=== PATIENT | female | born 1945 | race Caucasian/White ===

== ENCOUNTER 2018-05-20 09:41 | Observation (INO) | payer MEDICARE, SELFPAY ==
[2018-05-20] VITALS (7 sets, daily range): BP systolic 97–123; BP diastolic 58–75; PULSE 75–112; RESP 12–17; TEMP 36.6–36.8; O2SAT 97–100; BMI 22.6; BMI 22.7
[2018-05-20] MEDS: Activated Charcoal/Sorbitol 25 GM/120 ML BOT PO ×2 (09:52→11:07)
--- NOTE | 2018-05-20 09:57 | ED.VISSUMM ---
- ER Visit Summary Date of Service: 05/20/18 Chief Complaint: Overdose History of Present Illness: The patient is a 72 F who has schizophrenia Kist her this morning after which she heard voices telling her to kill him she was so shaken up that she took 15 or 16 tablets of 0.5 mg of Ativan. Her brought her into the emergency department about 25 minutes after she took the tablets. She no longer has these thoughts, she denies any somnolence, or lethargy. She denies suicidal ideations, she just wanted to go to sleep and escape the voices. Physical Examination: Not appear in acute distress. Moist mucous membranes, no obvious facial deformity No C-spine tenderness supple neck. Regular rate and rhythm without any obvious murmurs Clear lungs bilaterally speaking in full sentences without any obvious respiratory distress Abdomen soft and nontender no guarding or rebound Moves all extremities without any difficulty or pain. Skin does not show any obvious rashes or lesions, no trauma. She is lucid coherent speaking in full sentences, she has some delusions, no longer has hallucinations. Alert oriented ?3 with no gross focal deficit Emergency Department Course and Treatment: She received charcoal, she has been observed for 2-1/2 hours and has not had any mental status changes. Because of the long half-life of lorazepam I will admit, after which patient will be evaluated by crisis for placement at a psychiatric facility Disposition: Admit to hospital for observation Impression: Overdose on benzodiazepines This note was generated with [employer] dictation software. It may contain incorrect words, spelling, and punctuation that were not noted in review of the chart prior to signing ED Disposition - Plan for ED Patient: Chief Complaint: Overdose Referrals: Care Physician,No Primary [Primary Care Provider] -
[2018-05-20 10:20] LABS: Absolute Lymphocyte Count 1.39 X10^3/ul (0.83-4.51); Absolute Neutrophil Count 2.6 X10^3/uL (2.0-7.7); Basophil# 0.02 X10^3/uL; Basophil% 0.5 % (0-1); Eosinophil# 0.05 X10^3/uL; Eosinophils% 1.2 % (0-5); Hematocrit 41.1 % (37-47); Hemoglobin 13.6 g/dl (12.0-15.0); Lymphocyte # 1.39 X10^3/ul (4.0); Lymphocyte % 32.5 % (19-41); Mean Corp Hgb Conc 33.1 g/gl (32-36); Mean Corpuscular Hgb 31.6 pg (27.0-32.0); Mean Corpuscular Volume 95.4 fL (81-99); Mean Platelet Vol. 9.2 fl (6.2-12.0); Monocyte# 0.24 X10^3/uL; Monocyte% 5.6 % (0-10); Neutrophil # 2.58 X10^3/uL (2.7-7.7); Neutrophil % 60.2 % (47-70); POSITIVE COUNT NO; POSITIVE DIFFERENTIAL NO; POSITIVE MORPHOLOGY NO; Platelet Count 168 K/mm3 (150-450); RBC Distribution Width CV 12.1 % (11.6-14.6); RBC Distribution Width SD 41.8 fl (35.1-43.9); Red Blood Count 4.31 M/mm3 (4.2-5.4); White Blood Count 4.3 K/mm3 (4.4-11.0)
[2018-05-20 10:28] LABS: Anion Gap 8 (5-15); BUN 9 mg/dL (7-18); BUN/Creat Ratio 12.4 RATIO (10-20); Calcium,Total 8.3 mg/dL (8.5-10.1); Chloride 107 mmol/L (98-107); Creatinine, Serum 0.73 mg/dL (0.55-1.02); EST Glomerular Filtration Rate 84 mL/min (>60); Est Glom Filt Rate - Afr Amer 102 mL/min (>60); Glucose 102 mg/dL (74-106); Potassium 3.8 mmol/L (3.5-5.1); Sodium Level 143 mmol/L (136-145)
[2018-05-20 11:02] LABS: Alcohol, Blood (Medical)-Serum < 3.0 mg/dL
--- NOTE | 2018-05-20 11:33 | PCM.HP.STD ---
Problem List (1) Schizophrenia Status: Chronic (2) Suicide attempt Status: Acute History of Present Illness Date of Admission: 05/20/18 Chief Complaint: suicide attempt The patient is a 72 year old F with a history of schizophrenia who today took 15, 0.5 mg Ativan's after she heard voices telling her to kill her with a knife. She is currently doing okay she was given 2 doses of charcoal in the ER. Vital signs are stable respiratory status is stable she is oxygen eating well. She denies having these thoughts and hearing these voices at this time. She has no other medical history and takes no medications for anything. For the last 7 years she has been having intermittent episodes of delusions and hallucinations. She was just increased 2 days ago and her Seroquel from 300 mg daily to 150 mg in the morning and 450 mg at night. Per her this is the worst episode she has ever had. Past Medical History Past Medical History (Chronic Problems): Chronic Problems Schizophrenia (Chronic) Allergies Sulfa (Sulfonamide Antibiotics) Adverse Reaction (Verified 05/20/18 09:42) Itching Home Medications: Ambulatory Orders Medication Instructions Recorded Lorazepam [Ativan] 0.5 mg PO TID 05/20/18 Quetiapine Fumarate [Seroquel Xr] 150 mg PO DAILY 05/20/18 Quetiapine Fumarate [Seroquel Xr] 450 mg PO QHS 05/20/18 Surgical History: cholecystectomy Psychiatric History: Schizophrenia Smoking Status: Former smoker Tobacco Use: Cigarettes Alcohol: None Drugs: None - *Family History Maternal History Items: - - Psych history Paternal History Items: No pertinent history Review of Systems Constitutional: Denies: Chills, Fever, Weight Change HEENT: Denies: Head Aches, Sinus Congestion, Sinus Drainage Cardiovascular: Denies: Chest Pain, Palpitations Respiratory: Denies: Cough, Shortness of Breath, Shortness of breath at rest, Sputum production Gastrointestinal: Denies: Abdominal Pain, Nausea, Vomiting Genitourinary: Denies: Dysuria Musculoskeletal: Denies: Joint Pain, Joint Tenderness Skin: Denies: Rash, Wounds Neurological: Denies: Numbness, Tingling, Focal weakness Psychiatric: Reports: -. Denies: Anxiety, Depression, Homicidal Ideations, Suicidal Ideations Hematologic/ Lymphatic: Denies: Easy Bruising, Easy Bleeding VTE Information - Inpt Only VTE Present on Admission: No Patient Problems: Active and Suspected Problems Suicide attempt (Acute) - Physical Exam General: Alert, Oriented x3, Cooperative, No apparent distress HEENT: Atraumatic, PERRLA, EOMI, Normocephalic Oral: Moist Mucosa Neck: Supple, No JVD Lungs: Clear to auscultation, Normal air movement, No rhonchi, No wheeze, No rales Cardiovascular: Regular rate, Regular Rhythm, Normal S1, Normal S2, No murmurs Abdomen: Soft, Non Tender, Non-Distended, No Hepato-splenomegaly Extremities: No edema, Capillary Refill Less than 3 Seconds Skin: No rashes, No breakdown Neurological: Neuro grossly intact, Sensory exam intact to light touch and pain Psych/Mental Status: Normal Affect, Appropriate, - - Currently denying any hallucinations, or delusions. Speech pattern was normal, thought process was normal Vital Signs Temp Pulse Resp BP Pulse Ox 98.0 F 93 15 102/67 98 05/20/18 09:43 05/20/18 10:44 05/20/18 10:44 05/20/18 10:44 05/20/18 10:44 Oxygen Delivery Method Room Air Weight: 131 lb 9.855 oz Body Mass Index (BMI) 22.6 Laboratory Tests Past 24 Hrs 05/20/18 05/20/18 05/20/18 10:05 10:05 10:05 WBC 4.3 L RBC 4.31 Hgb 13.6 Hct 41.1 MCV 95.4 MCH 31.6 MCHC 33.1 RDW 12.1 RDW Differential 41.8 Plt Count 168 MPV 9.2 Immature Gran % (Auto) 0.000 Neut % (Auto) 60.2 Lymph % (Auto) 32.5 [place] % (Auto) 5.6 Eos % (Auto) 1.2 Baso % (Auto) 0.5 Absolute Neuts (auto) 2.6 Absolute Lymphs (auto) 1.39 Total Counted Not Reportable Sodium 143 Potassium 3.8 Chloride 107 Carbon Dioxide 28.0 Anion Gap 8 BUN 9 Creatinine 0.73 Estim Creat Clear Calc 45.20 Est GFR (MDRD) Af Amer 102 Est GFR (MDRD) Non-Af 84 BUN/Creatinine Ratio 12.4 Glucose 102 Calcium 8.3 L Urine Opiates Screen Urine Methadone Screen Ur Barbiturates Screen Ur Phencyclidine Scrn Ur Amphetamines Screen U Methamphetamin-MDMA U Benzodiazepines Scrn Urine Cocaine Screen U Cannabinoids Screen Ur Drug Screen Comment Ethyl Alcohol < 3.0 05/20/18 11:30 WBC RBC Hgb Hct MCV MCH MCHC RDW RDW Differential Plt Count MPV Immature Gran % (Auto) Neut % (Auto) Lymph % (Auto) [place] % (Auto) Eos % (Auto) Baso % (Auto) Absolute Neuts (auto) Absolute Lymphs (auto) Total Counted Sodium Potassium Chloride Carbon Dioxide Anion Gap BUN Creatinine Estim Creat Clear Calc Est GFR (MDRD) Af Amer Est GFR (MDRD) Non-Af BUN/Creatinine Ratio Glucose Calcium Urine Opiates Screen Pending Urine Methadone Screen Pending Ur Barbiturates Screen Pending Ur Phencyclidine Scrn Pending Ur Amphetamines Screen Pending U Methamphetamin-MDMA Pending U Benzodiazepines Scrn Pending Urine Cocaine Screen Pending U Cannabinoids Screen Pending Ur Drug Screen Comment Pending Ethyl Alcohol Assessment/Plan All Active Problems Suicide attempt (Acute) 1. Schizophrenia with attempted suicide -She states that she took the Ativan because the voices told her to kill her with a knife and she did not want to and she thought that she took the Ativan she would go to sleep and not hurt him -Received 2 doses of charcoal in the ER -Currently stable, respirations are stable, all vital signs are stable -She is medically cleared to be seen by crisis to an inpatient mental health facility -Resume her home Seroquel regimen of 450 mg at night and 150 mg in the morning. DVT: Lovenox/SCDs Code Visit OBSV E&M: 48790 Initial observation care L2
[2018-05-20 11:59] LABS: Amphetamine Urine VISTA NEGATIVE (<1000 ng/mL); Barbiturate Urine VISTA NEGATIVE (< 200 ng/mL); Benzodiazepine Urine VISTA NEGATIVE (< 200 ng/mL); Cocaine Urine VISTA NEGATIVE (< 300 ng/mL); Ecstacy Urine VISTA NEGATIVE (< 500 ng/mL); Methadone Urine VISTA NEGATIVE (< 300 ng/mL); PCP Urine VISTA NEGATIVE (< 25 ng/mL); THC Urine VISTA NEGATIVE (< 50 ng/mL); Vista UDS pH Range 6
--- NOTE | 2018-05-20 15:06 | NURSING ---
spoke with Crisis. after 24hrs obs will reeval. pt
[2018-05-21 02:00] VITALS: BP 119/75; PULSE 72; RESP 16; TEMP 36.4; O2SAT 100
[2018-05-21 09:42] LABS: Absolute Neutrophil Count 3.3 X10^3/uL (2.0-7.7); Basophil# 0.02 X10^3/uL; Basophil% 0.4 % (0-1); Eosinophil# 0.03 X10^3/uL; Eosinophils% 0.7 % (0-5); Hematocrit 38.2 % (37-47); Hemoglobin 13.2 g/dl (12.0-15.0); Lymphocyte % 21.9 % (19-41); Mean Corp Hgb Conc 34.6 g/gl (32-36); Mean Corpuscular Volume 92.7 fL (81-99); Mean Platelet Vol. 9.1 fl (6.2-12.0); Monocyte# 0.19 X10^3/uL; Monocyte% 4.2 % (0-10); Neutrophil # 3.32 X10^3/uL (2.7-7.7); Neutrophil % 72.6 % (47-70); POSITIVE COUNT NO; POSITIVE DIFFERENTIAL NO; POSITIVE MORPHOLOGY NO; Platelet Count 161 K/mm3 (150-450); RBC Distribution Width CV 11.7 % (11.6-14.6); RBC Distribution Width SD 39.6 fl (35.1-43.9); Red Blood Count 4.12 M/mm3 (4.2-5.4); White Blood Count 4.6 K/mm3 (4.4-11.0)
[2018-05-21 09:56] LABS: AST(SGOT) 18 U/L (15-37); Alanine Aminotransfer ALT/SGPT 30 U/L (13-56); Albumin, Serum 3.2 g/dL (3.2-5.0); Alkaline Phosphatase 132 U/L (45-117); Anion Gap 10 (5-15); BUN 6 mg/dL (7-18); BUN/Creat Ratio 10.4 RATIO (10-20); Calcium,Total 8.2 mg/dL (8.5-10.1); Chloride 103 mmol/L (98-107); Creatinine, Serum 0.58 mg/dL (0.55-1.02); EST Glomerular Filtration Rate 109 mL/min (>60); Est Glom Filt Rate - Afr Amer 132 mL/min (>60); Globulin 3.3 g/dL (2.2-4.2); Glucose 119 mg/dL (74-106); Potassium 3.8 mmol/L (3.5-5.1); Protein, Total 6.5 g/dL (6.4-8.2); Sodium Level 140 mmol/L (136-145)
[2018-05-21 10:00] VITALS: BP 124/81; PULSE 86; RESP 16; TEMP 36.7; O2SAT 97
--- NOTE | 2018-05-21 11:17 | CHAPLAIN ---
patient was sleeping; staff indicated that pt had been awake all night and sleeping would be expected for today
--- NOTE | 2018-05-21 15:26 | PCM.PN.HOSP ---
Patient Problems: Active and Suspected Problems Suicide attempt (Acute) Subjective: Patient seen and examined. She was admitted yesterday with a complaint of suicidal attempt of 6-15 0.5 mg Ativan because she had voices telling her to kill her with a knife. She received 2 doses of charcoal in the ED. She denies any suicidal ideation and denies any fever or chills, cough or chest pain, shortness of breath, abdominal pain, diarrhea vomiting. She only complains of tremors. Review of systems otherwise negative. Labs and vitals reviewed. Vitals/I&O's: Vital Signs Temp Pulse Resp BP Pulse Ox 98.1 F 86 16 124/81 H 97 05/21/18 10:00 05/21/18 10:00 05/21/18 10:00 05/21/18 10:00 05/21/18 10:00 Oxygen Delivery Method Room Air Weight: 132 lb 0.91 oz Body Mass Index (BMI) 22.6 Intake and Output for Last 24 Hours 05/19/18 05/20/18 05/21/18 23:59 23:59 23:59 Intake Total 1800 / 1800 1800 / 1800 Output Total 3150 / 3150 Balance 1800 / 1800 -1350 / -1350 General: Alert, Oriented x3, Cooperative, No apparent distress HEENT: Atraumatic, PERRLA, EOMI, Normocephalic Oral: Moist Mucosa Neck: Supple, No JVD, Negative Carotid Bruits Lungs: Clear to auscultation, Normal air movement, No rhonchi, No wheeze, No rales Cardiovascular: Regular rate, Regular Rhythm, Normal S1, Normal S2, No murmurs Abdomen: Bowel Sounds Present, Soft, Non Tender, Non-Distended, No Hepato-splenomegaly Extremities: No clubbing, No cyanosis, No edema, Capillary Refill Less than 3 Seconds Skin: No rashes, No breakdown Musculoskeletal: No Tenderness to Palpation of Joints or Extremities Lymphatic: No Cervical, Supraclavicular, or Inguinal Adenopathy Neurological: Cranial nerves II-XII grossly intact, Neuro grossly intact, Motor Exam 5/5 strength throughout Psych/Mental Status: Normal Affect, Appropriate, Alert and oriented to time, place, person, mood and affect Laboratory Results 05/21/18 09:30: WBC 4.6, RBC 4.12 L, Hgb 13.2, Hct 38.2, MCV 92.7, MCH 32.0, MCHC 34.6, RDW 11.7, RDW Differential 39.6, Plt Count 161, MPV 9.1, Immature Gran % (Auto) 0.200, Neut % (Auto) 72.6 H, Lymph % (Auto) 21.9, [place] % (Auto) 4.2, Eos % (Auto) 0.7, Baso % (Auto) 0.4, Absolute Neuts (auto) 3.3, Absolute Lymphs (auto) 1.00, Total Counted Not Reportable 05/21/18 09:30: Sodium 140, Potassium 3.8, Chloride 103, Carbon Dioxide 27.0, Anion Gap 10, BUN 6 L, Creatinine 0.58, Estim Creat Clear Calc 45.20, Est GFR (MDRD) Af Amer 132, Est GFR (MDRD) Non-Af 109, BUN/Creatinine Ratio 10.4, Glucose 119 H, Calcium 8.2 L, Total Bilirubin 0.20, AST 18, ALT 30, Alkaline Phosphatase 132 H, Total Protein 6.5, Albumin 3.2, Globulin 3.3, Albumin/Globulin Ratio 1.0 Current Medications Enoxaparin Sodium (Lovenox) 40 mg SC DAILY@1000 SAIRA Last Admin: 05/21/18 10:50 Dose: Not Given Magnesium Hydroxide (Milk Of Magnesia) 30 ml PO DAILY PRN PRN PRN Reason: Constipation Medical Necessity - Tobacco Use Smoking Status: Former smoker Tobacco Use: Cigarettes Assessment/Plan All Active Problems Suicide attempt (Acute) 1. Suicidal attempt Attempted suicide with overdose of Ativan on account of auditory hallucinations telling her to call has been with a knife. Has remained stable. He seems to doses of charcoal in the ED. On Seroquel 50 mg at night, 50 mg in the morning. Evaluated by crisis today and pink slipped. Awaiting placement in a psychiatric facility. DVT prophylaxis: Lovenox Code Visit Inpatient E&M: 43915 Subs Hosp L2
--- NOTE | 2018-05-21 15:31 | PN_ITS ---
Patient Problems: Active and Suspected Problems Suicide attempt (Acute) Subjective: Patient seen and examined. She was admitted yesterday with a complaint of suicidal attempt of 6-15 0.5 mg Ativan because she had voices telling her to kill her with a knife. She received 2 doses of charcoal in the ED. She denies any suicidal ideation and denies any fever or chills, cough or chest pain, shortness of breath, abdominal pain, diarrhea vomiting. She only complains of tremors. Review of systems otherwise negative. Labs and vitals reviewed. Vitals/I&O's: Vital Signs Temp Pulse Resp BP Pulse Ox 98.1 F 86 16 124/81 H 97 05/21/18 10:00 05/21/18 10:00 05/21/18 10:00 05/21/18 10:00 05/21/18 10:00 Oxygen Delivery Method Room Air Weight: 132 lb 0.91 oz Body Mass Index (BMI) 22.6 Intake and Output for Last 24 Hours 05/19/18 05/20/18 05/21/18 23:59 23:59 23:59 Intake Total 1800 / 1800 1800 / 1800 Output Total 3150 / 3150 Balance 1800 / 1800 -1350 / -1350 General: Alert, Oriented x3, Cooperative, No apparent distress HEENT: Atraumatic, PERRLA, EOMI, Normocephalic Oral: Moist Mucosa Neck: Supple, No JVD, Negative Carotid Bruits Lungs: Clear to auscultation, Normal air movement, No rhonchi, No wheeze, No rales Cardiovascular: Regular rate, Regular Rhythm, Normal S1, Normal S2, No murmurs Abdomen: Bowel Sounds Present, Soft, Non Tender, Non-Distended, No Hepato- splenomegaly Extremities: No clubbing, No cyanosis, No edema, Capillary Refill Less than 3 Seconds Skin: No rashes, No breakdown Musculoskeletal: No Tenderness to Palpation of Joints or Extremities Lymphatic: No Cervical, Supraclavicular, or Inguinal Adenopathy Neurological: Cranial nerves II-XII grossly intact, Neuro grossly intact, Motor Exam 5/5 strength throughout Psych/Mental Status: Normal Affect, Appropriate, Alert and oriented to time, place, person, mood and affect Laboratory Results 05/21/18 09:30: WBC 4.6, RBC 4.12 L, Hgb 13.2, Hct 38.2, MCV 92.7, MCH 32.0, MCHC 34.6, RDW 11.7, RDW Differential 39.6, Plt Count 161, MPV 9.1, Immature Gran % (Auto) 0.200, Neut % (Auto) 72.6 H, Lymph % (Auto) 21.9, [place] % (Auto) 4.2, Eos % (Auto) 0.7, Baso % (Auto) 0.4, Absolute Neuts (auto) 3.3, Absolute Lymphs (auto) 1.00, Total Counted Not Reportable 05/21/18 09:30: Sodium 140, Potassium 3.8, Chloride 103, Carbon Dioxide 27.0, Anion Gap 10, BUN 6 L, Creatinine 0.58, Estim Creat Clear Calc 45.20, Est GFR (MDRD) Af Amer 132, Est GFR (MDRD) Non-Af 109, BUN/Creatinine Ratio 10.4, Glucose 119 H, Calcium 8.2 L, Total Bilirubin 0.20, AST 18, ALT 30, Alkaline Phosphatase 132 H, Total Protein 6.5, Albumin 3.2, Globulin 3.3, Albumin/Globulin Ratio 1.0 Current Medications Enoxaparin Sodium (Lovenox) 40 mg SC DAILY@1000 SAIRA Last Admin: 05/21/18 10:50 Dose: Not Given Magnesium Hydroxide (Milk Of Magnesia) 30 ml PO DAILY PRN PRN PRN Reason: Constipation Medical Necessity - Tobacco Use Smoking Status: Former smoker Tobacco Use: Cigarettes Assessment/Plan All Active Problems Suicide attempt (Acute) 1. Suicidal attempt * Attempted suicide with overdose of Ativan on account of auditory hallucinations telling her to call has been with a knife. * Has remained stable. He seems to doses of charcoal in the ED. * On Seroquel 50 mg at night, 50 mg in the morning. * Evaluated by crisis today and pink slipped. Awaiting placement in a psychiatric facility. * DVT prophylaxis: Lovenox Code Visit Inpatient E&M: 44050 Subs Hosp L2
--- NOTE | 2018-05-21 15:46 | CHAPLAIN ---
Type of Pastoral Visit _x__ Initial Visit ___ Follow-up Visit ___ On-call Visit ___ General Patient Visit ___ Spiritual Assessment ___ Family Conference ___ Bereavement ___ Rapid Response ___ Code Blue ___ Other (describe below) Pastoral Care Referral From _x__ Patient _x__ Family ___ Nurse ___ Physician ___ [employer] ___ Title Insurance Agent ___ Other (describe below) Sacrament/Intervention _x__ Active listening ___ Anointing ___ Jainism ___ Bereavement ___ Communion _x__ Tanisha exploration ___ _x__ Life review _x__ Prayer ___ Reconciliation ___ Sacrament of Sick _x__ Supportive presence ___ Wedding ___ Other (describe below) Pastoral Comments
[2018-05-21 16:00] VITALS: BP 121/85; PULSE 78; RESP 16; TEMP 36.7; O2SAT 98
--- NOTE | 2018-05-21 16:21 | PCM.TXEXTCAR ---
- Diet 05/20/18 13:45 Diet: Regular Diet Food consistency:: Regular Liquid Consistency:: Regular/Thin Diet Comments: suicide precautions; finger food. VEGAN - Routine Orders/Code Status Enema Type: Fleetz Enema Frequency: Daily PRN Suppository Type: Dulcolax 10mg Suppository Frequency: Daily PRN Code Status: Full Code - Therapies Weight Bearing: Weight bearing as tolerated - Allergies/Procedures Done in Hospital Allergies/Adverse Reactions: Allergies Sulfa (Sulfonamide Antibiotics) Adverse Reaction (Verified 05/20/18 09:42) Itching Procedures: None - Type of Care/Length of Stay Estimated LOS: Convalescent Care Less Than 30 days Type of Care Needed: Skilled - inpatient Psych facility Rehab Potential: Fair Prognosis: Fair - Additional Orders/Day of Discharge Day of Discharge: 05/21/18 - Follow Up Care Primary Care Physician: Care Physician,No Primary [Primary Care Provider] -
[2018-05-21] MEDS: QUEtiapine 100 MG Tablet 300 MG PO (20:16)
[2018-05-21 20:21] VITALS: BP 130/81; PULSE 68; RESP 17; TEMP 36.9; O2SAT 97
[2018-05-22 02:38] VITALS: BP 118/67; PULSE 89; RESP 16; TEMP 36.6; O2SAT 95
--- NOTE | 2018-05-22 08:05 | NURSING ---
called placed to crisis awaiting return call from [facility]
--- NOTE | 2018-05-22 09:11 | NURSING ---
into pt's room as pt continues pacing and now spitting everywhere. attempted to verbally descallate patient, unsuccessful, pt started hitting at this staff member and kicking at sitter. orion STREETER into room also attempting to desculate patient pt continues to spit and hit at staff. attempted to get patient to sit in chair or wear a mask if going to spit, unsuccessful. pt attempting to run out of room. pt's showed up at doorway. pt asked pt's are you the devil? states that the sitter is with the devil and that the staff are the devils. able to talk patient down enough that she's not spitting anymore. updated. informed that this nurse had left a message for crisis at [phone]. informed her that pt is refusing care and this nurse is unable to get seroquel into pt this a.m. discussed ativan/haldol/geodon/restraints. instructed to call crisis again in attempts to expodite placement.
--- NOTE | 2018-05-22 09:23 | NURSING ---
0915 talked with micheal from crisis again aware he placed a call to [facility] from [facility] regarding placement, talked to maryann from [facility] report given aware she is 1-1.5hr away from being here, aware there is a pink slip signed on the chart already, aware that maryann is going to call her physician and see if she can get the transfer process moving. maryann is aware pt's is in the room
[2018-05-22] MEDS: QUEtiapine 100 MG Tablet 300 MG PO (10:36)
[2018-05-22 10:40] VITALS: BP 96/72; PULSE 70; RESP 16; TEMP 36.6; O2SAT 98
--- NOTE | 2018-05-22 10:42 | NURSING ---
pt found sitting quietly on bed with with his arm wrapped around her. pt much more agreeable to treatment at this time, allowed for vitals, assessment and agreeable to take seroquel with her 's reassurance. pt and denies all needs at present and are aware we are awaiting maryann from [facility]. emilie montgomery
--- NOTE | 2018-05-22 11:26 | NURSING ---
transport given report. maryann from [facility] remains here.
--- NOTE | 2018-05-22 13:31 | PCM.DC.SUM ---
Discharge Date and Diagnosis Date of Admission: 05/20/18 Date of Discharge: 05/22/18 - Secondary Discharge Diagnosis Chronic Problems Schizophrenia (Chronic) Hospital Course and Treatment Operations: None Procedures: None Summary of Care Provided: Patient is a 72-year-old female with a history of schizophrenia who was admitted after suicidal attempt. She took 15 0.5 mg Ativan tablets after she heard voices telling her to kill her with a knife. Since she did not want to kill her , she decided to kill herself. She was given 2 doses of charcoal in the ED and admitted for close monitoring. Patient was on Seroquel and Ativan and these were held during her admission. Patient stabilized but subsequently became even more confused and on day of discharge was suspected that everybody over the light of able to come close to her. She became more agitated with the nurses. Her Seroquel was resumed though Ativan was still held. She was evaluated by mental health crisis and pink slipped. She was transferred to [facility] on 05/22/2018. Patient seen and examined prior to discharge. She was quite agitated and spitting and pacing all over the room. She would not answer any questions and would not allow anyone to examine her. Unable to do review of systems and physical examination on day of discharge because of patient's agitation and uncooperation She is to follow-up with her primary care doctor and psychiatrist once she is discharged from [facility].[] - Physical Exam Vital Signs Temp Pulse Resp BP Pulse Ox 97.8 F 70 16 96/72 98 05/22/18 10:40 05/22/18 10:40 05/22/18 10:40 05/22/18 10:40 05/22/18 10:40 Oxygen Delivery Method Room Air Weight: 132 lb 0.91 oz Body Mass Index (BMI) 22.6 Intake and Output for Last 24 Hours 05/20/18 05/21/18 05/22/18 23:59 23:59 23:59 Intake Total 1800 / 1800 2040 / 2040 1000 / 1000 Output Total 4450 / 4450 200 / 200 Balance 1800 / 1800 -2410 / -2410 800 / 800 Laboratory Tests 05/21/18 05/21/18 05/20/18 Range/Units 09:30 09:30 11:30 WBC 4.6 (4.4-11.0) K/mm3 RBC 4.12 L (4.2-5.4) M/mm3 Hgb 13.2 (12.0-15.0) g/dl Hct 38.2 (37-47) % MCV 92.7 (81-99) fL MCH 32.0 (27.0-32.0) pg MCHC 34.6 (32-36) g/gl RDW 11.7 (11.6-14.6) % RDW Differential 39.6 (35.1-43.9) fl Plt Count 161 (150-450) K/mm3 MPV 9.1 (6.2-12.0) fl Immature Gran % (Auto) 0.200 (0.0-0.9) % Neut % (Auto) 72.6 H (47-70) % Lymph % (Auto) 21.9 (19-41) % [place] % (Auto) 4.2 (0-10) % Eos % (Auto) 0.7 (0-5) % Baso % (Auto) 0.4 (0-1) % Absolute Neuts (auto) 3.3 (2.0-7.7) X10^3/uL Absolute Lymphs (auto) 1.00 (0.83-4.51) X10^3/ul Total Counted Not Reportable Sodium 140 (136-145) mmol/L Potassium 3.8 (3.5-5.1) mmol/L Chloride 103 (98-107) mmol/L Carbon Dioxide 27.0 (21.0-32.0) mmol/L Anion Gap 10 (5-15) BUN 6 L (7-18) mg/dL Creatinine 0.58 (0.55-1.02) mg/dL Estim Creat Clear Calc 45.20 ml/min Est GFR (MDRD) Af Amer 132 (>60) mL/min Est GFR (MDRD) Non-Af 109 (>60) mL/min BUN/Creatinine Ratio 10.4 (10-20) RATIO Glucose 119 H (74-106) mg/dL Calcium 8.2 L (8.5-10.1) mg/dL Total Bilirubin 0.20 (0.20-1.00) mg/dL AST 18 (15-37) U/L ALT 30 (13-56) U/L Alkaline Phosphatase 132 H (45-117) U/L Total Protein 6.5 (6.4-8.2) g/dL Albumin 3.2 (3.2-5.0) g/dL Globulin 3.3 (2.2-4.2) g/dL Albumin/Globulin Ratio 1.0 (0.9-2.4) RATIO Urine Opiates Screen NEGATIVE (< 300 ng/mL) Urine Methadone Screen NEGATIVE (< 300 ng/mL) Ur Barbiturates Screen NEGATIVE (< 200 ng/mL) Ur Phencyclidine Scrn NEGATIVE (< 25 ng/mL) Ur Amphetamines Screen NEGATIVE (<1000 ng/mL) U Methamphetamin-MDMA NEGATIVE (< 500 ng/mL) U Benzodiazepines Scrn NEGATIVE (< 200 ng/mL) Urine Cocaine Screen NEGATIVE (< 300 ng/mL) U Cannabinoids Screen NEGATIVE (< 50 ng/mL) Ur Drug Screen Comment Ethyl Alcohol mg/dL 05/20/18 05/20/18 05/20/18 Range/Units 10:05 10:05 10:05 WBC 4.3 L (4.4-11.0) K/mm3 RBC 4.31 (4.2-5.4) M/mm3 Hgb 13.6 (12.0-15.0) g/dl Hct 41.1 (37-47) % MCV 95.4 (81-99) fL MCH 31.6 (27.0-32.0) pg MCHC 33.1 (32-36) g/gl RDW 12.1 (11.6-14.6) % RDW Differential 41.8 (35.1-43.9) fl Plt Count 168 (150-450) K/mm3 MPV 9.2 (6.2-12.0) fl Immature Gran % (Auto) 0.000 (0.0-0.9) % Neut % (Auto) 60.2 (47-70) % Lymph % (Auto) 32.5 (19-41) % [place] % (Auto) 5.6 (0-10) % Eos % (Auto) 1.2 (0-5) % Baso % (Auto) 0.5 (0-1) % Absolute Neuts (auto) 2.6 (2.0-7.7) X10^3/uL Absolute Lymphs (auto) 1.39 (0.83-4.51) X10^3/ul Total Counted Not Reportable Sodium 143 (136-145) mmol/L Potassium 3.8 (3.5-5.1) mmol/L Chloride 107 (98-107) mmol/L Carbon Dioxide 28.0 (21.0-32.0) mmol/L Anion Gap 8 (5-15) BUN 9 (7-18) mg/dL Creatinine 0.73 (0.55-1.02) mg/dL Estim Creat Clear Calc 45.20 ml/min Est GFR (MDRD) Af Amer 102 (>60) mL/min Est GFR (MDRD) Non-Af 84 (>60) mL/min BUN/Creatinine Ratio 12.4 (10-20) RATIO Glucose 102 (74-106) mg/dL Calcium 8.3 L (8.5-10.1) mg/dL Total Bilirubin (0.20-1.00) mg/dL AST (15-37) U/L ALT (13-56) U/L Alkaline Phosphatase (45-117) U/L Total Protein (6.4-8.2) g/dL Albumin (3.2-5.0) g/dL Globulin (2.2-4.2) g/dL Albumin/Globulin Ratio (0.9-2.4) RATIO Urine Opiates Screen (< 300 ng/mL) Urine Methadone Screen (< 300 ng/mL) Ur Barbiturates Screen (< 200 ng/mL) Ur Phencyclidine Scrn (< 25 ng/mL) Ur Amphetamines Screen (<1000 ng/mL) U Methamphetamin-MDMA (< 500 ng/mL) U Benzodiazepines Scrn (< 200 ng/mL) Urine Cocaine Screen (< 300 ng/mL) U Cannabinoids Screen (< 50 ng/mL) Ur Drug Screen Comment Ethyl Alcohol < 3.0 mg/dL Discharge Diet: Low fat/ Low Cholesterol Home Medications: Medications to take at Discharge Lorazepam [Ativan] 0.5 mg PO TID 05/20/18 Quetiapine Fumarate [Seroquel XR] 450 mg PO QHS 05/20/18 Quetiapine Fumarate [Seroquel Xr] 150 mg PO DAILY 05/20/18 Primary Care Physician: Care Physician,No Primary [Primary Care Provider] - Disposition: Psych Hospital or Unit Minutes spent on discharge:: 45 Patient Condition:: Stable Medical Necessity - Tobacco Use Smoking Status: Former smoker Tobacco Use: Cigarettes Meaningful Use Info Meaningful Use Diagnoses (Choose all that apply): None applicable Code Visit Inpatient E&M: 38320 Disch Hosp
== END 2018-05-22 11:34 ==
LOC: ED 10:04 → MS3 14:01
PROVIDERS: Admitting Provider Family Medicine; Emergency Provider Emergency Medicine; Visit Provider Student in an Organized Health Care Education/Training Program
DX: T42.4X2A Poisoning by benzodiazepines, intentional self-harm, initial encounter (principal); R41.0 Disorientation, unspecified; F20.9 Schizophrenia, unspecified; Z79.899 Other long term (current) drug therapy; Z87.891 Personal history of nicotine dependence
CPT/HCPCS: 36415; 80048; 80053; 80307; 80320; 85025; 99218; 99283; G0378; G0480

== ENCOUNTER 2018-06-27 11:48 | Emergency (ER) | payer MEDICARE, SELFPAY ==
[2018-05-20 13:22] VITALS: BMI 22.6
[2018-06-27 11:49] VITALS: BP 125/76; PULSE 92; RESP 20; TEMP 36.9; O2SAT 99; BMI 23.5
[2018-06-27] MEDS: LORazepam 2 MG/ML Syringe IM (12:32)
[2018-06-27] MEDS: DiphenhydrAMINE 50 MG/ML Syringe IM (12:32)
[2018-06-27] MEDS: Haloperidol Lactate 5 MG/ML Vial IM (12:32)
--- NOTE | 2018-06-27 12:33 | ED.VISSUMM ---
- ER Visit Summary Date of Service: 06/27/18 Chief Complaint: Shouting and psychotic History of Present Illness: The patient is a 72 F with a history of schizophrenia, just released from an inpatient psychiatric facility 2 weeks ago presenting with acute psychosis. She has been refusing to take her medications and has been spitting out her pills according to her . She has been increasingly paranoid and combative. He already spoke with her psychiatrist and she was accepted for admission at [facility] where she was previously admitted however she was too combative to be transported there by their private transfer service and she was therefore brought here for medical clearance, possible medication, and then to be transferred. There has been no recent head trauma or infection according to her . He had a brain CT prior to her last admission and a full medical clearance workup. Physical Examination: Also within normal limits. She appears agitated and screaming quite loudly in the emergency department and combative. No signs of head trauma. Heart tones are regular and without murmur. Lungs are clear bilaterally. Abdomen is soft and nontender. No obvious focal or lateralizing neuro findings but she is combative and agitated Test Results: CBC and BMP are pending and will be faxed to the receiving facility Emergency Department Course and Treatment: I discussed the case with the transfer worker at [facility]. They do not require a repeat brain CT since she just had one and requested only a CBC and CMP for their review. It will be faxed. She was treated with Haldol, Benadryl, and Ativan intramuscularly and remained calm and cooperative. She was accepted for admission at their facility and they are sending their private ambulance service. Treatment Plan: Transfer to [facility] Disposition: Transfer Impression: Initial encounter acute psychosis with history of schizophrenia and medication noncompliance This note was generated with [employer] dictation software. It may contain incorrect words, spelling, and punctuation that were not noted in review of the chart prior to signing ED Disposition - Plan for ED Patient: Referrals: Care Physician,No Primary [Primary Care Provider] -
--- NOTE | 2018-06-27 12:36 | ED.DCSUM_ITS ---
- ER Visit Summary Date of Service: 06/27/18 Chief Complaint: Shouting and psychotic History of Present Illness: The patient is a 72 F with a history of schizophrenia, just released from an inpatient psychiatric facility 2 weeks ago presenting with acute psychosis. She has been refusing to take her medications and has been spitting out her pills according to her . She has been increasingly paranoid and combative. He already spoke with her psychiatrist and she was accepted for admission at [facility] where she was previously admitted however she was too combative to be transported there by their private transfer service and she was therefore brought here for medical clearance, possible medication, and then to be transferred. There has been no recent head trauma or infection according to her . He had a brain CT prior to her last admission and a full medical clearance workup. Physical Examination: Also within normal limits. She appears agitated and screaming quite loudly in the emergency department and combative. No signs of head trauma. Heart tones are regular and without murmur. Lungs are clear bilaterally. Abdomen is soft and nontender. No obvious focal or lateralizing neuro findings but she is combative and agitated Test Results: CBC and BMP are pending and will be faxed to the receiving facility Emergency Department Course and Treatment: I discussed the case with the mortgage loan coordinator at [facility]. They do not require a repeat brain CT since she just had one and requested only a CBC and CMP for their review. It will be faxed. She was treated with Haldol, Benadryl, and Ativan intramuscularly and remained calm and cooperative. She was accepted for admission at their facility and they are sending their private ambulance service. Treatment Plan: Transfer to [facility] Disposition: Transfer Impression: Initial encounter acute psychosis with history of schizophrenia and medication noncompliance This note was generated with [employer] dictation software. It may contain incorrect words, spelling, and punctuation that were not noted in review of the chart prior to signing ED Disposition - Plan for ED Patient: Referrals: Care Physician,No Primary [Primary Care Provider] -
[2018-06-27 13:32] LABS: Absolute Lymphocyte Count 1.48 X10^3/ul (0.83-4.51); Absolute Neutrophil Count 6.6 X10^3/uL (2.0-7.7); Basophil# 0.01 X10^3/uL; Basophil% 0.1 % (0-1); Hematocrit 34.7 % (37-47); Hemoglobin 11.7 g/dl (12.0-15.0); Lymphocyte # 1.48 X10^3/ul (4.0); Lymphocyte % 16.7 % (19-41); Mean Corp Hgb Conc 33.7 g/gl (32-36); Mean Corpuscular Hgb 31.1 pg (27.0-32.0); Mean Corpuscular Volume 92.3 fL (81-99); Mean Platelet Vol. 8.9 fl (6.2-12.0); Monocyte# 0.75 X10^3/uL; Monocyte% 8.4 % (0-10); Neutrophil # 6.62 X10^3/uL (2.7-7.7); Neutrophil % 74.6 % (47-70); Platelet Count 234 K/mm3 (150-450); RBC Distribution Width CV 12.2 % (11.6-14.6); RBC Distribution Width SD 39.8 fl (35.1-43.9); Red Blood Count 3.76 M/mm3 (4.2-5.4); White Blood Count 8.9 K/mm3 (4.4-11.0)
[2018-06-27 13:33] LABS: POSITIVE COUNT NO; POSITIVE DIFFERENTIAL NO; POSITIVE MORPHOLOGY NO
[2018-06-27 13:46] LABS: ALB/GLOB Ratio 1.2 RATIO (0.9-2.4); AST(SGOT) 22 U/L (15-37); Alanine Aminotransfer ALT/SGPT 26 U/L (13-56); Albumin, Serum 3.4 g/dL (3.2-5.0); Alkaline Phosphatase 122 U/L (45-117); Anion Gap 10 (5-15); BUN 6 mg/dL (7-18); BUN/Creat Ratio 8.7 RATIO (10-20); Chloride 88 mmol/L (98-107); Creatinine, Serum 0.69 mg/dL (0.55-1.02); EST Glomerular Filtration Rate 90 mL/min (>60); Est Glom Filt Rate - Afr Amer 108 mL/min (>60); Globulin 2.9 g/dL (2.2-4.2); Glucose 80 mg/dL (74-106); Protein, Total 6.3 g/dL (6.4-8.2); Sodium Level 122 mmol/L (136-145)
[2018-06-27 14:13] LABS: Bacteria 0 SEEN /hpf (None Seen); Mucous, Urine 0 SEEN /hpf (<or=2+); Red Blood Cells-Urine 0 SEEN /hpf (0-5); Squamous Epithelial Cells - UA 0 SEEN /hpf (5-10); White Blood Cells 0 SEEN /hpf (0-5)
[2018-06-27 14:17] LABS: Color, Urine Yellow (Yellow); Glucose, Dipstick Normal (Normal); Ketone-Dipstick Negative (Negative); Leukocyte Esterase-Dipstick Negative /ul (Negative); Nitrite-Dipstick Negative (Negative); Occult Blood-Urine Negative /ul (Negative); Protein-Dipstick Negative (Negative); Urine Bilirubin Dipstick Negative (Negative); Urine Clarity Clear (Clear); Urine Urobilinogen Normal (Normal)
[2018-06-27 14:19] VITALS: BP 122/92; PULSE 89; RESP 16; O2SAT 100
[2018-06-27 16:16] VITALS: BP 105/57; PULSE 73; RESP 16; O2SAT 100
--- NOTE | 2018-06-27 17:09 | CON.PCM_ITS ---
Problem List (1) Hyponatremia Status: Acute Consultation - Renal 06/27/18 PCP/ Referring MD: Requesting physician: ER Primary care physician: No Primary Care Phys Reason for Consultation:: Hyponatremia - History of Present Illness History of Present Illness: The patient is a 72 year old F who came in to ER with acute psychosis she was recently admitted at inpatient psychaitric facility and was discharged 2 weeks ago now in psychosis again. apparently she did not take any medications for the last few days sodium was 122. hence renal consulted for clearance tells me that she drank almost 2 gallons of water before she came in. apparently she doesnt do this when she is lucid - Allergies Allergies: Allergies Sulfa (Sulfonamide Antibiotics) Adverse Reaction (Verified 05/20/18 09:42) Itching - Past Medical History Past Medical History (Chronic Problems): Chronic Problems Schizophrenia (Chronic) - Past Surgical History Surgical History: cholecystectomy - Social History Smoking Status: Never smoker - Family History Maternal History Items: - - Psych history Paternal History Items: No pertinent history Review of Systems Unable to obtain accurate/complete ROS d/t: due to medications Patient Problems: Active and Suspected Problems Hyponatremia (Acute) - Physical Exam HEENT: Atraumatic, PERRLA, EOMI, Normocephalic Neck: Supple, No JVD, Negative Carotid Bruits Lungs: Clear to auscultation, Normal air movement Cardiovascular: Regular rate, No murmurs Abdomen: Bowel Sounds Present, Soft, Non Tender Extremities: No edema, Capillary Refill Less than 3 Seconds Skin: No rashes, No breakdown Musculoskeletal: No Tenderness to Palpation of Joints or Extremities Vital Signs Temp Pulse Resp BP Pulse Ox 98.5 F 73 16 105/57 L 100 06/27/18 11:49 06/27/18 16:16 06/27/18 16:16 06/27/18 16:16 06/27/18 16:16 Oxygen Delivery Method Room Air Weight: 62.1 kg Body Mass Index (BMI) 23.5 Laboratory Tests Past 24 Hrs 06/27/18 06/27/18 06/27/18 13:22 13:22 14:07 WBC 8.9 RBC 3.76 L Hgb 11.7 L Hct 34.7 L MCV 92.3 MCH 31.1 MCHC 33.7 RDW 12.2 RDW Differential 39.8 Plt Count 234 MPV 8.9 Immature Gran % (Auto) 0.200 Neut % (Auto) 74.6 H Lymph % (Auto) 16.7 L [place] % (Auto) 8.4 Eos % (Auto) 0.0 Baso % (Auto) 0.1 Absolute Neuts (auto) 6.6 Absolute Lymphs (auto) 1.48 Total Counted Not Reportable Sodium 122 L Potassium 4.0 Chloride 88 L Carbon Dioxide 24.0 Anion Gap 10 BUN 6 L Creatinine 0.69 Estim Creat Clear Calc 45.20 Est GFR (MDRD) Af Amer 108 Est GFR (MDRD) Non-Af 90 BUN/Creatinine Ratio 8.7 L Glucose 80 Calcium 8.0 L Total Bilirubin 0.70 AST 22 ALT 26 Alkaline Phosphatase 122 H Total Protein 6.3 L Albumin 3.4 Globulin 2.9 Albumin/Globulin Ratio 1.2 Urine Color Yellow Urine Clarity Clear Urine pH 8.0 Ur Specific [place] 1.010 Urine Protein Negative Urine Glucose (UA) Normal Urine Ketones Negative Urine Occult Blood Negative Urine Nitrite Negative Urine Bilirubin Negative Urine Urobilinogen Normal Ur Leukocyte Esterase Negative Urine RBC 0 SEEN Urine WBC 0 SEEN Ur Squamous Epith Cells 0 SEEN Urine Bacteria 0 SEEN Urine Mucus 0 SEEN Assessment/Plan All Active Problems Suicide attempt (Acute) Hyponatremia (Acute) Hyponatremia. labs from april with normal sodium. she was in an inpatient psych facility until 2 weeks ago, apparently did not have any sodium issues then also as per . most likely hyponatremia is from polydipsia. she did receive some saline. since the sodium likely went down within last 24 hours, it should be ok even if it comes up to normal. recommend fluid restriction of 1.5 l a day follow up labs can be done at psych facility she is asymptomatic from hyponatremia so I dont have an issue with her going to inpatient psych facility
[2018-06-27 17:25] LABS: Anion Gap 10 (5-15); BUN 5 mg/dL (7-18); BUN/Creat Ratio 8.2 RATIO (10-20); Chloride 94 mmol/L (98-107); Creatinine, Serum 0.61 mg/dL (0.55-1.02); EST Glomerular Filtration Rate 103 mL/min (>60); Est Glom Filt Rate - Afr Amer 124 mL/min (>60); Glucose 85 mg/dL (74-106); Potassium 3.2 mmol/L (3.5-5.1); Sodium Level 131 mmol/L (136-145)
[2018-06-27 19:26] VITALS: BP 108/56; PULSE 84; RESP 16; O2SAT 96
== END 2018-06-27 19:34 ==
PROVIDERS: Emergency Medicine; Emergency Provider Emergency Medicine
DX: F20.9 Schizophrenia, unspecified (principal); E87.1 Hypo-osmolality and hyponatremia; Z91.14 Patient's other noncompliance with medication regimen
CPT/HCPCS: 36415; 80048; 80053; 81001; 85025; 96360; 96361; 96372; 99285; J7040

== ENCOUNTER 2024-02-19 09:30 | Inpatient (IN) | payer MEDICARE, SELFPAY ==
[2024-02-19] VITALS (35 sets, daily range): BP systolic 64–198; BP diastolic 10–178; PULSE 88–105; RESP 14–28; TEMP 35.4–36.9; O2SAT 87–98; BMI 30.1; BMI 29.7
--- NOTE | 2024-02-19 09:33 | EKG12_ITS ---
Test Reason : Blood Pressure : / mmHG Vent. Rate : 102 BPM Atrial Rate : 102 BPM P-R Int : 140 ms QRS Dur : 076 ms QT Int : 352 ms P-R-T Axes : 056 050 059 degrees QTc Int : 458 ms Sinus tachycardia Otherwise normal ECG Confirmed by PEG MOSS, ANNA ([id number]), movie editor GABBY NUÑEZ ([id number]) on 02/20/2024 9:44:09 AM Referred By: Precious Aleman Confirmed By:ANNA RUVALCABA MD
[2024-02-19] MEDS: 0.9% Normal Saline (1000mL) 1,000 ML 1000 ML IV (09:38)
[2024-02-19 09:56] LABS: Absolute Lymphocyte Count 0.39 X10^3/uL (0.83-4.51); Absolute Neutrophil Count 8.3 X10^3/uL (2.0-7.7); Basophil# 0.02 X10^3/uL; Basophil% 0.2 % (0-1); Hematocrit 41.5 % (37-47); Hemoglobin 13.4 g/dL (12.0-15.0); Lymphocyte # 0.39 X10^3/ul (0.83-4.51); Lymphocyte % 4.2 % (19-41); Mean Corp Hgb Conc 32.3 g/dL (32-36); Mean Corpuscular Hgb 29.8 pg (27.0-32.0); Mean Corpuscular Volume 92.4 fL (81-99); Mean Platelet Vol. 9.2 fl (6.2-12.0); Monocyte# 0.53 X10^3/uL; Monocyte% 5.7 % (0-10); NRBC Flagged by Analyzer 0 % (0-5); Neutrophil # 8.26 X10^3/uL (2.7-7.7); Neutrophil % 89.4 % (47-70); POSITIVE DIFFERENTIAL YES; Platelet Count 179 K/mm3 (150-450); RBC Distribution Width CV 13.2 % (11.6-14.6); RBC Distribution Width SD 44.8 fl (35.1-43.9); Red Blood Count 4.49 M/mm3 (4.2-5.4); White Blood Count 9.3 K/mm3 (4.4-11.0)
--- NOTE | 2024-02-19 10:00 | RAD_ITS ---
STUDY: X-RAY - ABDOMEN/PELVIS REASON FOR EXAM: Female, 78 years old. NG tube placement. TECHNIQUE: COMPARISON: None. FINDINGS: NG tube present with tip projected over the left upper quadrant. Mild gaseous distention of bowel. No free air identified. Cholecystectomy clips. Normal visualized osseous structures. RAD/Abdomen Single View (Portable) IMPRESSION: NG tube tip projected over the left upper quadrant of the abdomen. Electronically Signed: Aidan Shore MD at 10:44 EDT ,
--- NOTE | 2024-02-19 10:02 | EDS_ITS ---
HPI History of Present Illness Chief Complaint: GI Bleed Detail of Chief Complaint: Vomiting coffee-ground emesis, hypotension, altered mental status Informant: patient and EMS Onset/Context/Timing Onset: Today Context: Sudden Onset Timing: - (Uncertain) Quality: Coffee-ground emesis and dark stool Location: GI Current Severity: Moderate Maximum Severity: Moderate Worsened by: Unknown Relieved by: Nothing Associated Symptoms Associated Symptoms: Unable to determine Narrative Narrative: Patient is not a good informant. She has a psychiatric history. She is on psychiatric meds. She does know her name. She does know the month. She is uncertain when this started. Patient has not been taking any anti- inflammatories. She is not on any anticoagulant or antithrombotic. She denies chest pain or shortness of breath. She denies abdominal pain. Prior similar symptoms: No Recent Illness/Hospitalization: No PFSH PFSH Medical History unable to obtain unable to obtain Home Medications ?Medication ?Instructions ?Recorded ?Last Taken ?Type lorazepam 0.5 mg tablet 0.5 mg PO TID 05/20/18 05/19/18 22:00 History 0.5mg clozapine 100 mg tablet 100 mg PO BID 02/19/24 Unknown History Allergy/AdvReac Type Severity Reaction Status Date / Time Sulfa (Sulfonamide AdvReac Itching Verified 02/19/24 09:31 Antibiotics) Social History (Updated 02/19/24 @ 10:[address] Dev Mckeon MD) household members: spouse Smoking Status: Never smoker EXAM Physical Exam Const Vital Signs: 02/19/24 09:30 02/19/24 09:30 02/19/24 11:00 Temperature 96.9 F L 97.3 F L Temperature Source Temporal Oral Pulse Rate 104 H 105 H 90 Respiratory Rate 14 14 25 H Blood Pressure 142/113 H 158/10 H 64/40 L Blood Pressure Mean 122 59 48 Pulse Ox 87 87 94 Oxygen Delivery Method Nasal Cannula Nasal Cannula Nasal Cannula Oxygen Flow Rate (L/min) 4 4 02/19/24 11:12 02/19/24 11:13 02/19/24 11:14 Temperature 97.3 F L 97.2 F L Temperature Source Temporal Pulse Rate 89 90 89 Respiratory Rate 22 H 26 H 20 H Blood Pressure 85/55 L 85/55 L 85/55 L Blood Pressure Mean 65 65 65 Pulse Ox 97 97 96 Oxygen Delivery Method Nasal Cannula Nasal Cannula Oxygen Flow Rate (L/min) 4 2 Pulse ox as noted below. Suspect this is erroneous since patient was cold. When she was warmed up pulse ox is 9495% on room air. Positive well nourished, well developed and obese Constitutional Narrative: Patient appears pale. She is covered with coffee-ground emesis. General Appearance ED: well developed and pallor; Negative for cyanotic, diaphoretic or NAD Nutritional Appearance: obese HEENT Reports moist mucous membranes HEENT Narrative: Normocephalic atraumatic. Nares patent. Ears normal. What appears to be coffee-ground material in her mouth and posterior pharynx. Eyes PERRL and EOMs intact bilaterally General Eye ED: Yes pale conjunctiva; Negative for scleral icterus Neck no lymphadenopathy, supple and no JVD Chest Wall inspection of chest normal and palpation of chest normal Resp normal respiratory effort and clear to auscultation bilaterally Cardio regular rhythm, S1 normal heart sound, S2 normal heart sound and no murmurs Rate: tachycardic GI normal to inspection, nondistended, normoactive bowel sounds, non-tender and hepatosplenomegaly; Negative for non-distended Auscultation: hyperactive bowel sounds Back/Spine no CVA tenderness Extremity normal to inspection General Extremety ED: Negative for edema or tenderness General Extremity: Negative for edema Neuro oriented x3 and CN's II-XII intact bilaterally Neuro Narrative: Awake but not alert. Sensorium / Orientation: Negative for alert Psych Psych Narrative: Mood is depressed affect is flat. Skin no rashes or lesions noted, no wounds and No skin turgor normal General Skin Exam: pallor; Negative for jaundice MDM MDM MDM Narrative Medical decision making narrative: Patient was reported to be hypotensive. She received fluid bolus. She is no longer hypotensive. She does appear pale. She does have coffee-ground bloody emesis noted. Since this covered her entire body a rectal was not done since there is bloody emesis over her entire perineal region. Patient was typed and screened and 2 units of blood were typed and crossed to be held. Patient did respond to the fluid bolus. She is tachycardic. Since patient has dark red blood noted in NG will contact Dr. Bettencourt. She also received IV Protonix. There is no history of varices that I was able to obtain from reviewing records. History & Record Review Additional record(s) reviewed:: Prior outpatient record, Prior ED visit and Prior labs Lab Data Attestation: I reviewed the patient's lab results. Lab results narrative: There is a history of hyponatremia and schizophrenia. She has had multiple ER visits for her schizophrenia. CBC is unremarkable with an H&H of 13 4 and 41.5. Platelet count is normal at 179,000. Labs: Laboratory Results - last 24 hr 02/19/24 02/19/24 02/19/24 09:45 10:14 10:45 WBC 9.3 RBC 4.49 Hgb 13.4 Hct 41.5 MCV 92.4 MCH 29.8 MCHC 32.3 RDW Std Deviation 44.8 H RDW Coeff of Andrews 13.2 Plt Count 179 MPV 9.2 Immature Gran % (Auto) 0.500 Neut % (Auto) 89.4 H Lymph % (Auto) 4.2 L [place] % (Auto) 5.7 Eos % (Auto) 0.0 Baso % (Auto) 0.2 Absolute Neuts (auto) 8.3 H Absolute Lymphs (auto) 0.39 L Nucleated RBC % 0 PT 15.1 H INR 1.2 APTT 26.3 Sodium 146 H Potassium 3.5 Chloride 113 H Carbon Dioxide 23.0 Anion Gap 11 BUN 18 Creatinine 1.77 H Estim Creat Clear Calc 27.60 Est GFR (MDRD) Af Amer 36 L Est GFR (MDRD) Non-Af 30 L BUN/Creatinine Ratio 10.2 Glucose 68 L Calcium 9.1 Total Bilirubin 1.60 H AST 3106 H ALT 1436 H Alkaline Phosphatase 298 H Ammonia 35.0 H Total Protein 6.0 L Albumin 2.9 L Globulin 3.1 Albumin/Globulin Ratio 0.9 Urine Color Red Urine Clarity Clear Urine pH 6.0 Ur Specific [place] 1.020 Urine Protein 30 H Urine Glucose (UA) Normal Urine Ketones 5 H Urine Occult Blood 10 H Urine Nitrite Positive H Urine Bilirubin 1 H Urine Urobilinogen 1 H Ur Leukocyte Esterase 25 H Urine RBC 0-5 SEEN Urine WBC 0-5 SEEN Ur Squamous Epith Cells 0 SEEN Urine Bacteria 0 SEEN Urine Mucus 0 SEEN Blood Type B POSITIVE Antibody Screen NEGATIVE Crossmatch See Detail Coags are normal. Because urine appears to be bloody UA was ordered. Also will order hepatic profile if a comprehensive metabolic panel was not ordered initially. Comprehensive metabolic panel is remarkable for elevated creatinine that is 2-3 times baseline at 1.77. Estimated GFR 30. CO2 and anion gap are normal. Sodium is elevated 146. Total bili is 1.6. AST is 3106. ALT is 1436. Alkaline phosphatase is 298. With her altered mental status will obtain an ammonia level. Also will repaged Dr. Bettencourt to make him aware of this. Radiography Chest X-Ray - ED: 1 View (First portable film interpreted by me at 1004 reveals no evidence of infiltrate, pneumothorax. Cardiac silhouette size normal. Mediastinum normal. Structures unremarkable. The NG is curled up in the esophagus. Nurses been informed and will reinsert. Of note patient has dark blood noted in the ) and Read by ED Physician (Repeat x-ray, second, reveals NG to be in proper position. There is no acute findings.) Diagnostic Testing: Clinical Impression(s) from Imaging Studies KUB X-Ray 02/19/24 10:00 IMPRESSION: NG tube tip projected over the left upper quadrant of the abdomen. Electronically Signed: Aidan Shore MD at 10:44 EDT , EKG Initial EKG: Attestation: I personally reviewed and interpreted this EKG as follows: Interpretation: Sinus Tachycardia (Rate is 102. Other than sinus tachycardia the EKG is normal. AK interval is 140 ms. Cures duration 76 ms. QT duration 352 ms. [place] is normal.) Management Discussion w/another healthcare provider: Hospitalist (Dr. Mane will be the hospitalist for admission.) and Employee Communications Coordinator (Dr. Bettencourt's GI) Treatment and Re-Evaluation :: Nurse informing at approximately 1044 the patient's blood pressure is 65 systolic. Additional liter of normal saline was ordered. Dr. Bettencourt was repaged. Suspect her elevated blood pressure was a false reading because she was shaking and could not remain still. Now that she is no longer shaking her blood pressure is low and corresponds with blood pressure reading that EMS documented. Comments:: Spoke with Dr. Bettencourt at 1059. He was made aware of patient's blood pressure. Plan is OR for endoscopy within the next 20 to 30 minutes. Suggested whether patient should be given octreotide. He states taking administer. This was ordered. The hospitalist was paged. Plan is admission to ICU. Critical Care Time Critical Care Time: Yes Critical care time (excluding procedures): 30-74 minutes (31), Including time spent: (History, physical, documentation, independent rotation of laboratory results, therapy for hypotension due to GI bleed,), Discussing w/Patient &/or Family/Ring Barker Operator, Discussing w/Consultants and Arranging Admission or Transfer Discharge Plan Dx/Rx/DC Orders Clinical Impression: Acute hypotension, Acute upper gastrointestinal bleeding, Sinus tachycardia seen on radiographer cardiac catheterization, Hx of schizophrenia, Elevated liver enzymes, Elevated bilirubin, Acute hypernatremia, Acute kidney injury Disposition Disposition: Acute Care Hospital [facility]
[2024-02-19 10:08] LABS: International Normalized Ratio 1.2; Partial Thromboplast Time 26.3 Seconds (24.1-36.2); Prothrombin Time (Protime)PT. 15.1 SECONDS (11.7-14.9)
[2024-02-19] MEDS: Oxymetazoline 0.05% 1 SPRAY SPRAY.BTL 2 SPRAY NASAL (10:08)
[2024-02-19 10:26] LABS: ALB/GLOB Ratio 0.9 RATIO (0.9-2.4); AST(SGOT) 3106 U/L (15-37); Alanine Aminotransfer ALT/SGPT 1436 U/L (13-56); Albumin, Serum 2.9 g/dL (3.2-5.0); Alkaline Phosphatase 298 U/L (45-117); Anion Gap 11 (5-15); BUN 18 mg/dL (7-18); BUN/Creat Ratio 10.2 RATIO (10-20); Calcium,Total 9.1 mg/dL (8.5-10.1); Chloride 113 mmol/L (98-107); Creatinine, Serum 1.77 mg/dL (0.55-1.02); EST Glomerular Filtration Rate 30 mL/min (>60); Est Glom Filt Rate - Afr Amer 36 mL/min (>60); Globulin 3.1 g/dL (2.2-4.2); Glucose 68 mg/dL (74-106); Potassium 3.5 mmol/L (3.5-5.1); Sodium Level 146 mmol/L (136-145)
[2024-02-19 10:30] LABS: Bacteria 0 SEEN /hpf (None Seen); Mucous, Urine 0 SEEN /hpf (<or=2+); Squamous Epithelial Cells - UA 0 SEEN /hpf (5-10)
[2024-02-19 10:32] LABS: Color, Urine Red (Yellow); Glucose, Dipstick Normal (Normal); Ketone-Dipstick 5 mg/dl (Negative); Leukocyte Esterase-Dipstick 25 /ul (Negative); Nitrite-Dipstick Positive (Negative); Occult Blood-Urine 10 /ul (Negative); Protein-Dipstick 30 mg/dl (Negative); Urine Clarity Clear (Clear); Urine Urobilinogen 1 mg/dl (Normal)
[2024-02-19 10:41] LABS: Urine Bilirubin Dipstick 1 mg/dL (Negative)
[2024-02-19 10:45] LABS: Red Blood Cells-Urine 0-5 SEEN /hpf (0-5); White Blood Cells 0-5 SEEN /hpf (0-5)
[2024-02-19] MEDS: Pantoprazole Sodium 80 MG in 0.9% Normal Saline (100mL Bag) 80 ML 10 MG CONT INF ×2 (10:51→21:02)
[2024-02-19] MEDS: 0.9% Normal Saline (1000mL) 1,000 ML 999 ML IV ×2 (10:56→15:00)
[2024-02-19] MEDS: Pantoprazole Sodium 80 MG in 0.9% Normal Saline (50mL Bag) 15 ML 420 MG IV BOLUS (10:57)
[2024-02-19] MEDS: Octreotide 0.1 MG/ML ML 0.05 MG IV (11:08)
--- NOTE | 2024-02-19 11:33 | PCM.HP.STD ---
[facility] - General General Date of Admission: 02/19/24 Date of Service: 02/19/24 Chief Complaint: hematemesis HPI Narrative DINO DELGADO, is a 78 F with a past medical history as outlined was admitted through the ED on 02/19/2024 with a complaint of hematemesis. History was mainly gotten from . According to patient's she woke up in the early hours of this morning with complaints of heartburn. She tried throwing up a few times and her states she had some dark coffee-ground substance coming out. She also subsequently developed diarrhea later in the day. Diarrhea was nonbloody. He said patient felt weak and tired and started having multiple episodes of hematemesis. She admitted to feeling lightheaded and dizzy. She did not take any byeh-cxo-vyebazi pain meds or any blood thinners and was also not on aspirin. She had no history of liver disease. She did have bipolar and schizophrenia and was on clonazepam and lorazepam which she had been taking. Review of systems was otherwise negative. She had never had any history of GI bleed previously. On arrival in the ED, patient was markedly hypotensive with blood pressure down at 66/47. She was on 4 L of oxygen temperature was 95.8 Fahrenheit with pulse rate of 88 respirate rate of 16. Her blood pressure still remained low in the 90s systolic and so she was taken emergently to the endoscopy suite by gastroenterology and she had an urgent EGD which showed a Phyllis-Coy tear which was injected and treated with heater probe and clips were placed. She had a small hiatal hernia and stomach was normal as well as normal second portion of the duodenum. Patient however remained hypotensive and was not responding to fluids so she was emergently admitted to the ICU and critical care was consulted. Patient was seen in the ICU after she had a EGD. She had been started on Levophed and was up to 10 mcg/min. Her 3 sons and [id number] as well as her were by her bedside. She was very weak and lethargic though she could answer questions. She had no active complaints. [facility] Medical History (Updated 02/19/24 @ 14:46 by Arslan Ramos RN) Schizophrenia Medical History unable to obtain Home Medications ?Medication ?Instructions ?Recorded ?Last Taken ?Type lorazepam 0.5 mg tablet 0.5 mg PO DAILY 05/20/18 02/18/24 History clozapine 100 mg tablet 100 mg PO BID 02/19/24 02/18/24 History Allergy/AdvReac Type Severity Reaction Status Date / Time Sulfa (Sulfonamide AdvReac Itching Verified 02/19/24 09:31 Antibiotics) Surgical History (Updated 02/19/24 @ 14:46 by Arslan Ramos RN) History of cholecystectomy History of cholecystectomy Social History (Updated 02/19/24 @ 10:[address] Dev Mckeon MD) household members: spouse Smoking Status: Never smoker ROS Review of Systems ROS Unobtainable: due to encephalopathy Vital Signs Vital Signs Vital Signs: 02/19/24 09:30 02/19/24 09:30 02/19/24 11:00 Temperature 96.9 F L 97.3 F L Temperature Source Temporal Oral Pulse Rate 104 H 105 H 90 Respiratory Rate 14 14 25 H Blood Pressure 142/113 H 158/10 H 64/40 L Blood Pressure Mean 122 59 48 Pulse Ox 87 87 94 Oxygen Delivery Method Nasal Cannula Nasal Cannula Nasal Cannula Oxygen Flow Rate (L/min) 4 4 02/19/24 11:12 02/19/24 11:13 02/19/24 11:14 Temperature 97.3 F L 97.2 F L Temperature Source Temporal Pulse Rate 89 90 89 Respiratory Rate 22 H 26 H 20 H Blood Pressure 85/55 L 85/55 L 85/55 L Blood Pressure Mean 65 65 65 Pulse Ox 97 97 96 Oxygen Delivery Method Nasal Cannula Nasal Cannula Oxygen Flow Rate (L/min) 4 2 Weight Weight: 175 lb 7.807 oz Body Mass Index (BMI) 30.1 Physical Exam Const alert Constitutional Narrative: Patient very weak and frail. Shivering in bed with multiple sheets over her. Orientation / Consciousness: disoriented and lethargic HEENT normocephalic and head/scalp atraumatic Mouth: oral and palatal mucosa normal Eyes PERRL, EOMs intact bilaterally and conjunctivae normal Neck no lymphadenopathy and supple Resp normal respiratory effort, no retractions, no use of accessory muscles and clear to auscultation bilaterally Cardio regular rate, regular rhythm, S1 normal heart sound, S2 normal heart sound and no murmurs GI normal to inspection, nondistended, normoactive bowel sounds, soft to palpation, non-tender and non-distended Extremity normal to inspection, full ROM and no clubbing, cyanosis or edema Skin Skin Narrative: Patient looks very pale Neuro Neuro Narrative: Patient confused and lethargic. Psych Psych Narrative: flat affect, lethargic Results Lab / Micro Data 02/20/24 02:40 02/20/24 02:40 Labs: Laboratory Results - last 24 hr 02/19/24 09:45: WBC 9.3, RBC 4.49, Hgb 13.4, Hct 41.5, MCV 92.4, MCH 29.8, MCHC 32.3, RDW Std Deviation 44.8 H, RDW Coeff of Andrews 13.2, Plt Count 179, MPV 9.2, Immature Gran % (Auto) 0.500, Neut % (Auto) 89.4 H, Lymph % (Auto) 4.2 L, [place] % (Auto) 5.7, Eos % (Auto) 0.0, Baso % (Auto) 0.2, Absolute Neuts (auto) 8.3 H, Absolute Lymphs (auto) 0.39 L, Nucleated RBC % 0, PT 15.1 H, INR 1.2, APTT 26.3, Sodium 146 H, Potassium 3.5, Chloride 113 H, Carbon Dioxide 23.0, Anion Gap 11, BUN 18, Creatinine 1.77 H, Estim Creat Clear Calc 27.60, Est GFR (MDRD) Af Amer 36 L, Est GFR (MDRD) Non-Af 30 L, BUN/Creatinine Ratio 10.2, Glucose 68 L, Calcium 9.1, Total Bilirubin 1.60 H, AST 3106 H, ALT 1436 H, Alkaline Phosphatase 298 H, Total Protein 6.0 L, Albumin 2.9 L, Globulin 3.1, Albumin/Globulin Ratio 0.9, Blood Type B POSITIVE, Antibody Screen NEGATIVE, Crossmatch See Detail 02/19/24 10:14: Urine Color Red, Urine Clarity Clear, Urine pH 6.0, Ur Specific [place] 1.020, Urine Protein 30 H, Urine Glucose (UA) Normal, Urine Ketones 5 H, Urine Occult Blood 10 H, Urine Nitrite Positive H, Urine Bilirubin 1 H, Urine Urobilinogen 1 H, Ur Leukocyte Esterase 25 H, Urine RBC 0-5 SEEN, Urine WBC 0-5 SEEN, Ur Squamous Epith Cells 0 SEEN, Urine Bacteria 0 SEEN, Urine Mucus 0 SEEN 02/19/24 10:20: Lactic Acid 6.0 H* 02/19/24 10:45: Ammonia 35.0 H Imaging Radiology Impression KUB X-Ray 02/19/24 10:00 IMPRESSION: NG tube tip projected over the left upper quadrant of the abdomen. Electronically Signed: Aidan Shore MD at 10:44 EDT Reading Location ID and State: [facility] / [place] , Service support , Assessment & Plan Assessment/Plan (1) Acute upper gastrointestinal bleeding: (2) Acute hypotension: (3) Acute kidney injury: (4) Acute hypernatremia: PLAN: Plan #Shock, likely hemorrhagic, due to GI bleed Patient admitted to ICU after she had the EGD. She was admitted with a complaint of hematemesis and found to be in shock with blood pressure 66/47. She did not respond to IV fluids. She had emergent EGD which showed a Phyllis-Coy tear which was clipped and treated with a heater probe. Hemoglobin was 13.4 on admission and repeat was down to 11.6. WBC is 9.3 and platelets of 179. Lactic acid was elevated at 6 and is now down to 5.7. Total bilirubin is 1.6 and AST as well as ALT are elevated. Creatinine is also elevated at 1.77. Patient currently on Levophed. Critical care on board. Titrate Levophed to maintain MAP of more than 65 Patient and family are refusing blood transfusions and upon extensive counseling, patient is now agreeable to receive blood from a family member. Her sons are willing to donate. Blood bank is to be contacted to see what the procedure is for donating blood from family members for patient if she needs it. Trend CBC to monitor hemoglobin levels I do think it is reasonable to initiate broad-spectrum antibiotics just in case she also has an infectious component to the shock. Blood cultures and urine cultures obtained. #Acute blood loss anemia Likely due to upper GI bleed. Hemoglobin is down to 11. Patient and family do not want transfusion. The energy over his witnesses but said they have their own unique believes that preclude them from getting transfusion. After extensive counseling and her son offering to donate blood, patient was willing to accept blood if it is donated from a family member. I explained to patient and family that the process for getting blood from a family member if it is needed might take quite a while as the blood will need to be processed. said they would only 1 blood if it meant without her getting blood she will . I explained to them that this was a difficult position because if she was going to without the blood and she would need the blood emergently and in that case we may not have enough time to get the blood transfusion from a family member which was the only blood she was willing to take. Patient and family expressed understanding of this. #Lactic acidoses: Lactic acid was elevated but this is to be expected in light of the shock. Blood and urine cultures were ordered to rule out any evidence of infection. Trend lactic acid #DAGOBERTO: Creatinine is 1.77 due to shock most likely. Should improve as shock resolves. Trend creatinine and if it worsens consult nephrology and get urine electrolytes and renal ultrasound. #Ischemic hepatitis Likely due to shock liver from hypotension and anemia. AST and ALT elevated as well as total bilirubin. This should improve as shock resolves. Will monitor. #Schizophrenia and bipolar disorder: Hold her current medications as she is NPO. DVT prophylaxis: SCDs. No anticoagulation due to GI bleed. CODE STATUS: Full code Patient and family members counseled extensively about differences. Full code, DNR CC and DNR CCA. Patient was initially alert but she still is lethargic and is not clear whether she really understood what I was asking her. who is her POA therefore decided that he wanted her to be full code. Family was in agreement. Patient made full code. Total face to face time 20 mins. Charges/Coding Visit Charges Inpatient E&M: 10937 Init Hosp L3 Procedures Hospitalists Procedures: 13102 Advncd Care Plan 30 Min
[2024-02-19] MEDS: Lactated Ringers 1,000 ML 15 ML IV (11:40)
--- NOTE | 2024-02-19 11:50 | NURSING ---
pt down to pacu pre op from the er anesthesia saw pt and family dr friend saw pt and family pt wants to be full code
--- NOTE | 2024-02-19 11:52 | CON.PCM.GI_ITS ---
HPI Consult Data Date of Consult: 02/19/24 HPI Narrative Reason for Consultation: Upper GI bleed HPI Narrative: DINO DELGADO, is a 78 F who presents from home with hematemesis. Patient is not a good informant. Therefore all of her history is from her who is at the bedside. Apparently she woke up about 3:00 this morning with worsening heartburn. She not take any medicines. Later in the morning she developed worsening diarrhea. He said that the diarrhea was nonbloody. Approximately 3 hours ago she started having multiple episodes of hematemesis. She did admit to retching. She denied any coughing. She does not take any axsh-tzn-opfshty pain medicines or prescription blood thinners. She does take a baby aspirin every now and then. She does not take any medicines for reflux on a daily basis on 1 occasion. She has no history of bleeding disorder. She has no history of cirrhosis or chronic liver disease. She has a psychiatric history consistent with bipolar and schizophrenia. She is on clonazepam 100 mg p.o. twice daily and lorazepam 0.5 mg daily.. She has a lactic acid of 6. Her hemoglobin is 13 with a hematocrit of 40. Her platelet count is 171. Her BUN/creatinine ratio is 17 and 1.7. She has been hypotensive to the 80s. Her current MAP is 50. She has gotten 2 L of normal saline wide open. On her repeat labs she had a significant increase in her LFTs and liver enzymes. Her bilirubin is 1.6, AST of 3400 and ALT of 2500, INR is 1.3 [facility] Medical History unable to obtain Home Medications ?Medication ?Instructions ?Recorded ?Last Taken ?Type lorazepam 0.5 mg tablet 0.5 mg PO DAILY 05/20/18 02/18/24 History clozapine 100 mg tablet 100 mg PO BID 02/19/24 02/18/24 History Allergy/AdvReac Type Severity Reaction Status Date / Time Sulfa (Sulfonamide AdvReac Itching Verified 02/19/24 09:31 Antibiotics) Social History (Updated 02/19/24 @ 10:[address] Dev Mckeon MD) household members: spouse Smoking Status: Never smoker ROS Review of Systems ROS Unobtainable: other Constitutional Constitutional: Denies fatigue, fever(s), poor appetite, weight gain or weight loss ENT HEENT: Denies mouth lesions Cardiovascular Cardiovascular: Denies abdominal bloating, abdominal edema or abdominal pain Respiratory/Chest Respiratory/Chest: Denies change in mental status, change in phlegm color, chest congestion or chest tightness Gastrointestinal Gastrointestinal: Denies belching, bloating, change in bowel habits, change in stool character, chewing difficulty, coffee ground emesis, constipation, cramping, diarrhea, dyspepsia, dysphagia, early satiety, excessive flatus, fecal incontinence, heartburn, hematemesis, hematochezia, hemorrhoids, loose stools, melena, nausea, odynophagia, rectal bleeding, tenesmus, vomiting or weight changes Genitourinary Genitourinary: Denies abdominal discomfort, burning urination or itching Musculoskeletal Musculoskeletal: Reports as per HPI; Denies muscle weakness or myalgias Integumentary Integumentary: Denies jaundice Neurologic Neurologic: Denies lack of coordination or weakness Psychiatric Psychiatric: Denies confusion, depression, memory loss, mood swings, paranoia or suicidal ideation Endocrine Endocrinology: Denies systems reviewed and no addt'l complaints, except as documented Hematologic/Lymphatic Hematologic/Lymphatic: Denies anemia, easy bleeding, easy bruising or lymphadenopathy Allergic/Immunologic Allergic/Immunologic: Denies systems reviewed and no addt'l complaints, except as documented Physical Exam Const alert General Appearance: cooperative Orientation / Consciousness: oriented to person HEENT hearing grossly normal bilaterally Head and Scalp: normal to inspection Face and Sinus: face symmetric Nose: external nose normal Mouth: oral and palatal mucosa normal Eyes conjunctivae normal General Eye: normal appearance of both eyes Neck full ROM General: normal visual inspection Lymph Lymphatic: no lymphadenopathy noted Chest inspection of chest normal and palpation of chest normal Chest: symmetrical chest wall rise Resp normal respiratory effort Effort and Inspection: able to speak in complete sentences Cardio regular rate GI non-distended Percussion: normal to percussion Rectal Exam: deferred Neuro Speech: speech normal Gait (Neuro): normal gait Lab / Micro Data 02/19/24 09:45 02/19/24 09:45 Labs: Laboratory Results - last 24 hr 02/19/24 09:45: WBC 9.3, RBC 4.49, Hgb 13.4, Hct 41.5, MCV 92.4, MCH 29.8, MCHC 32.3, RDW Std Deviation 44.8 H, RDW Coeff of Andrews 13.2, Plt Count 179, MPV 9.2, Immature Gran % (Auto) 0.500, Neut % (Auto) 89.4 H, Lymph % (Auto) 4.2 L, Ballard % (Auto) 5.7, Eos % (Auto) 0.0, Baso % (Auto) 0.2, Absolute Neuts (auto) 8.3 H, A bsolute Lymphs (auto) 0.39 L, Nucleated RBC % 0, PT 15.1 H, INR 1.2, APTT 26.3, Sodium 146 H, Potassium 3.5, Chloride 113 H, Carbon Dioxide 23.0, Anion Gap 11, BUN 18, Creatinine 1.77 H, Estim Creat Clear Calc 27.60, Est GFR (MDRD) Af Amer 36 L, Est GFR (MDRD) Non-Af 30 L, BUN/Creatinine Ratio 10.2, Glucose 68 L, Calcium 9.1, Total Bilirubin 1.60 H, AST 3106 H, ALT 1436 H, Alkaline Phosphatase 298 H, Total Protein 6.0 L, Albumin 2.9 L, Globulin 3.1, Albumin/Globulin Ratio 0.9, Blood Type B POSITIVE, Antibody Screen NEGATIVE, Crossmatch See Detail 02/19/24 10:14: Urine Color Red, Urine Clarity Clear, Urine pH 6.0, Ur Specific Ayer 1.020, Urine Protein 30 H, Urine Glucose (UA) Normal, Urine Ketones 5 H, Urine Occult Blood 10 H, Urine Nitrite Positive H, Urine Bilirubin 1 H, Urine Urobilinogen 1 H, Ur Leukocyte Esterase 25 H, Urine RBC 0-5 SEEN, Urine WBC 0-5 SEEN, Ur Squamous Epith Cells 0 SEEN, Urine Bacteria 0 SEEN, Urine Mucus 0 SEEN 02/19/24 10:20: Lactic Acid 6.0 H* 02/19/24 10:45: Ammonia 35.0 H Imaging Radiology Impression KUB X-Ray 02/19/24 10:00 IMPRESSION: NG tube tip projected over the left upper quadrant of the abdomen. Electronically Signed: Aidan Shore MD at 10:44 EDT Reading Location ID and State: [address] [place] [address] , Service support , Assessment & Plan Assessment/Plan (1) Elevated bilirubin: (2) Elevated liver enzymes: (3) Acute kidney injury: (4) Acute hypotension: (5) Acute upper gastrointestinal bleeding: PLAN: Plan 78-year-old with upper GI bleed Acute blood loss anemia-likely secondary to upper GI bleed. Her hemoglobin fortunately is 13. I suspect that we will drop serendipitously. Recommend type and cross for 2 units of packed red blood cells to have on standby. She already received PPI and I recommended that she get dose of octreotide. No history of cirrhosis am not recommending antibiotic therapy at this time. She will need imaging particularly of her liver with ultrasound and CT scan likely with IV contrast once her creatinine improves. I suspect this is just acute prerenal azotemia versus ATN secondary to acute blood loss anemia. She will undergo an upper endoscopy to evaluate upper GI tract. Her , patient and her son were explained alternatives, risk, benefits include not withstanding bleeding, infection, sepsis, perforation, need for return to . She will have an ASA of 3. Charges/Coding Visit Charges Inpatient E&M: 47914 Init Hosp L3
[2024-02-19] MEDS: 0.9% Normal Saline (Pres. free 10 ML Vial (12:40)
[2024-02-19] MEDS: Epinephrine (1 mg/ml) 1 MG/ML VIAL (12:41)
--- NOTE | 2024-02-19 12:41 | EX.PCM.CONCC ---
Assessment & Plan Assessment/Plan (1) Acute hypotension: PLAN: Plan RECOMMENDATIONS: 1. Transfuse blood products as ordered. Check H&H posttransfusion. 2. Follow-up lactate level. 3. Obtain and send cultures as ordered. 4. Start empiric antimicrobials. 5. Supplemental IV fluid hydration. IMPRESSIONS: 1. Acute blood loss anemia The patient presented to the hospital with concern for an upper GI bleed with associated hypotension. She was taken urgently to endoscopy, where a Phyllis-Coy tear was identified. Endoscopic intervention was performed. The patient's blood pressures appear to have stabilized following supplemental IV fluid hydration. I would recommend that we proceed with administering the blood products which were ordered earlier today. In the interim, continue PPI therapy. Check H&H posttransfusion. 2. Lactic acidemia Clinical concern for hypotension in the setting of blood loss anemia. However, we will also plan to collect blood and urine cultures. The patient does have evidence of acute kidney injury, likely secondary to her presenting hypotension. Empiric antibiotics will be initiated for the next 24 to 48 hours. Recommend follow-up lactate level. 3. Acute kidney injury Most likely prerenal in etiology in the setting of #1. Continue gentle IV fluid hydration as ordered. Continue to monitor urine output. There is no current indication for renal replacement therapy. 4. Ischemic hepatitis Continue to monitor transaminase levels daily. Anticipate improvement with stabilization of hemodynamics. 5. History of bipolar disorder/schizophrenia Complicates care, management, recovery and prognosis. Hold home medications for now. Patient to remain NPO. This note was generated with [employer] dictation software. It may contain incorrect words, spelling, and punctuation that were not noted in checking the note before signing. HPI Consult Data Date of Consult: 02/19/24 HPI Narrative HPI Narrative: The patient is a 78-year-old female, with a history as outlined below, who presented to the emergency department on February 18 with altered mental status and coffee-ground emesis. The patient is not on any form of systemic anticoagulation. She did report a history of reflux, but is not currently on any PPI therapy. On presentation to the emergency department, the patient was documented to have a temperature of 96.9 ?F. She was mildly tachycardic and tachypneic but otherwise hemodynamically stable. Initial laboratory evaluation revealed a normal white blood cell count with a hemoglobin of 11.7 g/dL. Chemistry profile was notable for a sodium of 146, chloride of 113 and creatinine of 1.7. Lactate was elevated at 6.0. AST and ALT were increased to 3106 and 1436, respectively. Total bilirubin was increased to 1.6. Urine analysis was positive for nitrites and leukocyte esterase. The patient was taken by gastroenterology to undergo upper endoscopy. 2 L of fluid were administered. The patient was identified as having a Phyllis-Coy tear, which was injected and treated with a heater probe. Clips were deployed. Postprocedure, the patient was admitted to the medical intensive care unit. [facility] Medical History unable to obtain Home Medications ?Medication ?Instructions ?Recorded ?Last Taken ?Type lorazepam 0.5 mg tablet 0.5 mg PO DAILY 05/20/18 02/18/24 History clozapine 100 mg tablet 100 mg PO BID 02/19/24 02/18/24 History Allergy/AdvReac Type Severity Reaction Status Date / Time Sulfa (Sulfonamide AdvReac Itching Verified 02/19/24 09:31 Antibiotics) Social History (Updated 02/19/24 @ 10:[address] Dev Mckeon MD) household members: spouse Smoking Status: Never smoker ROS Review of Systems ROS Unobtainable: due to mental status Physical Exam Const Constitutional Narrative: The patient was evaluated in the PACU following her procedure. She is still somnolent. HEENT normocephalic and head/scalp atraumatic Eyes PERRL, EOMs intact bilaterally and conjunctivae normal Neck supple General: trachea midline Chest inspection of chest normal Resp normal respiratory effort Auscultation: Negative for rales, rhonchi or wheezes Cardio regular rate and regular rhythm GI normal to inspection, nondistended, normoactive bowel sounds Extremity no clubbing, cyanosis or edema Skin no rashes or lesions noted Neuro no focal motor deficits Psych Mood & Affect: flat affect Lab / Micro Data 02/19/24 09:45 02/19/24 09:45 Labs: Laboratory Results - last 24 hr 02/19/24 09:45: WBC 9.3, RBC 4.49, Hgb 13.4, Hct 41.5, MCV 92.4, MCH 29.8, MCHC 32.3, RDW Std Deviation 44.8 H, RDW Coeff of Andrews 13.2, Plt Count 179, MPV 9.2, Immature Gran % (Auto) 0.500, Neut % (Auto) 89.4 H, Lymph % (Auto) 4.2 L, Humphreys % (Auto) 5.7, Eos % (Auto) 0.0, Baso % (Auto) 0.2, Absolute Neuts (auto) 8.3 H, Absolute Lymphs (auto) 0.39 L, Nucleated RBC % 0, PT 15.1 H, INR 1.2, APTT 26.3, Sodium 146 H, Potassium 3.5, Chloride 113 H, Carbon Dioxide 23.0, Anion Gap 11, BUN 18, Creatinine 1.77 H, Estim Creat Clear Calc 27.60, Est GFR (MDRD) Af Amer 36 L, Est GFR (MDRD) Non-Af 30 L, BUN/Creatinine Ratio 10.2, Glucose 68 L, Calcium 9.1, Total Bilirubin 1.60 H, AST 3106 H, ALT 1436 H, Alkaline Phosphatase 298 H, Total Protein 6.0 L, Albumin 2.9 L, Globulin 3.1, Albumin/Globulin Ratio 0.9, Blood Type B POSITIVE, Antibody Screen NEGATIVE, Crossmatch See Detail 02/19/24 10:14: Urine Color Red, Urine Clarity Clear, Urine pH 6.0, Ur Specific [place] 1.020, Urine Protein 30 H, Urine Glucose (UA) Normal, Urine Ketones 5 H, Urine Occult Blood 10 H, Urine Nitrite Positive H, Urine Bilirubin 1 H, Urine Urobilinogen 1 H, Ur Leukocyte Esterase 25 H, Urine RBC 0-5 SEEN, Urine WBC 0-5 SEEN, Ur Squamous Epith Cells 0 SEEN, Urine Bacteria 0 SEEN, Urine Mucus 0 SEEN 02/19/24 10:20: Lactic Acid 6.0 H* 02/19/24 10:45: Ammonia 35.0 H Imaging Radiology Impression KUB X-Ray 02/19/24 10:00 IMPRESSION: NG tube tip projected over the left upper quadrant of the abdomen. Electronically Signed: Aidan Shore MD at 10:44 EDT , Charges/Coding Visit Charges Inpatient E&M: 90667 Init Hosp L3
--- NOTE | 2024-02-19 12:52 | OP.EGD_ITS ---
Patient Name: Amber Torres Procedure Date: 02/19/2024 11:31 AM Date of : 1945 Age: 78 Procedure: Upper GI endoscopy Indications: Hematemesis, Melena Providers: Berry Bettencourt DO Medicines: Monitored Anesthesia Care Patient Profile: This is a 78 year old female. Refer to note in patient chart for documentation of history and physical. Patient has symptoms of acute vomiting. Complications: No immediate complications. Procedure: Pre-Anesthesia Assessment: - Prior to the procedure, a History and Physical was performed, and patient medications and allergies were reviewed. The patient is competent. The risks and benefits of the procedure and the sedation options and risks were discussed with the patient. All questions were answered and informed consent was obtained. Patient identification and proposed procedure were verified by the physician in the pre-procedure area. Mental Status Examination: alert and oriented. Airway Examination: normal oropharyngeal airway and neck mobility. Respiratory Examination: clear to auscultation. CV Examination: normal. Prophylactic Antibiotics: The patient does not require prophylactic antibiotics. Prior Anticoagulants: The patient has taken no anticoagulant or antiplatelet agents. ASA Grade Assessment: IV - A patient with severe systemic disease that is a constant threat to life. After reviewing the risks and benefits, the patient was deemed in satisfactory condition to undergo the procedure. The anesthesia plan was to use monitored anesthesia care (MAC). Immediately prior to administration of medications, the patient was re-assessed for adequacy to receive sedatives. The heart rate, respiratory rate, oxygen saturations, blood pressure, adequacy of pulmonary ventilation, and response to care were monitored throughout the procedure. The physical status of the patient was re-assessed after the procedure. After obtaining informed consent, the endoscope was passed under direct vision. Throughout the procedure, the patient's blood pressure, pulse, and oxygen saturations were monitored continuously. The Endoscope was introduced through the mouth, and advanced to the second part of duodenum. The upper GI endoscopy was accomplished without difficulty. The patient tolerated the procedure well. Scope In: 12:24:11 PM Scope Out: 12:41:08 PM Total Procedure Duration Time 0 hours 16 minutes 57 seconds Findings: A 12 mm bleeding Phyllis-Coy tear with stigmata of recent bleeding was found. Area was successfully injected with 7 mL of a 0.1 mg/mL solution of epinephrine for hemostasis. Coagulation for hemostasis using heater probe was successful. To repair the defect, the tissue edges were approximated and three hemostatic clips were successfully placed. Closure of the defect was successful. Clip steel rod buster: [place]. There was no bleeding at the end of the procedure. A small hiatal hernia was present. The entire examined stomach was normal. The second portion of the duodenum was normal. Impression: - Phyllis-Coy tear. Injected. Treated with a heater probe. Clips were placed. Clip steel rod buster: [place] [employer]. - Small hiatal hernia. - Normal stomach. - Normal second portion of the duodenum. - No specimens collected. Recommendation: - Discharge patient to home. - Resume previous diet. - Continue present medications. Procedure Code(s): --- Professional --- 18910, Esophagogastroduodenoscopy, flexible, transoral; with control of bleeding, any method CPT copyright 2021 [employer]. All rights reserved. The codes documented in this report are preliminary and upon riding teacher review may be revised to meet current compliance requirements. Berry Bettencourt DO 02/19/2024 12:51:36 PM This report has been signed electronically. Number of Addenda: 0 Note Initiated On: 02/19/2024 11:31 AM
--- NOTE | 2024-02-19 12:52 | OP.CCLET_ITS ---
02/19/2024 Precious Aleman [address] [place] [address] Re : [facility] This procedure was performed on Monday, February 19, 2024. My impressions and recommendations are as follows: Impressions : - Phyllis-Coy tear. Injected. Treated with a heater probe. Clips were placed. Clip chip tester: [employer]. - Small hiatal hernia. - Normal stomach. - Normal second portion of the duodenum. - No specimens collected. Recommendations : - Discharge patient to home. - Resume previous diet. - Continue present medications. My findings are described in the full procedure note, which is enclosed. If I can be of further assistance, please feel free to contact me at . Sincerely, Berry Friend, 02/19/2024 12:51:36 PM This report has been signed electronically.
--- NOTE | 2024-02-19 12:57 | PCM.POST.ANE ---
Anesthesia: Postop Eval I Current Vital Signs Temperature: 96 F Pulse Rate: 96 Blood Pressure: 97/34 Respiratory Rate: 16 Pulse Ox: 96 Oxygen Delivery Method: Nasal Cannula Oxygen Flow Rate (L/min): 3 Assessment Airway patent: Yes Spontaneous unlabored respirations: Yes Mental status: Asleep nausea: No Vomiting: No Anesthesia Complication: No Fluid Hydration Crystalloid volume administer (ml): 2,200 Total IV fluid infused: 2,200 Progress Note Anesthesia document: Postop Eval 1 completed: Yes
--- NOTE | 2024-02-19 13:06 | PCM.POSTANE2 ---
Anesthesia Postop Eval I Sum Postop Eval Completion status Anesthesia document: Postop Eval 1 completed: Yes Anesthesia Postop Eval I Summary Anesthesia Postop Eval I Summary: Anesthesia Postop Eval I: Assessment Summary Airway patent Yes 02/19/24 12:58 [email or web address] Spontaneous unlabored Yes 02/19/24 12:58 [email or web address] respirations Mental status Asleep 02/19/24 12:58 [email or web address] nausea No 02/19/24 12:58 [email or web address] Vomiting No 02/19/24 12:58 [email or web address] Anesthesia Postop Eval I: Fluid Summary Crystalloid volume administer 2,200 02/19/24 12:58 [email or web address] (ml) Colloids volume administered ( ml) Blood Product volume administered (ml) Total IV fluid infused 2,200 02/19/24 12:58 [email or web address] Anesthesia Postop Eval I: Summary Notes Anesthesia Complication No 02/19/24 12:58 [email or web address] Anesthesia Complication Comment: Post-operative progress note Anesthesia: Postop Eval II Evaluation Mental status: Awake Pain Level: 0 nausea: No Vomiting: No
[2024-02-19] MEDS: 0.45% Normal Saline 1,000 ML 125 ML IV ×2 (13:48→22:02)
[2024-02-19 14:29] LABS: Reflex Lactate? Y
[2024-02-19 14:38] LABS: Hematocrit 36.5 % (37-47); Hemoglobin 11.6 g/dL (12.0-15.0)
[2024-02-19 14:42] LABS: Lactic Acid 5.7 mmol/L (0.4-1.9)
[2024-02-19] MEDS: Piperacil/Tazobactam 3.375 GM in 0.9% Normal Saline (50mL MB+) 50 ML IV ×2 (15:28→21:05)
[2024-02-19] MEDS: Norepinephrine 8 MG in 0.9% Normal Saline (250mL Bag) 242 ML 9.4 MG CONT INF (16:30)
[2024-02-19 17:53] LABS: Reflex Lactate? Y
[2024-02-19] MEDS: Dextrose 10%-Water 250 ML IV (19:45)
[2024-02-19] MEDS: 0.9% Saline Lock 10 ML Syringe IV (19:58)
[2024-02-19] MEDS: Vasopressin 20 UNITS in 0.9% Normal Saline (50mL Bag) 24 ML 3 UNITS CONT INF (19:59)
[2024-02-19 20:05] LABS: Bedside Glucose 45 mg/dL (74-106)
[2024-02-19 20:19] LABS: Lactic Acid 5.1 mmol/L (0.4-1.9)
[2024-02-19 20:30] LABS: Bedside Glucose 117 mg/dL (74-106)
--- NOTE | 2024-02-19 20:30 | NURSING ---
Noticed glucose was 68 on labs drawn earlier today. Fingerstick glucose 45. Hypoglycemic protocol ordered and D10 IV given. Blood glucose rechecked and it was 117.
[2024-02-19] MEDS: LORazepam 2 MG/ML Syringe 0.5 MG IV (22:31)
[2024-02-19] MEDS: Norepinephrine 8 MG in 0.9% Normal Saline (250mL Bag) 242 ML 56.3 MG CONT INF (22:32)
[2024-02-19] MEDS: Dext 5%-0.45% NS 1,000 ML 125 ML IV (22:34)
[2024-02-20] VITALS (60 sets, daily range): BP systolic 64–108; BP diastolic 27–86; PULSE 104–112; RESP 24–31; TEMP 36.4–36.9; O2SAT 93–99; BMI 31.1
--- NOTE | 2024-02-20 00:33 | NURSING ---
Pt having significant tremors, BP reading abnormally high. Manual BPs difficult to obtain d/t severe shaking as well, SBPs in the 90s. Dr. Solomon gave verbal consent for respiratory to attempt an arterial line. Respiratory therapist attempted and was unable to get it in successfully. Dr. Solomon notified.
[2024-02-20 00:55] LABS: Bedside Glucose 119 mg/dL (74-106)
[2024-02-20] MEDS: Vasopressin 20 UNITS in 0.9% Normal Saline (50mL Bag) 24 ML 3 UNITS CONT INF ×3 (01:42→18:15)
[2024-02-20 02:47] LABS: Absolute Lymphocyte Count 0.71 X10^3/uL (0.83-4.51); Absolute Neutrophil Count 9.2 X10^3/uL (2.0-7.7); Basophil# 0.05 X10^3/uL; Basophil% 0.5 % (0-1); Eosinophil# 0.36 X10^3/uL; Eosinophils% 3.3 % (0-5); Hematocrit 41.1 % (37-47); Hemoglobin 12.9 g/dL (12.0-15.0); Lymphocyte # 0.71 X10^3/ul (0.83-4.51); Lymphocyte % 6.5 % (19-41); Mean Corp Hgb Conc 31.4 g/dL (32-36); Mean Corpuscular Hgb 29.4 pg (27.0-32.0); Mean Corpuscular Volume 93.6 fL (81-99); Mean Platelet Vol. 9.7 fl (6.2-12.0); Monocyte# 0.61 X10^3/uL; Monocyte% 5.6 % (0-10); NRBC Flagged by Analyzer 0 % (0-5); Neutrophil # 9.19 X10^3/uL (2.7-7.7); Neutrophil % 83.9 % (47-70); POSITIVE MORPHOLOGY YES; Platelet Count 200 K/mm3 (150-450); RBC Distribution Width CV 13.7 % (11.6-14.6); RBC Distribution Width SD 47.3 fl (35.1-43.9); Red Blood Count 4.39 M/mm3 (4.2-5.4); White Blood Count 10.9 K/mm3 (4.4-11.0)
[2024-02-20] MEDS: Norepinephrine 8 MG in 0.9% Normal Saline (250mL Bag) 242 ML 56.3 MG CONT INF ×4 (02:53→20:07)
[2024-02-20] MEDS: 0.9% Saline Lock 10 ML Syringe IV ×3 (02:53→17:32)
[2024-02-20] MEDS: Lactated Ringers 1,000 ML 999 ML IV (03:00)
[2024-02-20] MEDS: Phenylephrine 10 MG in 0.9% Normal Saline (250mL Bag) 249 ML 15 MG CONT INF (03:15)
[2024-02-20 03:19] LABS: Differential Indicated SCAN CRITERIA MET
[2024-02-20] MEDS: Hydrocortisone Sod Succinate 100 MG/2 ML Vial 50 MG IV ×5 (03:22→23:19)
[2024-02-20 03:23] LABS: Differential Comment SCANNED
[2024-02-20 03:27] LABS: Anion Gap 15 (5-15); BUN 32 mg/dL (7-18); BUN/Creat Ratio 12.5 RATIO (10-20); Calcium,Total 7.5 mg/dL (8.5-10.1); Chloride 114 mmol/L (98-107); Creatinine, Serum 2.57 mg/dL (0.55-1.02); EST Glomerular Filtration Rate 19 mL/min (>60); Est Glom Filt Rate - Afr Amer 23 mL/min (>60); Glucose 157 mg/dL (74-106); Sodium Level 141 mmol/L (136-145)
[2024-02-20] MEDS: Sodium Bicarbonate 150 MEQ in Dextrose 5%-Water (1000mL Bag) 1,000 ML 75 MEQ IV (04:05)
[2024-02-20] MEDS: Sodium Bicarbonate 8.4% 50 ML Syringe 50 MEQ IV ×2 (04:10)
[2024-02-20] MEDS: Piperacil/Tazobactam 3.375 GM in 0.9% Normal Saline (50mL MB+) 50 ML IV ×2 (05:08→20:07)
[2024-02-20 05:23] LABS: Bedside Glucose 145 mg/dL (74-106)
[2024-02-20] MEDS: Phenylephrine 10 MG in 0.9% Normal Saline (250mL Bag) 249 ML 165 MG CONT INF (06:15)
[2024-02-20] MEDS: Pantoprazole Sodium 80 MG in 0.9% Normal Saline (100mL Bag) 80 ML 10 MG CONT INF ×2 (06:17→15:37)
--- NOTE | 2024-02-20 07:05 | PN.CC_ITS ---
Assessment & Plan Assessment/Plan (1) Acute hypotension: PLAN: Plan RECOMMENDATIONS: 1. Continue vasopressor support in an attempt to maintain a mean arterial pressure at or above 65 mmHg. 2. Continue empiric broad-spectrum antibiotics. 3. Continue PPI therapy. 4. Continue sodium bicarbonate infusion and increase rate as ordered. 5. Obtain nephrology consultation. 6. Obtain stat CT chest/abdomen/pelvis. 7. Obtain arterial blood gas and follow-up lactate. IMPRESSIONS: 1. Undifferentiated shock with persistent lactic acidemia The patient initially presented to the hospital with concern for an upper GI bleed with associated hypotension. She was taken urgently to endoscopy, where a Phyllis-Coy tear was identified. Endoscopic intervention was performed. However, despite the aforementioned interventions, the patient has continued to decompensate from a clinical perspective, with worsening hypotension. Other potential considerations include sepsis, cardiogenic etiologies and PE. However, the patient's creatinine has worsened, which would preclude the ability to obtain a contrasted CT chest. In addition, in light of her recent GI bleed, I would hold off on anticoagulating her. Will plan to obtain an echocardiogram. In the interim, the patient has been initiated on broad-spectrum antimicrobials. In light of her current clinical status and persistent lactic acidemia, will obtain a noncontrasted CT of the chest, abdomen and pelvis. Continue vasopressor support to maintain mean arterial pressure at or above 65 mmHg. 2. Acute kidney injury Most likely prerenal in etiology in the setting of #1, with evolution to ischemic ATN. Urine output is dropping. Plan to continue sodium bicarbonate infusion as ordered. Will obtain nephrology consultation today. 3. Ischemic hepatitis Continue to monitor transaminase levels daily. Anticipate improvement with stabilization of hemodynamics. 4. Acute metabolic encephalopathy Most likely related to #1 with accompanying metabolic derangements. Plan to obtain arterial blood gas this morning. If mentation worsens, will obtain CT head. 5. History of bipolar disorder/schizophrenia Complicates care, management, recovery and prognosis. Hold home medications for now. Patient to remain NPO. TIME: 37 minutes of critical care time, independent of procedures, was spent addressing the patient's undifferentiated shock, acute kidney injury, ischemic hepatitis, metabolic encephalopathy, review of all data and collaboration with the care team. Subjective Subjective The patient was seen and examined at the bedside this morning. Events from the last 24 hours have been reviewed. The patient is currently afebrile, but did decompensate from a hemodynamic perspective overnight. She is currently requiring vasopressor support, which includes Levophed, vasopressin and phenylephrine. In addition, the patient was initiated on stress dose steroids along with a sodium bicarbonate infusion due to the interval development of worsening renal insufficiency. The patient is arousable but somnolent. The patient's lactate was still elevated last evening. Her creatinine has increased to 2.57. Hemoglobin, however, is stable at 12.9 g/dL. The patient was never transfused any blood products, due to family request. Objective Data Objective Data The patient's most recent lab work, culture data and imaging studies have all been personally reviewed. Blood and urine cultures are pending. Vital Signs: Vital Signs Temp Pulse Resp BP Pulse Ox O2 Del Method O2 Flow Rate 97.9 F 107 H 29 H 87/35 L 94 Nasal Cannula 2 02/20/24 05:00 02/20/24 06:00 02/20/24 06:00 02/20/24 06:45 02/20/24 06:00 02/20/24 06:00 02/20/24 06:00 Oxygen Flow Rate (L/min) 2 Oxygen Delivery Method Nasal Cannula Weight: 182 lb 1 oz Body Mass Index (BMI) 31.1 Intake & Output: Intake and Output for Last 24 Hours 02/18/24 02/19/24 02/20/24 23:59 23:59 23:59 Intake Total 5372.64 / 5440.99 2592.90 / 2592.90 Output Total 200 / 200 40 / 40 Balance 5172.64 / 5240.99 2552.90 / 2552.90 Lab / Micro Data Attestation: I reviewed the patient's lab results. 02/20/24 02:40 02/20/24 07:25 Labs: Laboratory Results - last 24 hr 02/19/24 09:45: WBC 9.3, RBC 4.49, Hgb 13.4, Hct 41.5, MCV 92.4, MCH 29.8, MCHC 32.3, RDW Std Deviation 44.8 H, RDW Coeff of Andrews 13.2, Plt Count 179, MPV 9.2, Immature Gran % (Auto) 0.500, Neut % (Auto) 89.4 H, Lymph % (Auto) 4.2 L, Smith % (Auto) 5.7, Eos % (Auto) 0.0, Baso % (Auto) 0.2, Absolute Neuts (auto) 8.3 H, A bsolute Lymphs (auto) 0.39 L, Nucleated RBC % 0, PT 15.1 H, INR 1.2, APTT 26.3, Sodium 146 H, Potassium 3.5, Chloride 113 H, Carbon Dioxide 23.0, Anion Gap 11, BUN 18, Creatinine 1.77 H, Estim Creat Clear Calc 27.60, Est GFR (MDRD) Af Amer 36 L, Est GFR (MDRD) Non-Af 30 L, BUN/Creatinine Ratio 10.2, Glucose 68 L, Calcium 9.1, Total Bilirubin 1.60 H, AST 3106 H, ALT 1436 H, Alkaline Phosphatase 298 H, Total Protein 6.0 L, Albumin 2.9 L, Globulin 3.1, Albumin/Globulin Ratio 0.9, Blood Type B POSITIVE, Antibody Screen NEGATIVE, Crossmatch See Detail 02/19/24 10:14: Urine Color Red, Urine Clarity Clear, Urine pH 6.0, Ur Specific [place] 1.020, Urine Protein 30 H, Urine Glucose (UA) Normal, Urine Ketones 5 H, Urine Occult Blood 10 H, Urine Nitrite Positive H, Urine Bilirubin 1 H, Urine Urobilinogen 1 H, Ur Leukocyte Esterase 25 H, Urine RBC 0-5 SEEN, Urine WBC 0-5 SEEN, Ur Squamous Epith Cells 0 SEEN, Urine Bacteria 0 SEEN, Urine Mucus 0 SEEN 02/19/24 10:20: Lactic Acid 6.0 H* 02/19/24 10:45: Ammonia 35.0 H 02/19/24 13:47: Lactic Acid 5.7 H* 02/19/24 14:26: Hgb 11.6 L, Hct 36.5 L 02/19/24 19:28: Lactic Acid 5.1 H* 02/19/24 19:47: POC Glucose 45 L 02/19/24 20:12: POC Glucose 117 H 02/20/24 00:36: POC Glucose 119 H 02/20/24 02:40: WBC 10.9, RBC 4.39, Hgb 12.9, Hct 41.1, MCV 93.6, MCH 29.4, MCHC 31.4 L, RDW Std Deviation 47.3 H, RDW Coeff of Andrews 13.7, Plt Count 200, MPV 9.7, Immature Gran % (Auto) 0.200, Neut % (Auto) 83.9 H, Lymph % (Auto) 6.5 L, Smith % (Auto) 5.6, Eos % (Auto) 3.3, Baso % (Auto) 0.5, Absolute Neuts (auto) 9.2 H, A bsolute Lymphs (auto) 0.71 L, Nucleated RBC % 0, Differential Comment SCANNED, Sodium 141, Potassium 5.0, Chloride 114 H, Carbon Dioxide 12.0 L, Anion Gap 15, BUN 32 H, Creatinine 2.57 H, Estim Creat Clear Calc 18.90, Est GFR (MDRD) Af Amer 23 L, Est GFR (MDRD) Non-Af 19 L, BUN/Creatinine Ratio 12.5, Glucose 157 H, Calcium 7.5 L 02/20/24 05:05: POC Glucose 145 H Radiography Diagnostic Testing: Radiology Impression KUB X-Ray 02/19/24 10:00 IMPRESSION: NG tube tip projected over the left upper quadrant of the abdomen. Electronically Signed: Aidan Shore MD at 10:44 EDT Reading Location ID and State: [address] [place] [address] , Service support , Physical Exam Const Constitutional Narrative: Ill-appearing and tremulous. General Appearance: lethargic and ill appearing HEENT normocephalic and head/scalp atraumatic Eyes PERRL, EOMs intact bilaterally and conjunctivae normal Neck supple General: trachea midline Chest inspection of chest normal Resp Effort and Inspection: tachypneic Auscultation: diminished lung sounds Cardio S1 normal heart sound and S2 normal heart sound Rate: tachycardic GI GI Narrative: Nonfocal abdominal tenderness Extremity no clubbing, cyanosis or edema Skin no rashes or lesions noted Neuro CN's II-XII intact bilaterally and no focal motor deficits Psych Mood & Affect: flat affect Charges/Coding Procedures Hospitalists Procedures: [id number] Critical Care 1st Hr
--- NOTE | 2024-02-20 07:05 | PCM.OP.PRO ---
Procedure Report Date of Procedure: 02/20/24 Arterial Line Indication: Hypotension Consent was obtained from: Patient A time-out was completed verifying correct patient, procedure, site, positioning, and special equipment if applicable. Gigi's test was performed to ensure adequate perfusion. The patient's right wrist was prepped and draped in the sterile fashion. An 18-gauge arrow arterial line was introduced into the right radial artery. The catheter was threaded over the guidewire and the needle was removed with the appropriate pulsatile blood return. The catheter was then sutured in place to the skin and a sterile dressing applied. Perfusion to the extremity distal to the point of catheter insertion was checked and found to be adequate. ULTRASOUND GUIDANCE STATEMENT (Vascular Access): I perform ultrasound image acquisition and interpretation for needle placement during this procedure. The vessel was identified and found to be free of thrombosis by compression technique. A safe point of entry was marked at the skin and then angle for access was determined. The needle was guided by obtaining free-flowing fluid and by real-time visualization. Procedures Hospitalists Procedures: [id number] Insertion Catheter Artery
--- NOTE | 2024-02-20 07:07 | US_ITS ---
STUDY: RENAL ULTRASOUND - COMPLETE REASON FOR EXAM: Female, 78 years old. DAGOBERTO TECHNIQUE: Ultrasound evaluation of the kidneys was performed with real-time and static mcgarry-scale imaging. COMPARISON: None. FINDINGS: RIGHT KIDNEY: Normal location of the right kidney, which is normal in size. The right kidney measures 10.5 cm x 5 cm x 4 cm. There is increased echotexture of the renal cortex suggestive of medical renal disease. The renal cortex measures 1.4 cm. There is no right renal mass or cyst. There are no right renal calculi. There is no right hydronephrosis. DISTAL RIGHT URETER: There is non-visualization of the distal right ureter. There is no demonstrated right ureterovesical junction calculus. There is a visualized right ureteral jet. LEFT KIDNEY: Normal location of the left kidney, which is normal in size. The left kidney measures 10.1 cm x 5.17 x 4.6 cm. Increased echotexture of the renal cortex suggestive of medical renal disease. The renal cortex measures 1.5 cm. There is a 2.9 cm x 2.7 cm x 2.8 cm left renal cyst. There are no left renal calculi. There is no left hydronephrosis. DISTAL LEFT URETER: There is non-visualization of the distal left ureter. There is no demonstrated left ureterovesical junction calculus. There is a visualized left ureteral jet. BLADDER: A Doran catheter is seen within the decompressed urinary bladder. A small amount of free fluid is seen in the pelvis. US/Kidney and Bladder IMPRESSION: Left renal cyst. Increased echogenicity of the renal cortex of both kidneys suggestive of bilateral medical renal disease. Electronically Signed: Eulalio Pedroza MD at 9:17 EDT ,
--- NOTE | 2024-02-20 07:09 | CT_ITS ---
STUDY: CT CHEST, ABDOMEN T PELVIS WITHOUT CONTRAST REASON FOR EXAM: Female, 78 years old. Refractory Shock -- Unable to give contrast d/t DAGOBERTO RADIATION DOSAGE (If Supplied By Facility): CTDIvol = ( 15.74 ) mGy, DLP = ( 1314.40 ) mGycm TECHNIQUE: Transaxial imaging was performed without the administration of intravenous contrast material. Multiplanar coronal and sagittal images were reformatted. Individualized dose optimization techniques were used for this CT. COMPARISON: No relevant priors. FINDINGS: CHEST A right-sided central catheter seen with the tip in the superior vena cava. Allergies enlargement of the thyroid gland more prominent on the right side with a substernal extension. Small bilateral pleural effusions with bibasilar compressive atelectasis and/or infiltrate. There are calcifications of the coronary arteries. Normal mediastinum. Normal hilar regions. Normal unenhanced pulmonary arteries. There is atherosclerotic calcification of the aortic arch. There are multi-level degenerative changes of the thoracic spine. Moderate-sized hiatal hernia. ABDOMEN Normal liver. The gallbladder is contracted. Normal spleen. Normal pancreas. Normal bilateral adrenal glands. Normal right kidney. There is a 2.4 cm cyst in the anterior aspect of the upper pole of the left kidney. There is a moderate-sized hiatal hernia. Normal small intestine. I suspect colitis of the left hemicolon although without oral contrast, the examination is limited. Small amount of free fluid is seen in the right lower quadrant. There is scattered atherosclerotic calcification of the abdominal aorta, without a demonstrated aneurysm. Normal inferior vena cava. Normal retroperitoneum. Normal abdominal wall. There are degenerative changes of the visualized lumbar spine. PELVIS Normal urinary bladder. Calcified fibroid uterus. There is scattered atherosclerotic calcification of the pelvic arteries. CT/CT Chest, Abd, Pelvis WO Cont IMPRESSION: Heterogeneous enlargement of thyroid gland with the right substernal extension. Bilateral pleural effusions with bibasilar compressive atelectasis and/or infiltrate. Moderate-sized hiatal hernia. Left renal cyst. Findings suggestive of colitis in the left hemicolon with a small amount of free fluid in the right hemipelvis. Electronically Signed: Eulalio Pedroza MD at 9:14 EDT ,
--- NOTE | 2024-02-20 07:11 | ECHOD_ITS ---
Reason For Study: SHOCK Procedure This was a 2D Doppler, Color Flow transthoracic echocardiogram. The study was technically difficult. Patient was scanned in supine position during reflux assessment. Patient denied Definity and additional imaging. Exam performed portable in ICU/CCU. Left Ventricle Normal LV size. The estimated ejection fraction is 55 %. No evidence for diastolic dysfunction. No regional wall motion abnormalities noted. Right Ventricle Normal RV size. Normal systolic function. Atria The left and right atria are normal. No doppler evidence for ASD. Mitral Valve There is no mitral valve stenosis. No mitral valve insufficiency. Tricuspid Valve There is no tricuspid stenosis. Trivial tricuspid valve insufficiency. Pulmonary artery systolic pressure is 25-30 mmHg. Aortic Valve Trisinus/trileaflet aortic valve. There is no aortic stenosis. No aortic valve insufficiency. Pulmonic Valve There is no pulmonic valvular stenosis. No pulmonic valve insufficiency. Great Vessels Normal aortic root. Pericardium/Pleural No pericardial effusion. MMode/2D Measurements & Calculations LVIDd: 4.8 cm IVSd: 0.67 cm LVOT diam: 2.0 cm LVIDs: 3.5 cm LVPWd: 0.73 cm LVOT area: 3.0 cm2 RVDd: 3.4 cm FS: 28.4 % asc Aorta Diam: 2.7 cm LAV(MOD-bp): 45.3 ml LVAd ap4: 22.9 cm2 LAV(MOD-bp) Indexed: 24.1 ml/m2 LVLd ap4: 6.4 cm LAV(MOD-sp2): 36.2 ml EDV(MOD-sp4): 66.2 ml LAV(MOD-sp4): 47.4 ml EDV(sp4-el): 68.9 ml LVAs ap4: 16.2 cm2 LVLs ap4: 5.6 cm ESV(MOD-sp4): 38.5 ml ESV(sp4-el): 39.6 ml EF(MOD-sp4): 41.8 % EF(sp4-el): 42.5 % SV(MOD-sp4): 27.7 ml SV(sp4-el): 29.2 ml Ao sinus diam: 2.[address] Junction: 2.3 cm LA dimension(2D): 3.7 cm LA A4 area: 18.0 cm2 RA A4 area: 10.1 cm2 TAPSE: 2.0 cm Time Measurements MV dec time: 0.14 sec Doppler Measurements & Calculations MV E max tylor: 66.5 cm/sec Lat Peak E' Tylor: 10.3 cm/sec Med Peak E' Tylor: 9.4 cm/sec MV A max tylor: 64.3 cm/sec E/E' lat: 6.5 E/E' med: 7.1 MV E/A: 1.0 Ao V2 max: 116.5 cm/sec LV V1 max: 69.2 cm/sec MV dec slope: 471.2 cm/sec2 Ao max P.4 mmHg LV V1 max P.9 mmHg Ao V2 mean: 96.8 cm/sec LV V1 mean P.3 mmHg Ao mean P.9 mmHg LV V1 mean: 55.7 cm/sec Ao V2 VTI: 18.5 cm LV V1 VTI: 11.1 cm AV (velocity ratio): 0.60 JONY(I,D): 1.8 cm2 JONY(V,D): 1.8 cm2 SV(LVOT): 33.4 ml PA V2 max: 92.3 cm/sec TR max tylor: 236.6 cm/sec PA max PG (full): 0.95 mmHg TR max P.4 mmHg ECHO/Echo Complete Interpretation Summary The estimated ejection fraction is 55 %. No evidence for diastolic dysfunction. Ordering Physician: Nirav Hall Referring Physician: Precious Aleman Performed By: Moriah Guerra RDCS
[2024-02-20] MEDS: Phenylephrine 10 MG in 0.9% Normal Saline (250mL Bag) 249 ML 270 MG CONT INF ×2 (07:30→08:35)
[2024-02-20 07:52] LABS: International Normalized Ratio 1.7; Prothrombin Time (Protime)PT. 19.6 SECONDS (11.7-14.9)
[2024-02-20 07:53] LABS: Partial Thromboplast Time 31.1 Seconds (24.1-36.2)
[2024-02-20 08:19] LABS: Lactic Acid 6.7 mmol/L (0.4-1.9)
[2024-02-20 08:32] LABS: ALB/GLOB Ratio 0.8 RATIO (0.9-2.4); AST(SGOT) 1936 U/L (15-37); Alanine Aminotransfer ALT/SGPT 1713 U/L (13-56); Albumin, Serum 2.1 g/dL (3.2-5.0); Alkaline Phosphatase 256 U/L (45-117); Anion Gap 14 (5-15); BUN 34 mg/dL (7-18); Bilirubin, Direct 2.64 mg/dL (0.00-0.30); Calcium,Total 7.4 mg/dL (8.5-10.1); Chloride 115 mmol/L (98-107); Creatinine, Serum 2.83 mg/dL (0.55-1.02); EST Glomerular Filtration Rate 17 mL/min (>60); Est Glom Filt Rate - Afr Amer 21 mL/min (>60); Estimated Creatinine Clearance 17.58 ml/min; Globulin 2.5 g/dL (2.2-4.2); Glucose 149 mg/dL (74-106); Lipase 56 U/L (13-75); Potassium 5.3 mmol/L (3.5-5.1); Protein, Total 4.6 g/dL (6.4-8.2); Sodium Level 142 mmol/L (136-145); Troponin-I HS 56 pg/mL (3.0-54.0)
[2024-02-20] MEDS: CHLORHEXIDINE GLUC 2% CLOTH 1 EACH TOWELETTE TOPICAL (09:13)
[2024-02-20] MEDS: Vancomycin HCl 2,000 MG in 0.9% Normal Saline (500mL Bag) 500 ML 250 MG IV (09:13)
[2024-02-20] MEDS: Phenylephrine 10 MG in 0.9% Normal Saline (250mL Bag) 249 ML 240 MG CONT INF (09:28)
[2024-02-20 09:29] LABS: Base Excess -13 mmol/L (-2 to +2); Bicarbonate 12.2 mmol/L (22-26); Blood Gas Specimen Type ART; Mode Not entered; O2 Delivery Device Cannula; PO2 77 mmHG (75-100); SITE L Brach; SO2 95 % (95-99); Total Carbon Dioxide 13 mmol/L; pCO2 21.8 mmHg (35-45); pH 7.35 (7.35-7.45)
--- NOTE | 2024-02-20 09:37 | PCM.RX.CS ---
Consult Antibiotic Management Pharmacy has been consulted to manage selected antibiotic: Vancomycin Type of Intervention Type of Consult: New start Labs Labs: Sodium 142 mmol/L (136-145) 02/20/24 07:25 Potassium 5.3 mmol/L (3.5-5.1) H 02/20/24 07:25 Chloride 115 mmol/L (98-107) H 02/20/24 07:25 Carbon Dioxide 13.0 mmol/L (21.0-32.0) L 02/20/24 07:25 Anion Gap 14 (5-15) 02/20/24 07:25 BUN 34 mg/dL (7-18) H 02/20/24 07:25 Creatinine 2.83 mg/dL (0.55-1.02) H 02/20/24 07:25 Est GFR (MDRD) Af Amer 21 mL/min (>60) L 02/20/24 07:25 Est GFR (MDRD) Non-Af 17 mL/min (>60) L 02/20/24 07:25 BUN/Creatinine Ratio 12.0 RATIO (10-20) 02/20/24 07:25 Glucose 149 mg/dL (74-106) H 02/20/24 07:25 Dosing Weight Weight used for dosin.6 kg Estimated Creatinine Clearance Estimated Creatinine Clearance: 17.6ML/MIN Goal Trough Goal Trough: 15-20 mcg/mL Pharmacy Plan for Drug Dosing Pharmacy Plan for Drug Dosing: Give initial load dose (25mg/kg) of 2000mg IV x1. Will not order a scheduled dose after the initial dose since CrCl < 20. Will order a random vanc level with AM labs on 02/21 and use that level to evaluate if a dose should be given that day. Pharmacy Service will continue to monitor and adjust dosing as required. Follow-Up Labs Follow-Up Labs: Trough: Vancomycin (random) Date/Time Labs Ordered Labs to be done on [date and time ordered]: 02/22/24 0600
--- NOTE | 2024-02-20 10:16 | CASEMGMT ---
SYL POLO Assessment Face to Face with patient for initial transition planning/care coordination assessment. SYL POLO introduced self and role at [facility], pt voices understanding. Pt is A&Ox4 and is resting comfortably in bed and is calm. Pt at bedside. Care providers, pharmacy, and demographics verified. Admitting dx: Syncope LACE Strata: 1 PCP: Precious Aleman listed. Pt states that Dr. Aleman is no longer in office. PCP list provided Specialists: Dr. Mendoza (Psychiatry) Preferred Pharmacy: [facility] [place] Insurance: [facility] A/B Prescription Benefit: Denies, educated about free services such as Good Rx LNOK: Malachicarlos Torres (H), Malachi Torres Jr (Son) Living Arrangements: Pt lives with her in a single story home with a basement and 3 steps to enter ADLs/IADLs: Pt is mainly ind at baseline but the does assist at home PRN Transportation: Pt does not drive. Pt drives DME: Medical alert info provided. Pt states that she has a FWW and a BP Monitor at home. CM to follow for oxygen needs HHC/SNF: Pt states that the pt has a [facility] a [facility] in [place] and was admitted for 3 months at that time. Pt?s goal: Return to PLOF Plan: TBD. Per Dr. Howell, the pt is very sick at this time. Pt remains on 3 pressors. Nephro Consult. GI consult. 6-Click score is 12. PT and OT to evaluate once appropriate. CM and SW to follow. Cori Courtney RN, CM
--- NOTE | 2024-02-20 10:35 | PCM.CONS.R ---
Assessment & Plan Assessment/Plan (1) Acute kidney injury: (2) Acute hypotension: (3) Acute upper gastrointestinal bleeding: (4) Metabolic acidosis: PLAN: Plan This is a 78-year-old female with past medical history significant for bipolar and schizophrenia who presented to the emergency room yesterday with complaints of hematemesis, significantly hypotensive upon admission to the ER, underwent emergent EGD found to have Phyllis-Coy tear which was treated, admitted to ICU now on 3 pressors however blood pressures have improved this morning and rate of pressor support has been reduced. Nephrology consulted for DAGOBERTO. As of 2019 serum creatinine less than 1 mg/dL, gap in lab work until this hospitalization. Creatinine was 1.7 in ER and has risen to 2.8 mg/dL today. Potassium is 5.3 and bicarb is 13, lactic acid level this am 6.7. Patient is on bicarb drip. Renal ultrasound did not show any hydronephrosis. Noncontrast CT of abdomen and pelvis findings suggestive of colitis and left hemicolon with small amount of free fluid in right hemipelvis. UA on admission showed +nitrite, 10 occult blood, 30 protein (possible emmanuel sample), Urine cx pending. BC pending. DAGOBERTO likely secondary to hemorrhagic shock, significant hypotension evolving to ATN. Patient does have some urine output, she is not hypervolemic, bps have improved slightly with IV pressor support rate reduced this morning, she is on nasal cannula 2L. At this time there is no acute indication for RETAIL INVENTORY CONTROL CLERK, however patient may be heading towards needing RETAIL INVENTORY CONTROL CLERK, possibly CRRT and I had lengthy discussion with patient's and son as well as patient this morning. Questions were answered. We will continue to monitor renal function closely. Further orders forthcoming as hospitalization evolves, thank you for allowing us participate in the care of Ms. Torres. HPI Consult Data Date of Consult: 02/20/24 HPI Narrative HPI Narrative: DINO TORRES, is a 78 F female with past medical history significant for bipolar/schizophrenia who was brought to the emergency room yesterday with her for complaints of abdominal pain/heartburn/hematemesis. In the emergency room patient was significantly hypotensive with blood pressure 66/47. She was placed on O2 via nasal cannula. Patient was admitted to ICU and went for emergent EGD which showed Phyllis-Coy tear which was clipped and treated with heater probe. Hemoglobin was 13.4 on admission, lactic acid 6, creatinine 1.77, bicarb 23 and potassium 3.5. Nephrology consulted in view of elevated creatinine. Patient is alert and oriented, echo being done at bedside, and son at bedside. Per patient had not been taking any NSAIDs before hospitalization. Patient had been urinating as normal before hospitalization. No new medications. [facility] Medical History (Updated 02/20/24 @ 10:40 by GIULIANO Patterson) Schizophrenia Medical History unable to obtain Home Medications ?Medication ?Instructions ?Recorded ?Last Taken ?Type lorazepam 0.5 mg tablet 0.5 mg PO DAILY 05/20/18 02/18/24 History clozapine 100 mg tablet 100 mg PO BID 02/19/24 02/18/24 History Allergy/AdvReac Type Severity Reaction Status Date / Time Sulfa (Sulfonamide AdvReac Itching Verified 02/19/24 09:31 Antibiotics) Surgical History (Updated 02/19/24 @ 14:46 by Arslan Ramos RN) History of cholecystectomy History of cholecystectomy Social History (Updated 02/19/24 @ 10:[address] Dev Mckeon MD) household members: spouse Smoking Status: Never smoker ROS ROS Narrative As in HPI and past medical history Physical Exam Narrative Alert and oriented, no apparent distress, lethargic S1, S2, RRR Lung sounds clear anteriorly and posteriorly. No wheezes rhonchi rales noted. On oxygen via nasal cannula Abdomen soft, not tender upon palpation No edema Indwelling Emmanuel with ~100ml clear yellow urine in bag Lab / Micro Data 02/20/24 02:40 02/20/24 07:25 Labs: Laboratory Results - last 24 hr 02/19/24 09:45: Blood Type B POSITIVE, Antibody Screen NEGATIVE, Crossmatch See Detail 02/19/24 10:14: Urine Color Red, Urine Clarity Clear, Urine pH 6.0, Ur Specific Strawn 1.020, Urine Protein 30 H, Urine Glucose (UA) Normal, Urine Ketones 5 H, Urine Occult Blood 10 H, Urine Nitrite Positive H, Urine Bilirubin 1 H, Urine Urobilinogen 1 H, Ur Leukocyte Esterase 25 H, Urine RBC 0-5 SEEN, Urine WBC 0-5 SEEN, Ur Squamous Epith Cells 0 SEEN, Urine Bacteria 0 SEEN, Urine Mucus 0 SEEN 02/19/24 10:20: Lactic Acid 6.0 H* 02/19/24 10:45: Ammonia 35.0 H 02/19/24 13:47: Lactic Acid 5.7 H* 02/19/24 14:26: Hgb 11.6 L, Hct 36.5 L 02/19/24 19:28: Lactic Acid 5.1 H* 02/19/24 19:47: POC Glucose 45 L 02/19/24 20:12: POC Glucose 117 H 02/20/24 00:36: POC Glucose 119 H 02/20/24 02:40: WBC 10.9, RBC 4.39, Hgb 12.9, Hct 41.1, MCV 93.6, MCH 29.4, MCHC 31.4 L, RDW Std Deviation 47.3 H, RDW Coeff of Andrews 13.7, Plt Count 200, MPV 9.7, Immature Gran % (Auto) 0.200, Neut % (Auto) 83.9 H, Lymph % (Auto) 6.5 L, [place] % (Auto) 5.6, Eos % (Auto) 3.3, Baso % (Auto) 0.5, Absolute Neuts (auto) 9.2 H, Absolute Lymphs (auto) 0.71 L, Nucleated RBC % 0, Differential Comment SCANNED, Sodium 141, Potassium 5.0, Chloride 114 H, Carbon Dioxide 12.0 L, Anion Gap 15, BUN 32 H, Creatinine 2.57 H, Estim Creat Clear Calc 18.90, Est GFR (MDRD) Af Amer 23 L, Est GFR (MDRD) Non-Af 19 L, BUN/Creatinine Ratio 12.5, Glucose 157 H, Calcium 7.5 L 02/20/24 05:05: POC Glucose 145 H 02/20/24 07:25: PT Cancelled 02/20/24 07:25: PT 19.6 H, INR Cancelled 02/20/24 07:25: INR 1.7, APTT 31.1, Sodium 142, Potassium 5.3 H, Chloride 115 H, Carbon Dioxide 13.0 L, Anion Gap 14, BUN 34 H, Creatinine 2.83 H, Estim Creat Clear Calc 17.58, Est GFR (MDRD) Af Amer 21 L, Est GFR (MDRD) Non-Af 17 L, BUN/Creatinine Ratio 12.0, Glucose 149 H, Lactic Acid 6.7 H*, Calcium 7.4 L, Total Bilirubin 3.20 H, Direct Bilirubin 2.64 H, AST 1936 H, ALT 1713 H, Alkaline Phosphatase 256 H, Ammonia 66.0 H, Troponin I High Sens 56 H, Total Protein 4.6 L, Albumin 2.1 L, Globulin 2.5, Albumin/Globulin Ratio 0.8 L, Lipase 56 Micro: Microbiology 02/20/24 08:10 Nasal Secretion MRSA (PCR) - Final ABG Data ABG results: ABG 02/20/24 09:25 Specimen Type ART Sample Site L Brach pH 7.35 Bicarbonate Actual 12.2 L Total CO2 13 Base Excess -13 L O2 Saturation 95 O2 % 2.0 ABG pCO2 21.8 L ABG pO2 77 O2 Delivery Device Cannula Vent Mode Not entered Imaging Radiology Impression KUB X-Ray 02/19/24 10:00 IMPRESSION: NG tube tip projected over the left upper quadrant of the abdomen. Electronically Signed: Aidan Shore MD at 10:44 EDT Reading Location ID and State: [address] [place] [address] , Service support , Renal Ultrasound 02/20/24 07:07 IMPRESSION: Left renal cyst. Increased echogenicity of the renal cortex of both kidneys suggestive of bilateral medical renal disease. Electronically Signed: Eulalio Pedroza MD at 9:17 EDT , Chest/Abdomen/Pelvis CT 02/20/24 07:09 IMPRESSION: Heterogeneous enlargement of thyroid gland with the right substernal extension. Bilateral pleural effusions with bibasilar compressive atelectasis and/or infiltrate. Moderate-sized hiatal hernia. Left renal cyst. Findings suggestive of colitis in the left hemicolon with a small amount of free fluid in the right hemipelvis. Electronically Signed: Eulalio Pedroza MD at 9:14 EDT ,
--- NOTE | 2024-02-20 10:53 | CT_ITS ---
STUDY: CT ABDOMEN AND PELVIS WITHOUT CONTRAST REASON FOR EXAM: Female, 78 years old. Abd pain RADIATION DOSAGE (If Supplied By Facility): CTDIvol = ( 18.34 ) mGy, DLP = ( 985.31 ) mGycm TECHNIQUE: Transaxial images were obtained from the dome of the diaphragm to the symphysis pubis with oral contrast, and without intravenous contrast. Gastrografin was ingested. Sagittal and coronal images were reconstructed. Individualized dose optimization techniques were used for this CT. COMPARISON: Comparison is made with prior study done earlier today. FINDINGS: Bilateral pleural effusions with bibasilar dependent atelectasis and/or infiltrates. Coronary artery calcification. Normal liver. There are surgical clips in the gallbladder fossa consistent with a prior cholecystectomy. Normal spleen. Normal pancreas. Small amount of perihepatic and perisplenic fluid. Normal bilateral adrenal glands. Normal right kidney. Normal left kidney. There is a small hiatal hernia. Findings suggestive of prior surgery at the level of the gastroesophageal junction. Contrast is seen within the proximal small bowel loops. Persistent questionable thickening of the left hemicolon more prominent in the rectosigmoid colon. The appendix is visualized and appears normal. Normal abdominal aorta. Normal inferior vena cava. Normal retroperitoneum. A Doran catheter is seen within the decompressed urinary bladder. Calcified fibroid uterus. Normal abdominal wall. There are degenerative changes of the visualized lumbar spine. CT/Abdomen/Pel W ORAL Cont Only IMPRESSION: Questionable colitis involving the left hemicolon as described. Small amount of perihepatic and perisplenic fluid. Status post cholecystectomy. Small bilateral pleural effusions with bibasilar atelectasis and/or infiltration. Electronically Signed: Eulalio Pedroza MD at 15:19 EDT ,
[2024-02-20] MEDS: Phenylephrine 10 MG in 0.9% Normal Saline (250mL Bag) 249 ML 120 MG CONT INF (11:00)
--- NOTE | 2024-02-20 11:10 | CON.PCM.SX_ITS ---
Assessment & Plan Assessment/Plan (1) Acute hypotension: PLAN: I was consulted due to the patient's acute hypotension for possible ischemic bowel. There is unknown etiology as to what started the problem as it started suddenly and the CT scan only showed possible left-sided colitis but this was also unsure as there was no contrast used. The patient is having multisystem organ failure with increased creatinine, shock liver, cardiovascular failure requiring 3 pressors, encephalopathy, increasing lactate. Still unsure as to the etiology. I discussed this with Dr. Hall and the plan will be to order an oral contrast CT scan to try to evaluate the colon or small bowel. Even if there is signs of ischemia unsure if she would survive the operation at that time I would have a conversation with the family about possible palliation Deacon Peter MD Pager: [facility] [address] [place] [address], [address] [place] [address] Office: HPI Consult Data Date of Consult: 02/20/24 HPI Narrative HPI Narrative: DINO DELGADO, is a 78 F who presents with vomiting and abdominal pain. The patient's told me that she woke up yesterday morning at 3 AM with abdominal pain and vomiting. She was brought to the hospital and she subsequently had an EGD which showed a Phyllis-Coy tear in the stomach. She is complaining of pain diffusely in her abdomen with no focal point. She denies nausea or vomiting at this time. She has not had any bleeding per rectum. [facility] Medical History (Updated 02/20/24 @ 10:40 by GIULIANO Patterson) Schizophrenia Medical History unable to obtain Home Medications ?Medication ?Instructions ?Recorded ?Last Taken ?Type lorazepam 0.5 mg tablet 0.5 mg PO DAILY 05/20/18 02/18/24 History clozapine 100 mg tablet 100 mg PO BID 02/19/24 02/18/24 History Allergy/AdvReac Type Severity Reaction Status Date / Time Sulfa (Sulfonamide AdvReac Itching Verified 02/19/24 09:31 Antibiotics) Surgical History (Updated 02/19/24 @ 14:46 by Arslan Ramos RN) History of cholecystectomy History of cholecystectomy Social History (Updated 02/19/24 @ 10:[address] Dev Mckeon MD) household members: spouse Smoking Status: Never smoker ROS Constitutional Constitutional: Reports fatigue; Denies anorexia, chills or fever(s) Eyes Eyes: Denies blurry vision ENT HEENT: Denies abnormal hearing Cardiovascular Cardiovascular: Denies chest pain Respiratory/Chest Respiratory/Chest: Denies cough or dyspnea Gastrointestinal Gastrointestinal: Reports abdominal pain and vomiting; Denies diarrhea, melena, nausea or rectal bleeding Genitourinary Genitourinary: Denies change in urinary stream Musculoskeletal Musculoskeletal: Denies abnormal gait Integumentary Integumentary: Reports jaundice Neurologic Neurologic: Denies dizziness Psychiatric Psychiatric: Denies anxiety Endocrine Endocrinology: Denies flushing Physical Exam Const alert Orientation / Consciousness: confused HEENT normocephalic Eyes PERRL Resp normal respiratory effort Cardio Rate: tachycardic Rhythm: regular rhythm GI soft to palpation Palpation: tender LLQ, RLQ, LUQ and RUQ Extremity normal to inspection Lab / Micro Data 02/20/24 02:40 02/20/24 07:25 Labs: Laboratory Results - last 24 hr 02/19/24 10:20: Lactic Acid 6.0 H* 02/19/24 10:45: Ammonia 35.0 H 02/19/24 13:47: Lactic Acid 5.7 H* 02/19/24 14:26: Hgb 11.6 L, Hct 36.5 L 02/19/24 19:28: Lactic Acid 5.1 H* 02/19/24 19:47: POC Glucose 45 L 02/19/24 20:12: POC Glucose 117 H 02/20/24 00:36: POC Glucose 119 H 02/20/24 02:40: WBC 10.9, RBC 4.39, Hgb 12.9, Hct 41.1, MCV 93.6, MCH 29.4, MCHC 31.4 L, RDW Std Deviation 47.3 H, RDW Coeff of Andrews 13.7, Plt Count 200, MPV 9.7, Immature Gran % (Auto) 0.200, Neut % (Auto) 83.9 H, Lymph % (Auto) 6.5 L, [place] % (Auto) 5.6, Eos % (Auto) 3.3, Baso % (Auto) 0.5, Absolute Neuts (auto) 9.2 H, A bsolute Lymphs (auto) 0.71 L, Nucleated RBC % 0, Differential Comment SCANNED, Sodium 141, Potassium 5.0, Chloride 114 H, Carbon Dioxide 12.0 L, Anion Gap 15, BUN 32 H, Creatinine 2.57 H, Estim Creat Clear Calc 18.90, Est GFR (MDRD) Af Amer 23 L, Est GFR (MDRD) Non-Af 19 L, BUN/Creatinine Ratio 12.5, Glucose 157 H, Calcium 7.5 L 02/20/24 05:05: POC Glucose 145 H 02/20/24 07:25: PT Cancelled 02/20/24 07:25: PT 19.6 H, INR Cancelled 02/20/24 07:25: INR 1.7, APTT 31.1, Sodium 142, Potassium 5.3 H, Chloride 115 H, Carbon Dioxide 13.0 L, Anion Gap 14, BUN 34 H, Creatinine 2.83 H, Estim Creat Clear Calc 17.58, Est GFR (MDRD) Af Amer 21 L, Est GFR (MDRD) Non-Af 17 L, BUN/Creatinine Ratio 12.0, Glucose 149 H, Lactic Acid 6.7 H*, Calcium 7.4 L, T otal Bilirubin 3.20 H, Direct Bilirubin 2.64 H, AST 1936 H, ALT 1713 H, Alkaline Phosphatase 256 H, Ammonia 66.0 H, Troponin I High Sens 56 H, Total Protein 4.6 L, Albumin 2.1 L, Globulin 2.5, Albumin/Globulin Ratio 0.8 L, Lipase 56 Micro: Microbiology 02/20/24 08:10 Nasal Secretion MRSA (PCR) - Final ABG Data ABG results: ABG 02/20/24 09:25 Specimen Type ART Sample Site L Brach pH 7.35 Bicarbonate Actual 12.2 L Total CO2 13 Base Excess -13 L O2 Saturation 95 O2 % 2.0 ABG pCO2 21.8 L ABG pO2 77 O2 Delivery Device Cannula Vent Mode Not entered Imaging Radiology Impression Renal Ultrasound 02/20/24 07:07 IMPRESSION: Left renal cyst. Increased echogenicity of the renal cortex of both kidneys suggestive of bilateral medical renal disease. Electronically Signed: Eulalio Pedroza MD at 9:17 EDT , Chest/Abdomen/Pelvis CT 02/20/24 07:09 IMPRESSION: Heterogeneous enlargement of thyroid gland with the right substernal extension. Bilateral pleural effusions with bibasilar compressive atelectasis and/or infiltrate. Moderate-sized hiatal hernia. Left renal cyst. Findings suggestive of colitis in the left hemicolon with a small amount of free fluid in the right hemipelvis. Electronically Signed: Eulalio Pedroza MD at 9:14 EDT ,
[2024-02-20] MEDS: Norepinephrine 8 MG in 0.9% Normal Saline (250mL Bag) 242 ML 150 MG CONT INF (11:19)
[2024-02-20 11:36] LABS: Reflex Lactate? Y
[2024-02-20 11:39] LABS: Bedside Glucose 128 mg/dL (74-106)
[2024-02-20] MEDS: Ondansetron 4 MG/2 ML Vial IV (12:20)
[2024-02-20] MEDS: Sodium Bicarbonate 150 MEQ in Dextrose 5%-Water (1000mL Bag) 1,000 ML IV ×2 (13:06→20:49)
[2024-02-20] MEDS: Phenylephrine 10 MG in 0.9% Normal Saline (250mL Bag) 249 ML 90 MG CONT INF (13:43)
--- NOTE | 2024-02-20 14:17 | PN_ITS ---
Subjective Subjective Patient seen and examined. Her and son were by her bedside. Patient remained lethargic but she is more responsive today. She remains hypotensive and had an arterial line inserted today for closer monitoring of her blood pressure. She is now on 3 vasopressors namely Daniel-Synephrine, Levophed and phenylephrine. She remains on 2 L of oxygen. She complains of some abdominal pain today. She denies any nausea or vomiting or diarrhea, any fever or chills or shortness of breath. Review of systems otherwise negative. Hemoglobin today is 12.9. Objective Data Objective Data Vital Signs: Vital Signs Temp Pulse Resp BP Pulse Ox O2 Del Method O2 Flow Rate 98.1 F 111 H 28 H 100/57 L 94 Nasal Cannula 2 02/20/24 14:00 02/20/24 14:00 02/20/24 14:00 02/20/24 14:00 02/20/24 14:00 02/20/24 14:00 02/20/24 14:00 Oxygen Flow Rate (L/min) 2 Oxygen Delivery Method Nasal Cannula Weight: 182 lb 0.994 oz Body Mass Index (BMI) 31.1 Intake & Output: Intake and Output for Last 24 Hours 02/18/24 02/19/24 02/20/24 23:59 23:59 23:59 Intake Total 5372.64 / 5440.99 6961.90 / 6961.90 Output Total 200 / 200 90 / 90 Balance 5172.64 / 5240.99 6871.90 / 6871.90 Lab / Micro Data 02/20/24 02:40 02/20/24 07:25 Labs: Laboratory Results - last 24 hr 02/19/24 13:47: Lactic Acid 5.7 H* 02/19/24 14:26: Hgb 11.6 L, Hct 36.5 L 02/19/24 19:28: Lactic Acid 5.1 H* 02/19/24 19:47: POC Glucose 45 L 02/19/24 20:12: POC Glucose 117 H 02/20/24 00:36: POC Glucose 119 H 02/20/24 02:40: WBC 10.9, RBC 4.39, Hgb 12.9, Hct 41.1, MCV 93.6, MCH 29.4, MCHC 31.4 L, RDW Std Deviation 47.3 H, RDW Coeff of Andrews 13.7, Plt Count 200, MPV 9.7, Immature Gran % (Auto) 0.200, Neut % (Auto) 83.9 H, Lymph % (Auto) 6.5 L, [place] % (Auto) 5.6, Eos % (Auto) 3.3, Baso % (Auto) 0.5, Absolute Neuts (auto) 9.2 H, A bsolute Lymphs (auto) 0.71 L, Nucleated RBC % 0, Differential Comment SCANNED, Sodium 141, Potassium 5.0, Chloride 114 H, Carbon Dioxide 12.0 L, Anion Gap 15, BUN 32 H, Creatinine 2.57 H, Estim Creat Clear Calc 18.90, Est GFR (MDRD) Af Amer 23 L, Est GFR (MDRD) Non-Af 19 L, BUN/Creatinine Ratio 12.5, Glucose 157 H, Calcium 7.5 L 02/20/24 05:05: POC Glucose 145 H 02/20/24 07:25: PT Cancelled 02/20/24 07:25: PT 19.6 H, INR Cancelled 02/20/24 07:25: INR 1.7, APTT 31.1, Sodium 142, Potassium 5.3 H, Chloride 115 H, Carbon Dioxide 13.0 L, Anion Gap 14, BUN 34 H, Creatinine 2.83 H, Estim Creat Clear Calc 17.58, Est GFR (MDRD) Af Amer 21 L, Est GFR (MDRD) Non-Af 17 L, BUN/Creatinine Ratio 12.0, Glucose 149 H, Lactic Acid 6.7 H*, Calcium 7.4 L, T otal Bilirubin 3.20 H, Direct Bilirubin 2.64 H, AST 1936 H, ALT 1713 H, Alkaline Phosphatase 256 H, Ammonia 66.0 H, Troponin I High Sens 56 H, Total Protein 4.6 L, Albumin 2.1 L, Globulin 2.5, Albumin/Globulin Ratio 0.8 L, Lipase 56 02/20/24 11:17: POC Glucose 128 H Micro: Microbiology 02/20/24 08:10 Nasal Secretion MRSA (PCR) - Final ABG Data ABG results: ABG 02/20/24 09:25 Specimen Type ART Sample Site L Brach pH 7.35 Bicarbonate Actual 12.2 L Total CO2 13 Base Excess -13 L O2 Saturation 95 O2 % 2.0 ABG pCO2 21.8 L ABG pO2 77 O2 Delivery Device Cannula Vent Mode Not entered Radiography Diagnostic Testing: Radiology Impression Renal Ultrasound 02/20/24 07:07 IMPRESSION: Left renal cyst. Increased echogenicity of the renal cortex of both kidneys suggestive of bilateral medical renal disease. Electronically Signed: Eulalio Pedroza MD at 9:17 EDT , Chest/Abdomen/Pelvis CT 02/20/24 07:09 IMPRESSION: Heterogeneous enlargement of thyroid gland with the right substernal extension. Bilateral pleural effusions with bibasilar compressive atelectasis and/or infiltrate. Moderate-sized hiatal hernia. Left renal cyst. Findings suggestive of colitis in the left hemicolon with a small amount of free fluid in the right hemipelvis. Electronically Signed: Eulalio Pedroza MD at 9:14 EDT , Echocardiogram 02/20/24 07:11 Interpretation Summary The estimated ejection fraction is 55 %. No evidence for diastolic dysfunction. Ordering Physician: Nirav Hall Referring Physician: Precious Aleman Performed By: Moriah Guerra RDCS Physical Exam Const alert Constitutional Narrative: Patient remains very weak and frail, though she is more communicative today. General Appearance: cooperative Orientation / Consciousness: lethargic HEENT normocephalic and head/scalp atraumatic Mouth: dry mucous membranes Eyes PERRL, EOMs intact bilaterally and conjunctivae normal Neck no lymphadenopathy, supple and no JVD Lymph Lymphatic: no lymphadenopathy noted Resp Resp Narrative: mildly diminished breath sounds bibasally, no wheezes or crackles. On 2L of oxygen by nasal canula Cardio regular rate, regular rhythm, S1 normal heart sound, S2 normal heart sound and no murmurs GI normal to inspection, nondistended, normoactive bowel sounds, soft to palpation, non-tender and non-distended Extremity normal to inspection, full ROM and no clubbing, cyanosis or edema Skin Skin Narrative: Patient looks very pale General Skin Exam: no breakdown and turgor normal Neuro CN's II-XII intact bilaterally, no focal motor deficits and no sensory deficits noted Psych Psych Narrative: flat affect, lethargic Assessment & Plan Assessment/Plan (1) Acute upper gastrointestinal bleeding: (2) Acute hypotension: (3) Acute kidney injury: (4) Acute hypernatremia: PLAN: Plan #Shock likely multifactorial * Was admitted with a complaint of hematemesis and worsening shock. She had emergent EGD which showed a Phyllis-Ocy tear which was clipped and treated with heater probe. Low hemoglobin level was 11.6. She was 13.4 on admission is 12.9 today. * Please instruct and respond to fluids she was initially started on Levophed. She is now on Levophed, phenylephrine and vasopressin * She is on IV vancomycin and Zosyn due to concerns about septic shock also. Blood and urine cultures pending. * She complained of abdominal pain today. * She had EGD which as stated showed a Phyllis-Coy tear. * She had CT of the chest abdomen and pelvis today which showed heterogeneous enlargement of the thyroid gland with right substernal extension, bilateral pleural effusions with bibasilar compressive atelectasis and/or infiltrate and moderate size hiatal hernia and findings suggestive of colitis in the left hemicolon with water bottle free fluid in the right hemipelvis. * Continue broad-spectrum antibiotics. Critical care on board. GI also on board. * Procalcitonin was more than 50 so she likely has an infective component also. * #Acute blood loss anemia * Likely due to upper GI bleed. Hemoglobin is up to 12.9 today. * Patient and family do not want transfusion. His son was however willing to donate blood and patient states he is willing to take blood from a family member. However hemoglobin is 12.9-2 preclude the need for blood at this stage. Of note they are not [employer]'s [employer]es but they have their own unique beliefs that preclude her from getting blood. * #Persistent Lactic acidosis: * Lactic acid was elevated but this is to be expected in light of the shock. Blood and urine cultures were ordered to rule out any evidence of infection. * Trend lactic acid. It remains elevated at 6.7 in light of the shock. #DAGOBERTO with anion gap metabolic acidosis. * Creatinine is worsening and is up to 2.83 today. She is also now mildly hyperkalemic with potassium of 5.3. Bicarb is down to 13 and anion gap is 14. * This is likely worsened by the shock. Nephrology consulted. Renal ultrasound showed left renal cyst and increased echogenicity of the renal cortex of both kidneys suggestive of a bilateral medical renal disease. * nephrology consulted; await rec.s * Started on bicarb infusion. Management as per nephrology. * Doran catheter to monitor urine output * Likely due to ischemic ATN. #Ischemic hepatitis * Likely due to shock liver from hypotension and anemia. AST and ALT elevated as well as total bilirubin. * Total bilirubin remains elevated at 3.2. Directly Juan C also elevated and AST and ALT remain markedly elevated. Ammonia level is also elevated at 66 and ALP is also slightly elevated. * Will start patient on lactulose * #Schizophrenia and bipolar disorder: Hold her current medications as she is NPO. DVT prophylaxis: SCDs. No anticoagulation due to GI bleed. CODE STATUS: Full code * Patient and family members counseled extensively about differences. Full code, DNR CC and DNR CCA. Patient was initially alert but she still is lethargic and is not clear whether she really understood what I was asking her. who is her POA therefore decided that he wanted her to be full code. Family was in agreement. Patient made full code. * Total face to face time 20 mins. Charges/Coding Visit Charges Inpatient E&M: 90549 [facility] L3
[2024-02-20 14:30] LABS: Procalcitonin > 50.00 ng/mL (0.00-0.09)
[2024-02-20] MEDS: Phenylephrine 10 MG in 0.9% Normal Saline (250mL Bag) 249 ML 60 MG CONT INF ×2 (16:34→20:07)
[2024-02-20 17:55] LABS: Bedside Glucose 190 mg/dL (74-106)
[2024-02-20 23:39] LABS: Bedside Glucose 197 mg/dL (74-106)
[2024-02-21] VITALS (43 sets, daily range): BP systolic 70–117; BP diastolic 50–74; PULSE 107–122; RESP 18–27; TEMP 36.4–36.6; O2SAT 90–100; BMI 33.1; BMI 34.2
[2024-02-21] MEDS: Norepinephrine 8 MG in 0.9% Normal Saline (250mL Bag) 242 ML 56.3 MG CONT INF ×2 (00:40→04:56)
[2024-02-21] MEDS: CHLORHEXIDINE GLUC 2% CLOTH 1 EACH TOWELETTE TOPICAL (00:40)
[2024-02-21] MEDS: Pantoprazole Sodium 80 MG in 0.9% Normal Saline (100mL Bag) 80 ML 10 MG CONT INF ×3 (02:54→23:31)
[2024-02-21] MEDS: Vasopressin 20 UNITS in 0.9% Normal Saline (50mL Bag) 24 ML 3 UNITS CONT INF (02:54)
[2024-02-21] MEDS: 0.9% Saline Lock 10 ML Syringe IV ×3 (02:55→23:31)
[2024-02-21 03:07] LABS: Absolute Lymphocyte Count 0.69 X10^3/uL (0.83-4.51); Absolute Neutrophil Count 7.5 X10^3/uL (2.0-7.7); Basophil# 0.01 X10^3/uL; Basophil% 0.1 % (0-1); Hematocrit 35.8 % (37-47); Hemoglobin 12.1 g/dL (12.0-15.0); Lymphocyte # 0.69 X10^3/ul (0.83-4.51); Lymphocyte % 7.7 % (19-41); Mean Corp Hgb Conc 33.8 g/dL (32-36); Mean Corpuscular Hgb 29.5 pg (27.0-32.0); Mean Corpuscular Volume 87.3 fL (81-99); Mean Platelet Vol. 10.4 fl (6.2-12.0); Monocyte# 0.72 X10^3/uL; NRBC Flagged by Analyzer 0 % (0-5); Neutrophil # 7.52 X10^3/uL (2.7-7.7); Neutrophil % 83.9 % (47-70); POSITIVE MORPHOLOGY YES; Platelet Count 118 K/mm3 (150-450); RBC Distribution Width CV 14.5 % (11.6-14.6); RBC Distribution Width SD 46.6 fl (35.1-43.9)
[2024-02-21 03:22] LABS: Anion Gap 12 (5-15); BUN 45 mg/dL (7-18); BUN/Creat Ratio 12.1 RATIO (10-20); Calcium,Total 6.6 mg/dL (8.5-10.1); Chloride 105 mmol/L (98-107); Creatinine, Serum 3.73 mg/dL (0.55-1.02); EST Glomerular Filtration Rate 13 mL/min (>60); Est Glom Filt Rate - Afr Amer 15 mL/min (>60); Estimated Creatinine Clearance 13.34 ml/min; Glucose 204 mg/dL (74-106); Potassium 5.5 mmol/L (3.5-5.1); Sodium Level 138 mmol/L (136-145)
[2024-02-21 03:27] LABS: Differential Indicated SCAN CRITERIA MET
[2024-02-21 03:28] LABS: Differential Comment SCANNED
[2024-02-21 03:48] LABS: AST(SGOT) 862 U/L (15-37); Alanine Aminotransfer ALT/SGPT 1130 U/L (13-56); Albumin, Serum 1.9 g/dL (3.2-5.0); Alkaline Phosphatase 185 U/L (45-117); Bilirubin, Direct 3.03 mg/dL (0.00-0.30); Globulin 2.5 g/dL (2.2-4.2); Magnesium 3.6 mg/dL (1.6-2.6); Phosphorus 7.3 mg/dL (2.5-4.9); Protein, Total 4.4 g/dL (6.4-8.2)
[2024-02-21] MEDS: Sodium Bicarbonate 150 MEQ in Dextrose 5%-Water (1000mL Bag) 1,000 ML IV (04:55)
[2024-02-21] MEDS: Hydrocortisone Sod Succinate 100 MG/2 ML Vial 50 MG IV ×3 (04:57→17:18)
[2024-02-21 05:25] LABS: Bedside Glucose 159 mg/dL (74-106)
--- NOTE | 2024-02-21 06:59 | PCM.PN.INT ---
Assessment & Plan Assessment/Plan (1) Acute hypotension: PLAN: Plan RECOMMENDATIONS: 1. Continue to wean Levophed to maintain a mean arterial pressure at or above 65 mmHg. 2. Continue empiric antibiotics. Will plan to discontinue vancomycin today. 3. Continue PPI therapy. 4. Proceed with dialysis support per nephrology recommendations. Stop sodium bicarbonate infusion. 5. Continue stress dose steroids until the patient has been weaned from Levophed. 6. Obtain follow-up ABG. IMPRESSIONS: 1. Undifferentiated shock with persistent lactic acidemia The patient initially presented to the hospital with concern for an upper GI bleed with associated hypotension. She was taken urgently to endoscopy, where a Phyllis-Coy tear was identified. Endoscopic intervention was performed. However, despite the aforementioned interventions, the patient has continued to decompensate from a clinical perspective, with worsening hypotension. Other potential considerations include sepsis and PE. However, the patient's creatinine has worsened, which would preclude the ability to obtain a contrasted CT chest. Echocardiogram revealed intact systolic function without evidence of RV dysfunction or pulmonary hypertension, making large PE rather unlikely. For now, the patient will be continued on empiric antimicrobials. CT imaging the abdomen did reveal nonspecific colitis involving the colon, potentially ischemic in etiology. General surgery is currently following. Continue supportive measures including vasopressors to maintain a mean arterial pressure at or above 65 mmHg. 2. Acute kidney injury Most likely prerenal in etiology in the setting of #1, with evolution to ischemic ATN. In light of the patient's worsening metabolic derangements and renal function, plan to initiate dialysis today per nephrology recommendations. 3. Ischemic hepatitis Improving. Continue to monitor transaminase levels daily. Anticipate improvement with stabilization of hemodynamics. 4. Acute metabolic encephalopathy Most likely related to #1 with accompanying metabolic derangements. Plan to repeat ABG this morning. If mentation worsens, will obtain CT head. 5. History of bipolar disorder/schizophrenia Complicates care, management, recovery and prognosis. Continue supportive measures as noted above. TIME: 35 minutes of critical care time, independent of procedures, was spent addressing the patient's undifferentiated shock, acute kidney injury, ischemic hepatitis, metabolic encephalopathy, review of all data and collaboration with the care team. Subjective Subjective The patient was seen and examined at the bedside this morning. Events from the last 24 hours have been reviewed. The patient is currently afebrile with improved vasopressor requirement over the last 24 hours. The patient has been weaned from phenylephrine and vasopressin, but remains on Levophed at 20 mcg/min to maintain hemodynamic stability. Urine output continues to decline. CT imaging of the abdomen x 2 completed yesterday continues to demonstrate questionable colitis involving the left hemicolon. The patient is overall net +16 L for the hospitalization. White count remains normal this morning. Hemoglobin is stable at 12.1 g/dL. Platelet count is dropped to 118,000. Potassium is elevated at 5.5 with a BUN of 45 and creatinine of 3.73. Total bilirubin is increased at 3.8 AST and ALT have improved to 862 and 1130, respectively. Objective Data Objective Data The patient's most recent lab work, culture data and imaging studies have all been personally reviewed. Surface echocardiogram demonstrated normal LV size and function with an ejection fraction of 55%. There was no evidence of RV dysfunction or pulmonary hypertension. Blood and urine cultures are pending. Vital Signs: Vital Signs Temp Pulse Resp BP Pulse Ox O2 Del Method O2 Flow Rate 97.7 F L 111 H 26 H 107/65 94 Nasal Cannula 2 02/21/24 06:00 02/21/24 06:00 02/21/24 06:00 02/21/24 06:45 02/21/24 06:00 02/21/24 06:00 02/21/24 06:00 Oxygen Flow Rate (L/min) 2 Oxygen Delivery Method Nasal Cannula Weight: 194 lb 0.108 oz Body Mass Index (BMI) 33.1 Intake & Output: Intake and Output for Last 24 Hours 02/19/24 02/20/24 02/21/24 23:59 23:59 23:59 Intake Total 5372.64 / 5440.99 9277.46 / 9351.01 1742.50 / 1742.50 Output Total 200 / 200 110 / 110 45 / 45 Balance 5172.64 / 5240.99 9167.46 / 9241.01 1697.50 / 1697.50 Lab / Micro Data Attestation: I reviewed the patient's lab results. 02/21/24 03:00 02/21/24 03:00 Labs: Laboratory Results - last 24 hr 02/20/24 07:25: PT Cancelled 02/20/24 07:25: PT 19.6 H, INR Cancelled 02/20/24 07:25: INR 1.7, APTT 31.1, Sodium 142, Potassium 5.3 H, Chloride 115 H, Carbon Dioxide 13.0 L, Anion Gap 14, BUN 34 H, Creatinine 2.83 H, Estim Creat Clear Calc 17.58, Est GFR (MDRD) Af Amer 21 L, Est GFR (MDRD) Non-Af 17 L, BUN/Creatinine Ratio 12.0, Glucose 149 H, Lactic Acid 6.7 H*, Calcium 7.4 L, Total Bilirubin 3.20 H, Direct Bilirubin 2.64 H, AST 1936 H, ALT 1713 H, Alkaline Phosphatase 256 H, Ammonia 66.0 H, Troponin I High Sens 56 H, Total Protein 4.6 L, Albumin 2.1 L, Globulin 2.5, Albumin/Globulin Ratio 0.8 L, Lipase 56, Procalcitonin > 50.00 H 02/20/24 11:17: POC Glucose 128 H 02/20/24 17:31: POC Glucose 190 H 02/20/24 23:18: POC Glucose 197 H 02/21/24 03:00: WBC 9.0, RBC 4.10 L, Hgb 12.1, Hct 35.8 L, MCV 87.3 D, MCH 29.5, MCHC 33.8 D, RDW Std Deviation 46.6 H, RDW Coeff of Andrews 14.5, Plt Count 118 L, MPV 10.4, Immature Gran % (Auto) 0.300, Neut % (Auto) 83.9 H, Lymph % (Auto) 7.7 L, [place] % (Auto) 8.0, Eos % (Auto) 0.0, Baso % (Auto) 0.1, Absolute Neuts (auto) 7.5, Absolute Lymphs (auto) 0.69 L, Nucleated RBC % 0, Differential Comment SCANNED, Sodium 138, Potassium 5.5 H, Chloride 105, Carbon Dioxide 21.0, Anion Gap 12, BUN 45 H, Creatinine 3.73 H, Estim Creat Clear Calc 13.34, Est GFR (MDRD) Af Amer 15 L, Est GFR (MDRD) Non-Af 13 L, BUN/Creatinine Ratio 12.1, Glucose 204 H, Calcium 6.6 L, Phosphorus 7.3 H, Magnesium 3.6 H, Total Bilirubin 3.80 H, Direct Bilirubin 3.03 H, AST 862 H, ALT 1130 H, Alkaline Phosphatase 185 H, Total Protein 4.4 L, Albumin 1.9 L, Globulin 2.5 02/21/24 05:08: POC Glucose 159 H Micro: Microbiology 02/20/24 08:10 Nasal Secretion MRSA (PCR) - Final ABG Data ABG results: ABG 02/20/24 09:25 Specimen Type ART Sample Site L Brach pH 7.35 Bicarbonate Actual 12.2 L Total CO2 13 Base Excess -13 L O2 Saturation 95 O2 % 2.0 ABG pCO2 21.8 L ABG pO2 77 O2 Delivery Device Cannula Vent Mode Not entered Radiography Diagnostic Testing: Radiology Impression Renal Ultrasound 02/20/24 07:07 IMPRESSION: Left renal cyst. Increased echogenicity of the renal cortex of both kidneys suggestive of bilateral medical renal disease. Electronically Signed: Eulalio Pedroza MD at 9:17 EDT , Chest/Abdomen/Pelvis CT 02/20/24 07:09 IMPRESSION: Heterogeneous enlargement of thyroid gland with the right substernal extension. Bilateral pleural effusions with bibasilar compressive atelectasis and/or infiltrate. Moderate-sized hiatal hernia. Left renal cyst. Findings suggestive of colitis in the left hemicolon with a small amount of free fluid in the right hemipelvis. Electronically Signed: Eulalio Pedroza MD at 9:14 EDT , Echocardiogram 02/20/24 07:11 Interpretation Summary The estimated ejection fraction is 55 %. No evidence for diastolic dysfunction. Ordering Physician: Nirav Hall Referring Physician: Precious Aleman Performed By: Moriah Guerra, RDCS Abdomen CT 02/20/24 10:53 IMPRESSION: Questionable colitis involving the left hemicolon as described. Small amount of perihepatic and perisplenic fluid. Status post cholecystectomy. Small bilateral pleural effusions with bibasilar atelectasis and/or infiltration. Electronically Signed: Eulalio Pedroza MD at 15:19 EDT , Physical Exam Const General Appearance: lethargic and ill appearing HEENT normocephalic and head/scalp atraumatic Eyes PERRL, EOMs intact bilaterally and conjunctivae normal Neck supple General: trachea midline Chest inspection of chest normal Resp Effort and Inspection: tachypneic Auscultation: diminished lung sounds Cardio S1 normal heart sound and S2 normal heart sound Rate: tachycardic GI GI Narrative: Nonfocal abdominal tenderness still present Extremity no clubbing, cyanosis or edema Skin no rashes or lesions noted Neuro CN's II-XII intact bilaterally and no focal motor deficits Psych Mood & Affect: flat affect Charges/Coding Procedures Hospitalists Procedures: 92259 Critical Care 1st Hr
--- NOTE | 2024-02-21 07:47 | PN.SURG_ITS ---
Subjective Subjective Patient still reports some abdominal pain Objective Data Objective Data Vital Signs: Vital Signs Temp Pulse Resp BP Pulse Ox O2 Del Method O2 Flow Rate 97.7 F L 109 H 24 H 99/60 95 Nasal Cannula 2 02/21/24 06:00 02/21/24 07:00 02/21/24 07:00 02/21/24 07:00 02/21/24 07:00 02/21/24 07:00 02/21/24 07:00 Oxygen Flow Rate (L/min) 2 Oxygen Delivery Method Nasal Cannula Weight: 194 lb 0.108 oz Body Mass Index (BMI) 33.1 Intake & Output: Intake and Output for Last 24 Hours 02/19/24 02/20/24 02/21/24 23:59 23:59 23:59 Intake Total 5372.64 / 5440.99 9277.46 / 9351.01 1751.88 / 1751.88 Output Total 200 / 200 110 / 110 45 / 45 Balance 5172.64 / 5240.99 9167.46 / 9241.01 1706.88 / 1706.88 Lab / Micro Data 02/21/24 03:00 02/21/24 03:00 Labs: Laboratory Results - last 24 hr 02/20/24 07:25: PT 19.6 H, INR 1.7, APTT 31.1, Sodium 142, Potassium 5.3 H, C hloride 115 H, Carbon Dioxide 13.0 L, Anion Gap 14, BUN 34 H, Creatinine 2.83 H, Estim Creat Clear Calc 17.58, Est GFR (MDRD) Af Amer 21 L, Est GFR (MDRD) Non-Af 17 L, BUN/Creatinine Ratio 12.0, Glucose 149 H, Lactic Acid 6.7 H*, Calcium 7.4 L, Total Bilirubin 3.20 H, Direct Bilirubin 2.64 H, AST 1936 H, ALT 1713 H, A lkaline Phosphatase 256 H, Ammonia 66.0 H, Troponin I High Sens 56 H, Total Protein 4.6 L, Albumin 2.1 L, Globulin 2.5, Albumin/Globulin Ratio 0.8 L, Lipase 56, Procalcitonin > 50.00 H 02/20/24 11:17: POC Glucose 128 H 02/20/24 17:31: POC Glucose 190 H 02/20/24 23:18: POC Glucose 197 H 02/21/24 03:00: WBC 9.0, RBC 4.10 L, Hgb 12.1, Hct 35.8 L, MCV 87.3 D, MCH 29.5, MCHC 33.8 D, RDW Std Deviation 46.6 H, RDW Coeff of Andrews 14.5, Plt Count 118 L, MPV 10.4, Immature Gran % (Auto) 0.300, Neut % (Auto) 83.9 H, Lymph % (Auto) 7.7 L, [place] % (Auto) 8.0, Eos % (Auto) 0.0, Baso % (Auto) 0.1, Absolute Neuts (auto) 7.5, Absolute Lymphs (auto) 0.69 L, Nucleated RBC % 0, Differential Comment SCANNED, Sodium 138, Potassium 5.5 H, Chloride 105, Carbon Dioxide 21.0, Anion Gap 12, BUN 45 H, Creatinine 3.73 H, Estim Creat Clear Calc 13.34, Est GFR (MDRD) Af Amer 15 L, Est GFR (MDRD) Non-Af 13 L, BUN/Creatinine Ratio 12.1, G lucose 204 H, Calcium 6.6 L, Phosphorus 7.3 H, Magnesium 3.6 H, Total Bilirubin 3.80 H, Direct Bilirubin 3.03 H, AST 862 H, ALT 1130 H, Alkaline Phosphatase 185 H, Total Protein 4.4 L, Albumin 1.9 L, Globulin 2.5 02/21/24 05:08: POC Glucose 159 H Micro: Microbiology 02/20/24 08:10 Nasal Secretion MRSA (PCR) - Final ABG Data ABG results: ABG 02/20/24 09:25 Specimen Type ART Sample Site L Brach pH 7.35 Bicarbonate Actual 12.2 L Total CO2 13 Base Excess -13 L O2 Saturation 95 O2 % 2.0 ABG pCO2 21.8 L ABG pO2 77 O2 Delivery Device Cannula Vent Mode Not entered Radiography Diagnostic Testing: Radiology Impression Renal Ultrasound 02/20/24 07:07 IMPRESSION: Left renal cyst. Increased echogenicity of the renal cortex of both kidneys suggestive of bilateral medical renal disease. Electronically Signed: Eulalio Pedroza MD at 9:17 EDT , Chest/Abdomen/Pelvis CT 02/20/24 07:09 IMPRESSION: Heterogeneous enlargement of thyroid gland with the right substernal extension. Bilateral pleural effusions with bibasilar compressive atelectasis and/or infiltrate. Moderate-sized hiatal hernia. Left renal cyst. Findings suggestive of colitis in the left hemicolon with a small amount of free fluid in the right hemipelvis. Electronically Signed: Eulalio Pedroza MD at 9:14 EDT , Echocardiogram 02/20/24 07:11 Interpretation Summary The estimated ejection fraction is 55 %. No evidence for diastolic dysfunction. Ordering Physician: Nirav Hall Referring Physician: Precious Aleman Performed By: Moriah Guerra [facility] Abdomen CT 02/20/24 10:53 IMPRESSION: Questionable colitis involving the left hemicolon as described. Small amount of perihepatic and perisplenic fluid. Status post cholecystectomy. Small bilateral pleural effusions with bibasilar atelectasis and/or infiltration. Electronically Signed: Eulalio Pedroza MD at 15:19 EDT , Physical Exam Const no apparent distress Resp normal respiratory effort Cardio regular rate and regular rhythm GI soft to palpation Inspection: abdominal distention Palpation: tender Assessment & Plan Assessment/Plan (1) Acute kidney injury: (2) Ischemic colitis: PLAN: Plan The patient has possible ischemic colitis of the left colon. She is still having diffuse abdominal pain with distention. Her white count remains normal. I believe she may be having some ischemia but I do not believe she has any bowel and she is now down to 1 pressor and her liver enzymes are improving. Continue conservative management at this time. Deacon Peter MD Pager: [facility] [address] [place] [address], [address] [place] [address] Office:
--- NOTE | 2024-02-21 08:13 | RAD_ITS ---
STUDY: X-RAY CHEST REASON FOR EXAM: Female, 78 years old. Right IJ Temporary Hemodialysis Cath inserted TECHNIQUE: Single AP portable view of the chest. COMPARISON: Comparison is made with prior study dated February 19, 2024. FINDINGS: A right-sided internal jugular temporary hemodialysis catheter has been placed. The tip is in the midportion of the superior vena cava. A right-sided PICC line catheter has been placed with the tip at the junction of the superior vena cava and right atrium. EKG electrodes are seen. Blunting of both cost phrenic angles with increased markings at the lung bases from at the left base suggestive of left infiltrate and/or atelectasis. Elevation of the right hemidiaphragm with increased markings at the right lung base. Findings suggest mild vascular congestion. Normal size heart. Normal mediastinum and estelita. Normal visualized pulmonary arteries. Normal visualized aortic arch and descending thoracic aorta. There are diffuse degenerative changes of the visualized thoracic spine. Normal visualized ribs, clavicles, and shoulders. Surgical clips are seen in the epigastric region. RAD/CXR for Line Placement IMPRESSION: The tip of the right internal jugular hemodialysis catheter is in the midportion of the superior vena cava. A right-sided PICC line catheter is seen with the tip in the right atrium. Findings suggestive of bibasilar atelectasis and/or early infiltrates with blunting of both costophrenic angles worse at the left lung base. Findings suggestive of a mild degree of CHF. Electronically Signed: Eulalio Pedroza MD at 8:37 EDT ,
[2024-02-21 08:46] LABS: Base Excess -1 mmol/L (-2 to +2); Blood Gas Specimen Type ART; Mode Not entered; O2 Delivery Device Cannula; PO2 83 mmHG (75-100); SITE Art Line; SO2 97 % (95-99); Total Carbon Dioxide 24 mmol/L; pCO2 31.9 mmHg (35-45); pH 7.47 (7.35-7.45)
--- NOTE | 2024-02-21 08:47 | PRO.PCM_ITS ---
Procedure Report Date of Procedure: 02/21/24 Temporary Hemodialysis Catheter Indication: Need for hemodialysis support Consent was obtained from: Spouse A time-out was completed verifying correct patient, procedure, site, positioning, and special equipment if applicable. The patient was placed in a dependent position appropriate for hemodialysis line placement based on the vein to be cannulated. The patient's right neck was prepped and draped in the sterile fashion. 1% Lidocaine was used and emphasized the surrounding skin area. A 16 cm catheter was introduced into the right IJ, following sequential dilations, using the Seldinger technique and under ultrasound guidance. The catheter was threaded smoothly over the guidewire and appropriate blood return was obtained. Each lumen of the catheter was evacuated of air and flushed with sterile saline. The catheter was then sutured in place to the skin and a st erile dressing applied. Chest x-ray to confirm appropriate positioning is pending. ULTRASOUND GUIDANCE STATEMENT (Vascular Access): I performed an ultrasound image acquisition and interpretation for needle placement during the procedure. The vessel was identified and was found to be free of thrombosis by compression technique. A safe point of entry was marked at the skin in an angle for axis w as determined. The needle was guided by obtaining free-flowing fluid and by real-time visualization. Procedures Hospitalists Procedures: 11065 Insert Non-tunnel CV Cath
--- NOTE | 2024-02-21 09:19 | SEPSISATNOTE ---
Sepsis Attestation Date exam was performed: 02/19/24 Time exam was performed: 13:30 Possible Source of Sepsis: Pulmonary Sepsis Organ Dysfunction Criteria Present: SBP < 90 mmHg or MAP < 65 mmHg, Creatinine > 2.0 mg/dL and Lactic Acid > 2 mmol/L
[2024-02-21] MEDS: Piperacil/Tazobactam 3.375 GM in 0.9% Normal Saline (50mL MB+) 50 ML IV ×2 (09:30→21:22)
[2024-02-21] MEDS: PUREFLOW B SOLUTION 2K 5,000 ML BAG 9 BAG PF (09:34)
[2024-02-21 09:38] LABS: Hematocrit 34.1 % (37-47); Hemoglobin 11.8 g/dL (12.0-15.0); Mean Corp Hgb Conc 34.6 g/dL (32-36); Mean Corpuscular Volume 86.8 fL (81-99); Mean Platelet Vol. 9.5 fl (6.2-12.0); Platelet Count 108 K/mm3 (150-450); RBC Distribution Width CV 14.6 % (11.6-14.6); RBC Distribution Width SD 46.5 fl (35.1-43.9); Red Blood Count 3.93 M/mm3 (4.2-5.4); White Blood Count 8.9 K/mm3 (4.4-11.0)
--- NOTE | 2024-02-21 10:14 | PN.RENAL_ITS ---
Subjective Subjective Appears to be in discomfort. Abdominal pain/tenderness. Not much urine output. Creatinine worsening. Potassium increasing. Bicarbonate better. Surgery note reviewed. CT abdomen with possible colitis, may be a component of ischemic colitis. WBC appears to be stabilizing. Objective Data Objective Data Vital Signs: Vital Signs Temp Pulse Resp BP Pulse Ox O2 Del Method O2 Flow Rate 97.7 F L 121 H 23 H 109/55 L 95 Nasal Cannula 2 02/21/24 08:00 02/21/24 08:00 02/21/24 08:00 02/21/24 08:00 02/21/24 08:00 02/21/24 08:00 02/21/24 08:00 Oxygen Flow Rate (L/min) 2 Oxygen Delivery Method Nasal Cannula Weight: 88 kg Body Mass Index (BMI) 33.1 Intake & Output: Intake and Output for Last 24 Hours 02/19/24 02/20/24 02/21/24 23:59 23:59 23:59 Intake Total 5372.64 / 5440.99 9277.46 / 9351.01 2376.38 / 2376.38 Output Total 200 / 200 110 / 110 45 / 45 Balance 5172.64 / 5240.99 9167.46 / 9241.01 2331.38 / 2331.38 Lab / Micro Data 02/21/24 09:30 02/21/24 03:00 Labs: Laboratory Results - last 24 hr 02/20/24 07:25: Procalcitonin > 50.00 H 02/20/24 11:17: POC Glucose 128 H 02/20/24 17:31: POC Glucose 190 H 02/20/24 23:18: POC Glucose 197 H 02/21/24 03:00: WBC 9.0, RBC 4.10 L, Hgb 12.1, Hct 35.8 L, MCV 87.3 D, MCH 29.5, MCHC 33.8 D, RDW Std Deviation 46.6 H, RDW Coeff of Andrews 14.5, Plt Count 118 L, MPV 10.4, Immature Gran % (Auto) 0.300, Neut % (Auto) 83.9 H, Lymph % (Auto) 7.7 L, [place] % (Auto) 8.0, Eos % (Auto) 0.0, Baso % (Auto) 0.1, Absolute Neuts (auto) 7.5, Absolute Lymphs (auto) 0.69 L, Nucleated RBC % 0, Differential Comment SCANNED, Sodium 138, Potassium 5.5 H, Chloride 105, Carbon Dioxide 21.0, Anion Gap 12, BUN 45 H, Creatinine 3.73 H, Estim Creat Clear Calc 13.34, Est GFR (MDRD) Af Amer 15 L, Est GFR (MDRD) Non-Af 13 L, BUN/Creatinine Ratio 12.1, G lucose 204 H, Calcium 6.6 L, Phosphorus 7.3 H, Magnesium 3.6 H, Total Bilirubin 3.80 H, Direct Bilirubin 3.03 H, AST 862 H, ALT 1130 H, Alkaline Phosphatase 185 H, Total Protein 4.4 L, Albumin 1.9 L, Globulin 2.5 02/21/24 05:08: POC Glucose 159 H 02/21/24 09:30: WBC 8.9, RBC 3.93 L, Hgb 11.8 L, Hct 34.1 L, MCV 86.8, MCH 30.0, MCHC 34.6, RDW Std Deviation 46.5 H, RDW Coeff of Andrews 14.6, Plt Count 108 L, MPV 9.5 Micro: Microbiology 02/19/24 17:40 Urine Catheter - Emmanuel Urine Culture - Preliminary Culture exhibits no growth. 02/20/24 08:10 Nasal Secretion MRSA (PCR) - Final ABG Data ABG results: ABG 02/21/24 08:42 Specimen Type ART Sample Site Art Line pH 7.47 H Bicarbonate Actual 23.0 Total CO2 24 Base Excess -1 O2 Saturation 97 O2 % 4.0 ABG pCO2 31.9 L ABG pO2 83 O2 Delivery Device Cannula Vent Mode Not entered Radiography Diagnostic Testing: Radiology Impression Echocardiogram 02/20/24 07:11 Interpretation Summary The estimated ejection fraction is 55 %. No evidence for diastolic dysfunction. Ordering Physician: Nirav Hall Referring Physician: Precious Aleman Performed By: Moriah Guerra, [facility] Abdomen CT 02/20/24 10:53 IMPRESSION: Questionable colitis involving the left hemicolon as described. Small amount of perihepatic and perisplenic fluid. Status post cholecystectomy. Small bilateral pleural effusions with bibasilar atelectasis and/or infiltration. Electronically Signed: Eulalio Pedroza MD at 15:19 EDT , Chest X-Ray 02/21/24 08:13 IMPRESSION: The tip of the right internal jugular hemodialysis catheter is in the midportion of the superior vena cava. A right-sided PICC line catheter is seen with the tip in the right atrium. Findings suggestive of bibasilar atelectasis and/or early infiltrates with blunting of both costophrenic angles worse at the left lung base. Findings suggestive of a mild degree of CHF. Electronically Signed: Eulalio Pedroza MD at 8:37 EDT , Physical Exam Narrative no obvious distress no pallor no icterus no JVD s1s2 no murmurs lungs clear abdomen tender no edema no cyanosis emmanuel + Assessment & Plan Assessment/Plan (1) Acute kidney injury: PLAN: Acute renal failure. Presumably ATN due to septic shock. Remains anuric. No hydronephrosis on CT. Worsening azotemia, hyperkalemia. Will need renal replacement therapy. Pressor requirements are down significantly compared to yesterday but she is still on about 15 mcg of Levophed. We will plan to start CRRT today. Discussed with ICU attending. Hyperkalemia. We will start CRRT on 2K solutions Lactic acidosis. Presumably of colon origin. Surgery note reviewed. No plans for intervention since she is clinically better. Okay to repeat a CT abdomen with contrast if needed since she is on dialysis now. Updated at bedside
--- NOTE | 2024-02-21 10:19 | PN_ITS ---
Subjective Subjective Patient seen and examined. She remains very weak and lethargic. Her was by her bedside. She is tachycardic and tachypneic today. Her Cr has worsened and trended upwards. Nephrology is planning CRRT today. Hb is 11.8. Objective Data Objective Data Vital Signs: Vital Signs Temp Pulse Resp BP Pulse Ox O2 Del Method O2 Flow Rate 97.7 F L 121 H 23 H 109/55 L 95 Nasal Cannula 2 02/21/24 08:00 02/21/24 08:00 02/21/24 08:00 02/21/24 08:00 02/21/24 08:00 02/21/24 08:00 02/21/24 08:00 Oxygen Flow Rate (L/min) 2 Oxygen Delivery Method Nasal Cannula Weight: 194 lb 0.108 oz Body Mass Index (BMI) 33.1 Intake & Output: Intake and Output for Last 24 Hours 02/19/24 02/20/24 02/21/24 23:59 23:59 23:59 Intake Total 5372.64 / 5440.99 9277.46 / 9351.01 2376.38 / 2376.38 Output Total 200 / 200 110 / 110 45 / 45 Balance 5172.64 / 5240.99 9167.46 / 9241.01 2331.38 / 2331.38 Lab / Micro Data 02/21/24 09:30 02/21/24 03:00 Labs: Laboratory Results - last 24 hr 02/20/24 07:25: Procalcitonin > 50.00 H 02/20/24 11:17: POC Glucose 128 H 02/20/24 17:31: POC Glucose 190 H 02/20/24 23:18: POC Glucose 197 H 02/21/24 03:00: WBC 9.0, RBC 4.10 L, Hgb 12.1, Hct 35.8 L, MCV 87.3 D, MCH 29.5, MCHC 33.8 D, RDW Std Deviation 46.6 H, RDW Coeff of Andrews 14.5, Plt Count 118 L, MPV 10.4, Immature Gran % (Auto) 0.300, Neut % (Auto) 83.9 H, Lymph % (Auto) 7.7 L, [place] % (Auto) 8.0, Eos % (Auto) 0.0, Baso % (Auto) 0.1, Absolute Neuts (auto) 7.5, Absolute Lymphs (auto) 0.69 L, Nucleated RBC % 0, Differential Comment SCANNED, Sodium 138, Potassium 5.5 H, Chloride 105, Carbon Dioxide 21.0, Anion Gap 12, BUN 45 H, Creatinine 3.73 H, Estim Creat Clear Calc 13.34, Est GFR (MDRD) Af Amer 15 L, Est GFR (MDRD) Non-Af 13 L, BUN/Creatinine Ratio 12.1, G lucose 204 H, Calcium 6.6 L, Phosphorus 7.3 H, Magnesium 3.6 H, Total Bilirubin 3.80 H, Direct Bilirubin 3.03 H, AST 862 H, ALT 1130 H, Alkaline Phosphatase 185 H, Total Protein 4.4 L, Albumin 1.9 L, Globulin 2.5 02/21/24 05:08: POC Glucose 159 H 02/21/24 09:30: WBC 8.9, RBC 3.93 L, Hgb 11.8 L, Hct 34.1 L, MCV 86.8, MCH 30.0, MCHC 34.6, RDW Std Deviation 46.5 H, RDW Coeff of Andrews 14.6, Plt Count 108 L, MPV 9.5 Micro: Microbiology 02/19/24 17:40 Urine Catheter - Doran Urine Culture - Preliminary Culture exhibits no growth. 02/20/24 08:10 Nasal Secretion MRSA (PCR) - Final ABG Data ABG results: ABG 02/21/24 08:42 Specimen Type ART Sample Site Art Line pH 7.47 H Bicarbonate Actual 23.0 Total CO2 24 Base Excess -1 O2 Saturation 97 O2 % 4.0 ABG pCO2 31.9 L ABG pO2 83 O2 Delivery Device Cannula Vent Mode Not entered Radiography Diagnostic Testing: Radiology Impression Echocardiogram 02/20/24 07:11 Interpretation Summary The estimated ejection fraction is 55 %. No evidence for diastolic dysfunction. Ordering Physician: Brown, Nirav Referring Physician: Precious Aleman Performed By: Moriah Guerra, RDCS Abdomen CT 02/20/24 10:53 IMPRESSION: Questionable colitis involving the left hemicolon as described. Small amount of perihepatic and perisplenic fluid. Status post cholecystectomy. Small bilateral pleural effusions with bibasilar atelectasis and/or infiltration. Electronically Signed: Eulalio Pedroza MD at 15:19 EDT , Chest X-Ray 02/21/24 08:13 IMPRESSION: The tip of the right internal jugular hemodialysis catheter is in the midportion of the superior vena cava. A right-sided PICC line catheter is seen with the tip in the right atrium. Findings suggestive of bibasilar atelectasis and/or early infiltrates with blunting of both costophrenic angles worse at the left lung base. Findings suggestive of a mild degree of CHF. Electronically Signed: Eulalio Pedroza MD at 8:37 EDT , Physical Exam Const alert Constitutional Narrative: Patient remains very weak and frail and lethargic. General Appearance: cooperative Orientation / Consciousness: disoriented and lethargic HEENT normocephalic and head/scalp atraumatic Eyes PERRL, EOMs intact bilaterally and conjunctivae normal Neck no lymphadenopathy, supple and no JVD Lymph Lymphatic: no lymphadenopathy noted Resp normal respiratory effort, no retractions, no use of accessory muscles and clear to auscultation bilaterally Resp Narrative: mildly diminished breath sounds bibasally, no wheezes or crackles. On 2L of oxygen by nasal canula Cardio regular rate, regular rhythm, S1 normal heart sound, S2 normal heart sound and no murmurs GI normal to inspection, nondistended, normoactive bowel sounds, soft to palpation and non-distended GI Narrative: moderate generalised tenderness, with guarding but no rebound tenderness. Extremity normal to inspection, full ROM, normal capillary refill and no clubbing, cyanosis or edema Skin Skin Narrative: Patient looks very pale General Skin Exam: no breakdown and turgor normal Neuro Neuro Narrative: very weak and lethargic Psych Psych Narrative: flat affect, lethargic Assessment & Plan Assessment/Plan (1) Acute upper gastrointestinal bleeding: (2) Acute hypotension: (3) Acute kidney injury: (4) Acute hypernatremia: PLAN: Plan #Shock likely multifactorial * Was admitted with a complaint of hematemesis and worsening shock. She had emergent EGD which showed a Phyllis-Coy tear which was clipped and treated with heater probe. Low hemoglobin level was 11.6. She was 13.4 on admission is 12.9 today. * Please instruct and respond to fluids she was initially started on Levophed. She is now on Levophed, phenylephrine and vasopressin * She is on IV vancomycin and Zosyn due to concerns about septic shock also. Blood and urine cultures pending. * She had EGD which as stated showed a Phyllis-Coy tear. * She had CT of the chest abdomen and pelvis which showed heterogeneous enlargement of the thyroid gland with right substernal extension, bilateral pleural effusions with bibasilar compressive atelectasis and/or infiltrate and moderate size hiatal hernia and findings suggestive of colitis in the left hemicolon with water bottle free fluid in the right hemipelvis. * urine cultures show no growth. Blood cultures are pending. * Procalcitonin was more than 50 so she likely has an infective component also. * Now down to only Levophed; vasopressin and phenylephrine have been discontinued. * general surgery on board for possible ischemic bowel as CT scan showed possible left sided colitis. * #Possible ischemic colitis * CT findings as above. * general surgery on board and per their documentation, they are unsure of the etiology of the shock. To get an oral CT scan to evaluate the colon and or small bowel. Per general surgery, even f there are signs of ischemia, they are unsure if she would sruvive the surgery. General surgery recommends conservative management for now. * #Acute blood loss anemia * Likely due to upper GI bleed. Hb has been stable. * Patient and family do not want transfusion. Her son was however willing to donate blood and patient states he is willing to take blood from a family member. * Of note they are not Jehov[employer]'s Witnesses but they have their own unique beliefs that preclude her from getting blood. * #Persistent Lactic acidosis: * Lactic acid was elevated but this is to be expected in light of the shock. * Urine cultures negative; blood cultures still pending. * Trend lactic acid. It still remains elevated. #DAGOBERTO with anion gap metabolic acidosis. * Creatinine is worsening and is up to 3.73 today. She is also now mildly hyperkalemic with potassium of 5.3. Bicarb is down to 13 and anion gap is 14. * This is likely worsened by the shock. Nephrology consulted. Renal ultrasound showed left renal cyst and increased echogenicity of the renal cortex of both kidneys suggestive of a bilateral medical renal disease. * nephrology on board. To start CRRT today. * had a temporary dialysis catheter inserted. Is anuric. * On bicarb infusion. Management as per nephrology. * Doran catheter to monitor urine output * Likely due to ischemic ATN. #Ischemic hepatitis * Likely due to shock liver from hypotension and anemia. AST and ALT elevated as well as total bilirubin. * total bilirubin is up to 3.8 toeay. Direct bilirubin is up to 3.03; AST and ALT as well as ALP have started trending downwards. * gastroenterology on board. * #Schizophrenia and bipolar disorder: Hold her current medications as she is NPO. DVT prophylaxis: SCDs. No anticoagulation due to GI bleed. CODE STATUS: Full code * P Charges/Coding Visit Charges Inpatient E&M: 73007 Subs Hosp L3
[2024-02-21] MEDS: cloZAPine 100 MG TABLET PO (10:39)
[2024-02-21] MEDS: Norepinephrine 8 MG in 0.9% Normal Saline (250mL Bag) 242 ML 18.8 MG CONT INF (12:36)
[2024-02-21 15:50] LABS: Albumin, Serum 1.8 g/dL (3.2-5.0); BUN 37 mg/dL (7-18); BUN/Creat Ratio 12.2 RATIO (10-20); Calcium,Total 7.3 mg/dL (8.5-10.1); Chloride 105 mmol/L (98-107); Creatinine, Serum 3.04 mg/dL (0.55-1.02); EST Glomerular Filtration Rate 16 mL/min (>60); Est Glom Filt Rate - Afr Amer 19 mL/min (>60); Estimated Creatinine Clearance 16.91 ml/min; Glucose 89 mg/dL (74-106); Phosphorus 5.5 mg/dL (2.5-4.9); Potassium 4.8 mmol/L (3.5-5.1); Sodium Level 138 mmol/L (136-145)
--- NOTE | 2024-02-21 16:28 | PN.GI_ITS ---
Subjective Subjective Patient is still very weak and lethargic. She denies any abdominal pain. Appetite is very poor. Objective Data Objective Data Vital Signs: Vital Signs Temp Pulse Resp BP Pulse Ox O2 Del Method O2 Flow Rate 97.7 F L 119 H 19 H 99/54 L 96 Nasal Cannula 2 02/21/24 15:00 02/21/24 15:00 02/21/24 15:00 02/21/24 15:00 02/21/24 15:00 02/21/24 15:27 02/21/24 15:27 Oxygen Flow Rate (L/min) 2 Oxygen Delivery Method Nasal Cannula Weight: 194 lb 0.108 oz Body Mass Index (BMI) 34.2 Intake & Output: Intake and Output for Last 24 Hours 02/19/24 02/20/24 02/21/24 23:59 23:59 23:59 Intake Total 5372.64 / 5440.99 9277.46 / 9351.01 2647.48 / 2647.48 Output Total 200 / 200 110 / 110 45 / 45 Balance 5172.64 / 5240.99 9167.46 / 9241.01 2602.48 / 2602.48 Lab / Micro Data 02/21/24 09:30 02/21/24 13:15 Labs: Laboratory Results - last 24 hr 02/20/24 17:31: POC Glucose 190 H 02/20/24 23:18: POC Glucose 197 H 02/21/24 03:00: WBC 9.0, RBC 4.10 L, Hgb 12.1, Hct 35.8 L, MCV 87.3 D, MCH 29.5, MCHC 33.8 D, RDW Std Deviation 46.6 H, RDW Coeff of Andrews 14.5, Plt Count 118 L, MPV 10.4, Immature Gran % (Auto) 0.300, Neut % (Auto) 83.9 H, Lymph % (Auto) 7.7 L, [place] % (Auto) 8.0, Eos % (Auto) 0.0, Baso % (Auto) 0.1, Absolute Neuts (auto) 7.5, Absolute Lymphs (auto) 0.69 L, Nucleated RBC % 0, Differential Comment SCANNED, Sodium 138, Potassium 5.5 H, Chloride 105, Carbon Dioxide 21.0, Anion Gap 12, BUN 45 H, Creatinine 3.73 H, Estim Creat Clear Calc 13.34, Est GFR (MDRD) Af Amer 15 L, Est GFR (MDRD) Non-Af 13 L, BUN/Creatinine Ratio 12.1, G lucose 204 H, Calcium 6.6 L, Phosphorus 7.3 H, Magnesium 3.6 H, Total Bilirubin 3.80 H, Direct Bilirubin 3.03 H, AST 862 H, ALT 1130 H, Alkaline Phosphatase 185 H, Total Protein 4.4 L, Albumin 1.9 L, Globulin 2.5 02/21/24 05:08: POC Glucose 159 H 02/21/24 09:30: WBC 8.9, RBC 3.93 L, Hgb 11.8 L, Hct 34.1 L, MCV 86.8, MCH 30.0, MCHC 34.6, RDW Std Deviation 46.5 H, RDW Coeff of Andrews 14.6, Plt Count 108 L, MPV 9.5 02/21/24 13:15: Sodium 138, Potassium 4.8, Chloride 105, Carbon Dioxide 28.0, B UN 37 H, Creatinine 3.04 H, Estim Creat Clear Calc 16.91, Est GFR (MDRD) Af Amer 19 L, Est GFR (MDRD) Non-Af 16 L, BUN/Creatinine Ratio 12.2, Glucose 89, Calcium 7.3 L, Phosphorus 5.5 H, Albumin 1.8 L Micro: Microbiology 02/19/24 13:47 Blood Culture (Wb) - Anticubital Right Blood Culture - Preliminary No growth in 48 hours. 02/19/24 17:40 Urine Catheter - Doran Urine Culture - Preliminary Culture exhibits no growth. 02/20/24 08:10 Nasal Secretion MRSA (PCR) - Final ABG Data ABG results: ABG 02/21/24 08:42 Specimen Type ART Sample Site Art Line pH 7.47 H Bicarbonate Actual 23.0 Total CO2 24 Base Excess -1 O2 Saturation 97 O2 % 4.0 ABG pCO2 31.9 L ABG pO2 83 O2 Delivery Device Cannula Vent Mode Not entered Radiography Diagnostic Testing: Radiology Impression Chest X-Ray 02/21/24 08:13 IMPRESSION: The tip of the right internal jugular hemodialysis catheter is in the midportion of the superior vena cava. A right-sided PICC line catheter is seen with the tip in the right atrium. Findings suggestive of bibasilar atelectasis and/or early infiltrates with blunting of both costophrenic angles worse at the left lung base. Findings suggestive of a mild degree of CHF. Electronically Signed: Eulalio Pedroza MD at 8:37 EDT , Physical Exam Const General Appearance: lethargic and ill appearing HEENT normocephalic and head/scalp atraumatic Eyes PERRL, EOMs intact bilaterally and conjunctivae normal Neck supple General: trachea midline Chest inspection of chest normal Resp Effort and Inspection: tachypneic Auscultation: diminished lung sounds Cardio S1 normal heart sound and S2 normal heart sound Rate: tachycardic GI GI Narrative: Nonfocal abdominal tenderness still present Extremity no clubbing, cyanosis or edema Skin no rashes or lesions noted Neuro CN's II-XII intact bilaterally and no focal motor deficits Psych Mood & Affect: flat affect Assessment & Plan Assessment/Plan (1) Ischemic colitis: (2) Elevated bilirubin: (3) Ischemic hepatitis: PLAN: Plan 78-year-old with schizophrenia who comes in with hypotension for unknown reason and discovered to have a severe lactic acidosis with acute kidney injury and acute liver injury. She was discovered to have inflammation throughout the colon likely consistent with ischemic colitis. She is currently being seen by nephrology for renal replacement therapy. -Ischemic colitis-I agree with surgery that I do not think that her severe lactic acidosis and imaging is consistent with severe ischemia involving the colon. There is not any sign of mesenteric ischemia at this time. Hopefully lactic acidosis will improve with renal replacement therapy -Ischemic hepatitis-secondary to severe hypotension. LFTs and bilirubin are improving. I will hold off on liver biopsy at this time as her INR has not gotten any worse than 1.7 so I think her acute liver injury from ischemic hepatitis is improving. Continue to monitor LFTs, ESR, CRP, lactic acid and INR Charges/Coding Visit Charges Inpatient E&M: 51062 Subs Hosp L3
[2024-02-21] MEDS: PUREFLOW B SOLUTION 4K 5,000 ML BAG 9 BAG PF (16:31)
[2024-02-21] MEDS: Dextrose 10%-Water 250 ML IV ×2 (18:23→21:22)
[2024-02-21 18:44] LABS: Bedside Glucose 40 mg/dL (74-106)
--- NOTE | 2024-02-21 22:24 | PCM.HOSP.N ---
Hospitalist Note Patient with malfunctioning CRRT. Staff concerned about air in the line. Requested they discuss with Nephrology to be certain on treatment of the line and further evaluation of CRRT to correct. Noted patient with no worsened hypoxia on 12 L. Will obtain CXR, ABG and request BIPAP pending RT ABG evaluation. Unclear if related with CRRT malfunction. Recent 02/20/24 CT chest portion with no marked findings.
--- NOTE | 2024-02-21 22:30 | RAD_ITS ---
EXAM: XR CHEST, 1 VIEW CLINICAL INDICATION: Hypoxia, worsening TECHNIQUE: Frontal view of the chest. COMPARISON: Chest radiograph earlier on same date. FINDINGS: LUNGS AND PLEURAL SPACES: Bilateral pleural effusions and associated airspace disease which may be atelectasis or pneumonia are similar to the prior examination. No pneumothorax. HEART: Cardiomegaly and/or pericardial effusion is again identified. MEDIASTINUM: Central airways and mediastinal contour are unremarkable. BONES/JOINTS: No significant abnormality. No acute fracture. SOFT TISSUES: No significant abnormality. TUBES, LINES AND DEVICES: Right upper extremity PICC and right IJ venous catheters are unchanged. UPPER ABDOMEN: Gaseous distention in the visualized upper abdominal bowel and stomach. RAD/Chest 1 View (Portable) IMPRESSION: 1. Bilateral pleural effusions and associated airspace disease which may be atelectasis or pneumonia are similar to the prior examination. 2. Cardiomegaly and/or pericardial effusion is again identified. 3. Gaseous distention in the visualized upper abdominal bowel and stomach. Electronically Signed: Armaan Coelho DO at 22:47 EDT ,
[2024-02-21 23:00] LABS: Bedside Glucose 70 mg/dL (74-106)
[2024-02-21 23:00] LABS: Bedside Glucose 71 mg/dL (74-106)
[2024-02-21 23:05] LABS: Base Excess 2 mmol/L (-2 to +2); Bicarbonate 25.1 mmol/L (22-26); Blood Gas Specimen Type ART; Mode Not entered; O2 Delivery Device Venti Mask; PO2 53 mmHG (75-100); SITE Art Line; SO2 90 % (95-99); Total Carbon Dioxide 26 mmol/L; pCO2 32.4 mmHg (35-45)
[2024-02-21] MEDS: Heparin 10,000 UNITS/10 ML Vial 2600 UNITS IV (23:28)
[2024-02-21 23:33] LABS: Albumin, Serum 1.7 g/dL (3.2-5.0); BUN 31 mg/dL (7-18); BUN/Creat Ratio 11.8 RATIO (10-20); Calcium,Total 7.5 mg/dL (8.5-10.1); Chloride 106 mmol/L (98-107); Creatinine, Serum 2.62 mg/dL (0.55-1.02); EST Glomerular Filtration Rate 19 mL/min (>60); Est Glom Filt Rate - Afr Amer 23 mL/min (>60); Estimated Creatinine Clearance 19.62 ml/min; Glucose 107 mg/dL (74-106); Phosphorus 4.5 mg/dL (2.5-4.9); Potassium 4.6 mmol/L (3.5-5.1); Sodium Level 138 mmol/L (136-145)
--- NOTE | 2024-02-21 23:43 | NURSING ---
2200- pt CRRT machine alarming venous air. Peformed interventions that NX Stage machine provided, no intervention effective.. No air/ clots seen in venous tubing but machine continued to alarm. After approx 5 mins, clot present and CRRT completely stopped. During this time pt became hypoxic on 2L. Placed on 12L macarena mask and pt continued sat mid 80's. Dr. Dowd and Dr. Tracy notified at this time. CXR and ABG obtained, CRRT ordered to be held per Dr. Tracy
--- NOTE | 2024-02-21 23:50 | NURSING ---
1944- family bedside, pt's son, Malachi, asked this RN to see if pt will receive her clozapine tonight. Son notified it was scheduled once daily at 10 am. Son states that she takes it at home twice daily and expressed concern regarding her mental status/ schizophrenia. Informed son at this time that I would pass info along to nightsksft hospitalist and see if we can get it ordered BID. [id number]- Dr. Dowd informed this RN that she would like to hold off on sedatives d/t pt's respiratory status.
[2024-02-22] VITALS (40 sets, daily range): BP systolic 82–176; BP diastolic 45–63; PULSE 114–131; RESP 20–28; TEMP 36.6–37.3; O2SAT 90–118; BMI 33.3; BMI 32.5
[2024-02-22] MEDS: Hydrocortisone Sod Succinate 100 MG/2 ML Vial 50 MG IV ×4 (00:08→18:02)
[2024-02-22] MEDS: CHLORHEXIDINE GLUC 2% CLOTH 1 EACH TOWELETTE TOPICAL (01:02)
[2024-02-22 01:37] LABS: Hematocrit 29.7 % (37-47)
--- NOTE | 2024-02-22 02:30 | VDLE_ITS ---
Reason For Study: Elevated D Dimer RIGHT LEFT GSV is normal. GSV is normal. CFV is compressible, spontaneous, competent CFV is compressible, spontaneous, competent, and demonstrates pulsatile venous flow. and demonstrates pulsatile venous flow. FV is compressible, spontaneous, competent FV is compressible, spontaneous, competent and demonstrates pulsatile venous flow. and demonstrates pulsatile venous flow. POP V is compressible, spontaneous, competent POP V is compressible, spontaneous, competent and demonstrates pulsatile venous flow. and demonstrates pulsatile venous flow. T/P Trunk is compressible. T/P Trunk is compressible. PTV is compressible. PTV is compressible. RT PerV is compressible. LT PerV is compressible. Procedure This is a venous duplex using B-mode, color flow and spectral Doppler. Exam performed portable in ICU/CCU. The exam was diagnostic. A preliminary report was called and/or faxed to [facility]. VL/Venous Duplex US - Rachelle Extrem Interpretation Summary Deep veins of the lower extremities are bilaterally patent and compressible seg mentally. There is no evidence of deep vein thrombosis on either side. Valvular competence appears in tact within the proximal deep venous systems bilaterally. The great saphenous veins appear bila terally patent and compressible segmentally. Pulsatile flow is noted in the deep venous system rachelle aterally, which may be indicative of elevated central venous pressure (i.e. congestive heart failur e, pulmonary hypertension, etc.). Clinical correlation is advised. Ordering Physician: Usha Dowd Referring Physician: Precious Aleman Performed By: Des Hernandez RVT
[2024-02-22 03:39] LABS: Absolute Neutrophil Count 5.7 X10^3/uL (2.0-7.7); Basophil# 0.08 X10^3/uL; Basophil% 1.2 % (0-1); Hemoglobin 10.4 g/dL (12.0-15.0); Lymphocyte % 5.8 % (19-41); Mean Corp Hgb Conc 33.5 g/dL (32-36); Mean Corpuscular Hgb 29.5 pg (27.0-32.0); Mean Corpuscular Volume 87.8 fL (81-99); Mean Platelet Vol. 11.2 fl (6.2-12.0); Monocyte# 0.58 X10^3/uL; Monocyte% 8.5 % (0-10); NRBC Flagged by Analyzer 0 % (0-5); Neutrophil # 5.67 X10^3/uL (2.7-7.7); Neutrophil % 82.7 % (47-70); POSITIVE COUNT YES; POSITIVE DIFFERENTIAL YES; POSITIVE MORPHOLOGY YES; Platelet Count 53 K/mm3 (150-450); RBC Distribution Width CV 14.8 % (11.6-14.6); RBC Distribution Width SD 47.6 fl (35.1-43.9); Red Blood Count 3.53 M/mm3 (4.2-5.4); White Blood Count 6.9 K/mm3 (4.4-11.0)
[2024-02-22 03:43] LABS: Anion Gap 6 (5-15); BUN 34 mg/dL (7-18); BUN/Creat Ratio 11.9 RATIO (10-20); Calcium,Total 7.7 mg/dL (8.5-10.1); Chloride 106 mmol/L (98-107); Creatinine, Serum 2.85 mg/dL (0.55-1.02); EST Glomerular Filtration Rate 17 mL/min (>60); Est Glom Filt Rate - Afr Amer 21 mL/min (>60); Estimated Creatinine Clearance 18.03 ml/min; Glucose 78 mg/dL (74-106); Potassium 4.6 mmol/L (3.5-5.1); Sodium Level 138 mmol/L (136-145)
[2024-02-22 03:44] LABS: Erythrocyte Sedimentation Rate 10 mm/hr (0-30)
[2024-02-22 03:50] LABS: Albumin, Serum 1.7 g/dL (3.2-5.0); BUN 35 mg/dL (7-18); BUN/Creat Ratio 12.4 RATIO (10-20); Calcium,Total 7.7 mg/dL (8.5-10.1); Chloride 105 mmol/L (98-107); Creatinine, Serum 2.83 mg/dL (0.55-1.02); EST Glomerular Filtration Rate 17 mL/min (>60); Est Glom Filt Rate - Afr Amer 21 mL/min (>60); Estimated Creatinine Clearance 18.16 ml/min; Glucose 79 mg/dL (74-106); Phosphorus 4.6 mg/dL (2.5-4.9); Potassium 4.6 mmol/L (3.5-5.1); Sodium Level 138 mmol/L (136-145)
[2024-02-22 04:18] LABS: Differential Comment SCANNED; Differential Indicated SCAN CRITERIA MET; Platelet Estimate MOD DEC (ADEQ)
[2024-02-22 04:20] LABS: AST(SGOT) 336 U/L (15-37); Alanine Aminotransfer ALT/SGPT 669 U/L (13-56); Albumin, Serum 1.7 g/dL (3.2-5.0); Alkaline Phosphatase 213 U/L (45-117); Bilirubin, Direct 3.19 mg/dL (0.00-0.30); Ferritin 298 ng/mL (8-252); Globulin 2.5 g/dL (2.2-4.2); LDH 1047 U/L (84-246); Protein, Total 4.2 g/dL (6.4-8.2)
[2024-02-22 04:39] LABS: D-Dimer Quantitative (DVT/PE) > 20.00 FEU/ug/m (0.27-0.49)
[2024-02-22] MEDS: Dextrose 10%-Water 250 ML IV ×2 (04:49→18:11)
[2024-02-22] MEDS: Piperacil/Tazobactam 3.375 GM in 0.9% Normal Saline (50mL MB+) 50 ML IV ×2 (05:05→18:07)
[2024-02-22] MEDS: 0.9% Saline Lock 10 ML Syringe IV (05:06)
[2024-02-22] MEDS: Dextrose 5%/0.9% NaCl 1,000 ML 50 ML IV (05:12)
[2024-02-22 05:33] LABS: Bedside Glucose 71 mg/dL (74-106)
--- NOTE | 2024-02-22 06:44 | PN.CC_ITS ---
Assessment & Plan Assessment/Plan (1) Acute hypotension: PLAN: Plan RECOMMENDATIONS: 1. Restart vasopressors, if needed, to maintain a mean arterial pressure at or above 65 mmHg. 2. Continue empiric antibiotics. 3. Continue stress dose steroids as ordered. 4. Ongoing dialysis support per nephrology recommendations. 5. Lower extremity Dopplers are pending. 6. Continue PPI therapy. IMPRESSIONS: 1. Undifferentiated shock with persistent lactic acidemia The patient initially presented to the hospital with concern for an upper GI bleed with associated hypotension. She was taken urgently to endoscopy, where a Phyllis-Coy tear was identified. Endoscopic intervention was performed. However, despite the aforementioned interventions, the patient has continued to decompensate from a clinical perspective, with worsening hypotension. Other potential considerations include sepsis and PE. However, the patient's creatinine has worsened, which would preclude the ability to obtain a contrasted CT chest. Echocardiogram revealed intact systolic function without evidence of RV dysfunction or pulmonary hypertension, making large PE rather unlikely. For now, the patient will be continued on empiric antimicrobials. CT imaging the abdomen did reveal nonspecific colitis involving the colon, potentially ischemic in etiology. General surgery is currently following. Continue supportive measures including vasopressors to maintain a mean arterial pressure at or above 65 mmHg, if needed. 2. Acute hypoxemic respiratory failure Most likely multifactorial in etiology with hypervolemia and COVID-19 pneumonia contributing. Continue supportive measures including supplemental oxygen to maintain saturations at or above 90%. The patient is already on steroids, which will be continued. Recommend further attempts at volume optimization via CRRT, if feasible. 3. Acute kidney injury Improving. Most likely prerenal in etiology in the setting of #1, with evolution to ischemic ATN. Continue ongoing dialysis support per nephrology recommendations. 4. Ischemic hepatitis Improving. Continue to monitor transaminase levels daily. Anticipate improvement with stabilization of hemodynamics. 5. Acute metabolic encephalopathy Most likely related to #1 with accompanying metabolic derangements and infection. 6. History of bipolar disorder/schizophrenia Complicates care, management, recovery and prognosis. Continue supportive measures as noted above. TIME: 33 minutes of critical care time, independent of procedures, was spent addressing the patient's undifferentiated shock, acute kidney injury, ischemic hepatitis, metabolic encephalopathy, review of all data and collaboration with the care team. Subjective Subjective The patient was seen and examined at the bedside this morning. Events from the last 24 hours have been reviewed. The patient is currently afebrile, with borderline hemodynamics. She is not currently on any form of vasopressor support. Her CRRT clotted off last night. Due to her increased oxygen demand, the patient was tested for COVID and found to be positive. The patient is documented to be overall net +17.5 L for the hospitalization. Hemoglobin was noted to be 10.4 g/dL. Platelet count is dropped to 53,000. The patient also became hypoglycemic and was started on dextrose containing fluids. Total bilirubin remains elevated at 3.9. AST and ALT continue to improve. Lower extremity Doppler studies were ordered by the overnight hospitalist. Objective Data Objective Data The patient's most recent lab work, culture data and imaging studies have all been personally reviewed. Surface echocardiogram demonstrated normal LV size and function with an ejection fraction of 55%. There was no evidence of RV dysfunction or pulmonary hypertension. Blood and urine cultures are pending. COVID PCR was positive on February 21. Vital Signs: Vital Signs Temp Pulse Resp BP Pulse Ox O2 Del Method O2 Flow Rate 98.0 F 126 H 25 H 82/60 L 95 Venturi Mask 12 02/22/24 06:00 02/22/24 06:00 02/22/24 06:00 02/22/24 06:00 02/22/24 06:00 02/22/24 06:00 02/22/24 06:00 FiO2 50 02/22/24 01:15 Oxygen Flow Rate (L/min) 12 Oxygen Delivery Method Venturi Mask Weight: 195 lb 1.745 oz Body Mass Index (BMI) 33.3 Intake & Output: Intake and Output for Last 24 Hours 02/20/24 02/21/24 02/22/24 23:59 23:59 23:59 Intake Total 9277.46 / 9351.01 3122.48 / 3122.48 175 / 175 Output Total 110 / 110 45 / 70 35 / 35 Balance 9167.46 / 9241.01 3077.48 / 3052.48 140 / 140 Lab / Micro Data Attestation: I reviewed the patient's lab results. 02/22/24 03:18 02/22/24 03:18 Labs: Laboratory Results - last 24 hr 02/21/24 09:30: WBC 8.9, RBC 3.93 L, Hgb 11.8 L, Hct 34.1 L, MCV 86.8, MCH 30.0, MCHC 34.6, RDW Std Deviation 46.5 H, RDW Coeff of Andrews 14.6, Plt Count 108 L, MPV 9.5 02/21/24 13:15: Sodium 138, Potassium 4.8, Chloride 105, Carbon Dioxide 28.0, B UN 37 H, Creatinine 3.04 H, Estim Creat Clear Calc 16.91, Est GFR (MDRD) Af Amer 19 L, Est GFR (MDRD) Non-Af 16 L, BUN/Creatinine Ratio 12.2, Glucose 89, Calcium 7.3 L, Phosphorus 5.5 H, Albumin 1.8 L 02/21/24 18:19: POC Glucose 40 L* 02/21/24 21:14: POC Glucose 70 L 02/21/24 22:41: POC Glucose 71 L 02/21/24 22:42: Sodium 138, Potassium 4.6, Chloride 106, Carbon Dioxide 26.0, B UN 31 H, Creatinine 2.62 H, Estim Creat Clear Calc 19.62, Est GFR (MDRD) Af Amer 23 L, Est GFR (MDRD) Non-Af 19 L, BUN/Creatinine Ratio 11.8, Glucose 107 H, C alcium 7.5 L, Phosphorus 4.5, Albumin 1.7 L 02/22/24 00:06: POC Glucose 71 L 02/22/24 01:16: Hgb 10.0 L, Hct 29.7 L 02/22/24 03:18: WBC 6.9, RBC 3.53 L, Hgb 10.4 L, Hct 31.0 L, MCV 87.8, MCH 29.5, MCHC 33.5, RDW Std Deviation 47.6 H, RDW Coeff of Andrews 14.8 H, Plt Count 53 L, MPV 11.2, Immature Gran % (Auto) 1.800 H, Neut % (Auto) 82.7 H, Lymph % (Auto) 5.8 L, [place] % (Auto) 8.5, Eos % (Auto) 0.0, Baso % (Auto) 1.2 H, Absolute Neuts (auto) 5.7, Absolute Lymphs (auto) 0.40 L, Nucleated RBC % 0, Differential Comment SCANNED, Platelet Estimate MOD DEC, ESR 10, D-Dimer Quant (PE/DVT) > 20.00 H*, Sodium 138 02/22/24 03:18: Sodium 138, Potassium 4.6 02/22/24 03:18: Potassium 4.6, Chloride 106 02/22/24 03:18: Chloride 105, Carbon Dioxide 26.0 02/22/24 03:18: Carbon Dioxide 25.0, Anion Gap 6, BUN 34 H 02/22/24 03:18: BUN 35 H, Creatinine 2.85 H 02/22/24 03:18: Creatinine 2.83 H, Estim Creat Clear Calc 18.03 02/22/24 03:18: Estim Creat Clear Calc 18.16, Est GFR (MDRD) Af Amer 21 L 02/22/24 03:18: Est GFR (MDRD) Af Amer 21 L, Est GFR (MDRD) Non-Af 17 L 02/22/24 03:18: Est GFR (MDRD) Non-Af 17 L, BUN/Creatinine Ratio 11.9 02/22/24 03:18: BUN/Creatinine Ratio 12.4, Glucose 78 02/22/24 03:18: Glucose 79, Calcium 7.7 L 02/22/24 03:18: Calcium 7.7 L, Phosphorus 4.6, Ferritin 298 H, Total Bilirubin 3.90 H, Direct Bilirubin 3.19 H, AST 336 H, ALT 669 H, Alkaline Phosphatase 213 H, Lactate Dehydrogenase 1047 H, C-React Prot Ext Range 206.00 H, B-Natriuretic Peptide 496.0 H, Total Protein 4.2 L, Albumin 1.7 L 02/22/24 03:18: Albumin 1.7 L, Globulin 2.5 Micro: Microbiology 02/22/24 01:16 Mucosa - Nasopharyngeal Coronavirus COVID-19 PCR - Final SARS-CoV-2 (COVID 19 PCR) 02/22/24 01:16 Mucosa - Nasopharyngeal Respiratory Panel (PCR) - Final 02/19/24 13:47 Blood Culture (Wb) - Anticubital Right Blood Culture - Preliminary No growth in 48 hours. 02/19/24 17:40 Urine Catheter - Doran Urine Culture - Preliminary Culture exhibits no growth. 02/20/24 08:10 Nasal Secretion MRSA (PCR) - Final ABG Data ABG results: ABG 02/21/24 02/21/24 08:42 23:00 Specimen Type ART ART Sample Site Art Line Art Line pH 7.47 H 7.50 H Bicarbonate Actual 23.0 25.1 Total CO2 24 26 Base Excess -1 2 O2 Saturation 97 90 L O2 % 4.0 50.0 ABG pCO2 31.9 L 32.4 L ABG pO2 83 53 L O2 Delivery Device Cannula Venti Mask Vent Mode Not entered Not entered Radiography Diagnostic Testing: Radiology Impression Chest X-Ray 02/21/24 08:13 IMPRESSION: The tip of the right internal jugular hemodialysis catheter is in the midportion of the superior vena cava. A right-sided PICC line catheter is seen with the tip in the right atrium. Findings suggestive of bibasilar atelectasis and/or early infiltrates with blunting of both costophrenic angles worse at the left lung base. Findings suggestive of a mild degree of CHF. Electronically Signed: Eulalio Pedroza MD at 8:37 EDT , Chest X-Ray 02/21/24 22:30 IMPRESSION: 1. Bilateral pleural effusions and associated airspace disease which may be atelectasis or pneumonia are similar to the prior examination. 2. Cardiomegaly and/or pericardial effusion is again identified. 3. Gaseous distention in the visualized upper abdominal bowel and stomach. Electronically Signed: Armaan Coelho DO at 22:47 EDT , Physical Exam Const General Appearance: lethargic and ill appearing HEENT normocephalic and head/scalp atraumatic Eyes PERRL, EOMs intact bilaterally and conjunctivae normal Neck supple General: trachea midline and CVC in place Chest inspection of chest normal Resp Effort and Inspection: tachypneic Auscultation: diminished lung sounds Cardio S1 normal heart sound and S2 normal heart sound Rate: tachycardic GI soft to palpation Auscultation: normoactive bowel sounds Extremity no clubbing, cyanosis or edema Skin no rashes or lesions noted Neuro CN's II-XII intact bilaterally, moves all extremities and no focal motor deficits Psych Mood & Affect: flat affect Charges/Coding Procedures Hospitalists Procedures: 36843 Critical Care 1st Hr
[2024-02-22 08:48] LABS: Bedside Glucose 97 mg/dL (74-106)
[2024-02-22 08:48] LABS: Bedside Glucose 60 mg/dL (74-106)
[2024-02-22 08:48] LABS: International Normalized Ratio 1.4; Prothrombin Time (Protime)PT. 17.5 SECONDS (11.7-14.9)
[2024-02-22 08:49] LABS: Partial Thromboplast Time 36.1 Seconds (24.1-36.2)
--- NOTE | 2024-02-22 09:08 | PCM.PN.SRG ---
Subjective Subjective The patient was diagnosed with COVID this morning. She did have some blood per rectum overnight Objective Data Objective Data Vital Signs: Vital Signs Temp Pulse Resp BP Pulse Ox O2 Del Method O2 Flow Rate 98.8 F 123 H 23 H 104/53 L 98 Venturi Mask 12 02/22/24 08:00 02/22/24 08:00 02/22/24 08:00 02/22/24 08:00 02/22/24 08:00 02/22/24 08:00 02/22/24 07:00 FiO2 50 02/22/24 08:00 Oxygen Flow Rate (L/min) 12 Oxygen Delivery Method Venturi Mask Weight: 195 lb 1.745 oz Body Mass Index (BMI) 33.3 Intake & Output: Intake and Output for Last 24 Hours 02/20/24 02/21/24 02/22/24 23:59 23:59 23:59 Intake Total 9277.46 / 9351.01 3122.48 / 3122.48 225 / 225 Output Total 110 / 110 45 / 70 35 / 35 Balance 9167.46 / 9241.01 3077.48 / 3052.48 190 / 190 Lab / Micro Data 02/22/24 03:18 02/22/24 03:18 Labs: Laboratory Results - last 24 hr 02/21/24 09:30: WBC 8.9, RBC 3.93 L, Hgb 11.8 L, Hct 34.1 L, MCV 86.8, MCH 30.0, MCHC 34.6, RDW Std Deviation 46.5 H, RDW Coeff of Andrews 14.6, Plt Count 108 L, MPV 9.5 02/21/24 13:15: Sodium 138, Potassium 4.8, Chloride 105, Carbon Dioxide 28.0, BUN 37 H, Creatinine 3.04 H, Estim Creat Clear Calc 16.91, Est GFR (MDRD) Af Amer 19 L, Est GFR (MDRD) Non-Af 16 L, BUN/Creatinine Ratio 12.2, Glucose 89, Calcium 7.3 L, Phosphorus 5.5 H, Albumin 1.8 L 02/21/24 18:19: POC Glucose 40 L* 02/21/24 21:14: POC Glucose 70 L 02/21/24 22:41: POC Glucose 71 L 02/21/24 22:42: Sodium 138, Potassium 4.6, Chloride 106, Carbon Dioxide 26.0, BUN 31 H, Creatinine 2.62 H, Estim Creat Clear Calc 19.62, Est GFR (MDRD) Af Amer 23 L, Est GFR (MDRD) Non-Af 19 L, BUN/Creatinine Ratio 11.8, Glucose 107 H, Calcium 7.5 L, Phosphorus 4.5, Albumin 1.7 L 02/22/24 00:06: POC Glucose 71 L 02/22/24 01:16: Hgb 10.0 L, Hct 29.7 L 02/22/24 03:18: WBC 6.9, RBC 3.53 L, Hgb 10.4 L, Hct 31.0 L, MCV 87.8, MCH 29.5, MCHC 33.5, RDW Std Deviation 47.6 H, RDW Coeff of Andrews 14.8 H, Plt Count 53 L, MPV 11.2, Immature Gran % (Auto) 1.800 H, Neut % (Auto) 82.7 H, Lymph % (Auto) 5.8 L, [place] % (Auto) 8.5, Eos % (Auto) 0.0, Baso % (Auto) 1.2 H, Absolute Neuts (auto) 5.7, Absolute Lymphs (auto) 0.40 L, Nucleated RBC % 0, Differential Comment SCANNED, Platelet Estimate MOD DEC, ESR 10, D-Dimer Quant (PE/DVT) > 20.00 H*, Sodium 138 02/22/24 03:18: Sodium 138, Potassium 4.6 02/22/24 03:18: Potassium 4.6, Chloride 106 02/22/24 03:18: Chloride 105, Carbon Dioxide 26.0 02/22/24 03:18: Carbon Dioxide 25.0, Anion Gap 6, BUN 34 H 02/22/24 03:18: BUN 35 H, Creatinine 2.85 H 02/22/24 03:18: Creatinine 2.83 H, Estim Creat Clear Calc 18.03 02/22/24 03:18: Estim Creat Clear Calc 18.16, Est GFR (MDRD) Af Amer 21 L 02/22/24 03:18: Est GFR (MDRD) Af Amer 21 L, Est GFR (MDRD) Non-Af 17 L 02/22/24 03:18: Est GFR (MDRD) Non-Af 17 L, BUN/Creatinine Ratio 11.9 02/22/24 03:18: BUN/Creatinine Ratio 12.4, Glucose 78 02/22/24 03:18: Glucose 79, Calcium 7.7 L 02/22/24 03:18: Calcium 7.7 L, Phosphorus 4.6, Ferritin 298 H, Total Bilirubin 3.90 H, Direct Bilirubin 3.19 H, AST 336 H, ALT 669 H, Alkaline Phosphatase 213 H, Lactate Dehydrogenase 1047 H, C-React Prot Ext Range 206.00 H, B-Natriuretic Peptide 496.0 H, Total Protein 4.2 L, Albumin 1.7 L 02/22/24 03:18: Albumin 1.7 L, Globulin 2.5 02/22/24 04:42: POC Glucose 60 L 02/22/24 05:22: POC Glucose 97 02/22/24 08:12: PT 17.5 H, INR 1.4, APTT 36.1 Micro: Microbiology 02/19/24 17:40 Urine Catheter - Doran Urine Culture - Final Culture exhibits no growth. 02/22/24 01:16 Mucosa - Nasopharyngeal Coronavirus COVID-19 PCR - Final SARS-CoV-2 (COVID 19 PCR) 02/22/24 01:16 Mucosa - Nasopharyngeal Respiratory Panel (PCR) - Final 02/19/24 13:47 Blood Culture (Wb) - Anticubital Right Blood Culture - Preliminary No growth in 48 hours. 02/20/24 08:10 Nasal Secretion MRSA (PCR) - Final ABG Data ABG results: ABG 02/21/24 23:00 Specimen Type ART Sample Site Art Line pH 7.50 H Bicarbonate Actual 25.1 Total CO2 26 Base Excess 2 O2 Saturation 90 L O2 % 50.0 ABG pCO2 32.4 L ABG pO2 53 L O2 Delivery Device Venti Mask Vent Mode Not entered Radiography Diagnostic Testing: Radiology Impression Chest X-Ray 02/21/24 22:30 IMPRESSION: 1. Bilateral pleural effusions and associated airspace disease which may be atelectasis or pneumonia are similar to the prior examination. 2. Cardiomegaly and/or pericardial effusion is again identified. 3. Gaseous distention in the visualized upper abdominal bowel and stomach. Electronically Signed: Armaan Coelho DO at 22:47 EDT , Physical Exam Resp normal respiratory effort GI soft to palpation Inspection: abdominal distention Palpation: tender Extremity normal to inspection Assessment & Plan Assessment/Plan (1) Ischemic colitis: PLAN: The patient had questionable ischemic colitis on CT scan. She is still having some abdominal pain. Continue n.p.o. with sips and chips until her pain resolves. Patient is being diuresed and she is on antibiotics. eDacon Peter MD Pager: [facility] [address] [place] [address], [address] [place] [address] Office:
[2024-02-22] MEDS: Pantoprazole Sodium 80 MG in 0.9% Normal Saline (100mL Bag) 80 ML 10 MG CONT INF ×2 (09:15→18:02)
--- NOTE | 2024-02-22 10:42 | PCM.CONS.GEN ---
Assessment & Plan Assessment/Plan (1) Ischemic hepatitis: (2) Ischemic colitis: (3) Shock: PLAN: Shock with GI bleed, DAGOBERTO, hypoxic resp failure, covid, hepatitis, and suspected colitis seen on CT. On zosyn and iv steroid. states that he refuses covid vaccination, remdesivir, and paxlovid for her. States that he has done his research and those who got remdesivir were more likely to . I explained that remdesivir would be standard of care, and those patients who got remdesivir were more likely to because they were sicker. The goal of remdesivir is to decrease the chance of dying in those who are so sick. He is not interested, will d/c the order for doses 2-5. He wants her to get ivermectin, explained we would not do that due to lack of benefit and risk of side effects. For intermittent hemodialysis, zosyn will decrease to q12h. Will follow, thank you, d/w nursing. (4) COVID: (5) Acute kidney injury: (6) Acute hypoxic respiratory failure: HPI Consult Data Date of Consult: 02/22/24 HPI Narrative Reason for Consultation: covid HPI Narrative: DINO DELGADO, is a 78 F who presented 02/18 with acute onset n/v/d with dark emesis. No recent abx. No sick contacts. reports she had some fatigue. Admitted here with shock, EGD done for Phyllis Coy tear. Developed worsening liver function, DAGOBERTO, hypoxia. Started on empiric vanc/zosyn. CT showed possible colitis. Started on CRRT. Now covid (+). No prior vaccination or covid infection. Pt unable to provide history or ROS due to mental status. [facility] Medical History Schizophrenia Medical History unable to obtain Home Medications ?Medication ?Instructions ?Recorded ?Last Taken ?Type lorazepam 0.5 mg tablet 0.5 mg PO DAILY 05/20/18 02/18/24 History clozapine 100 mg tablet 100 mg PO BID 02/19/24 02/18/24 History Allergy/AdvReac Type Severity Reaction Status Date / Time Sulfa (Sulfonamide Allergy Itching Verified 02/21/24 10:45 Antibiotics) Surgical History History of cholecystectomy History of cholecystectomy Social History household members: spouse Smoking Status: Never smoker Physical Exam Const General Appearance: lethargic Orientation / Consciousness: confused HEENT normocephalic and head/scalp atraumatic Eyes PERRL and EOMs intact bilaterally Neck supple and No nodes Resp Auscultation: diminished lung sounds Cardio Rate: tachycardic GI soft to palpation, non-tender and non-distended Extremity General Extremity: edema Skin no rashes or lesions noted Neuro Neuro Narrative: some unintelligible speech Lab / Micro Data Attestation: I reviewed the patient's lab results. 02/22/24 03:18 02/22/24 03:18 Labs: Laboratory Results - last 24 hr 02/19/24 09:45: Crossmatch See Detail 02/21/24 13:15: Sodium 138, Potassium 4.8, Chloride 105, Carbon Dioxide 28.0, BUN 37 H, Creatinine 3.04 H, Estim Creat Clear Calc 16.91, Est GFR (MDRD) Af Amer 19 L, Est GFR (MDRD) Non-Af 16 L, BUN/Creatinine Ratio 12.2, Glucose 89, Calcium 7.3 L, Phosphorus 5.5 H, Albumin 1.8 L 02/21/24 18:19: POC Glucose 40 L* 02/21/24 21:14: POC Glucose 70 L 02/21/24 22:41: POC Glucose 71 L 02/21/24 22:42: Sodium 138, Potassium 4.6, Chloride 106, Carbon Dioxide 26.0, BUN 31 H, Creatinine 2.62 H, Estim Creat Clear Calc 19.62, Est GFR (MDRD) Af Amer 23 L, Est GFR (MDRD) Non-Af 19 L, BUN/Creatinine Ratio 11.8, Glucose 107 H, Calcium 7.5 L, Phosphorus 4.5, Albumin 1.7 L 02/22/24 00:06: POC Glucose 71 L 02/22/24 01:16: Hgb 10.0 L, Hct 29.7 L 02/22/24 03:18: WBC 6.9, RBC 3.53 L, Hgb 10.4 L, Hct 31.0 L, MCV 87.8, MCH 29.5, MCHC 33.5, RDW Std Deviation 47.6 H, RDW Coeff of Andrews 14.8 H, Plt Count 53 L, MPV 11.2, Immature Gran % (Auto) 1.800 H, Neut % (Auto) 82.7 H, Lymph % (Auto) 5.8 L, [place] % (Auto) 8.5, Eos % (Auto) 0.0, Baso % (Auto) 1.2 H, Absolute Neuts (auto) 5.7, Absolute Lymphs (auto) 0.40 L, Nucleated RBC % 0, Differential Comment SCANNED, Platelet Estimate MOD DEC, ESR 10, D-Dimer Quant (PE/DVT) > 20.00 H*, Sodium 138 02/22/24 03:18: Sodium 138, Potassium 4.6 02/22/24 03:18: Potassium 4.6, Chloride 106 02/22/24 03:18: Chloride 105, Carbon Dioxide 26.0 02/22/24 03:18: Carbon Dioxide 25.0, Anion Gap 6, BUN 34 H 02/22/24 03:18: BUN 35 H, Creatinine 2.85 H 02/22/24 03:18: Creatinine 2.83 H, Estim Creat Clear Calc 18.03 02/22/24 03:18: Estim Creat Clear Calc 18.16, Est GFR (MDRD) Af Amer 21 L 02/22/24 03:18: Est GFR (MDRD) Af Amer 21 L, Est GFR (MDRD) Non-Af 17 L 02/22/24 03:18: Est GFR (MDRD) Non-Af 17 L, BUN/Creatinine Ratio 11.9 02/22/24 03:18: BUN/Creatinine Ratio 12.4, Glucose 78 02/22/24 03:18: Glucose 79, Calcium 7.7 L 02/22/24 03:18: Calcium 7.7 L, Phosphorus 4.6, Ferritin 298 H, Total Bilirubin 3.90 H, Direct Bilirubin 3.19 H, AST 336 H, ALT 669 H, Alkaline Phosphatase 213 H, Lactate Dehydrogenase 1047 H, C-React Prot Ext Range 206.00 H, B-Natriuretic Peptide 496.0 H, Total Protein 4.2 L, Albumin 1.7 L 02/22/24 03:18: Albumin 1.7 L, Globulin 2.5 02/22/24 04:42: POC Glucose 60 L 02/22/24 05:22: POC Glucose 97 02/22/24 08:12: PT 17.5 H, INR 1.4, APTT 36.1 Micro: Microbiology 02/19/24 17:40 Urine Catheter - Doran Urine Culture - Final Culture exhibits no growth. 02/22/24 01:16 Mucosa - Nasopharyngeal Coronavirus COVID-19 PCR - Final SARS-CoV-2 (COVID 19 PCR) 02/22/24 01:16 Mucosa - Nasopharyngeal Respiratory Panel (PCR) - Final 02/19/24 13:47 Blood Culture (Wb) - Anticubital Right Blood Culture - Preliminary No growth in 48 hours. ABG Data ABG results: ABG 02/21/24 23:00 Specimen Type ART Sample Site Art Line pH 7.50 H Bicarbonate Actual 25.1 Total CO2 26 Base Excess 2 O2 Saturation 90 L O2 % 50.0 ABG pCO2 32.4 L ABG pO2 53 L O2 Delivery Device Venti Mask Vent Mode Not entered Imaging Radiology Impression Chest X-Ray 02/21/24 22:30 IMPRESSION: 1. Bilateral pleural effusions and associated airspace disease which may be atelectasis or pneumonia are similar to the prior examination. 2. Cardiomegaly and/or pericardial effusion is again identified. 3. Gaseous distention in the visualized upper abdominal bowel and stomach. Electronically Signed: Armaan Coelho DO at 22:47 EDT ,
[2024-02-22] MEDS: 0.9% Normal Saline 1,000 ML IV.SOLN. 1000 ML OPERA.SITE (11:20)
[2024-02-22] MEDS: Heparin 10,000 UNITS/10 ML Vial IV (12:19)
--- NOTE | 2024-02-22 12:43 | PN.RENAL_ITS ---
Subjective Subjective No overnight events. Patient just finished dialysis session. Observed from door due to COVID isolation. Objective Data Objective Data Vital Signs: Vital Signs Temp Pulse Resp BP Pulse Ox O2 Del Method O2 Flow Rate 98.2 F 122 H 22 H 84/59 L 99 Non-Rebreather @ 15L/min and High Flow 15 02/22/24 12:13 02/22/24 12:13 02/22/24 12:13 02/22/24 12:13 02/22/24 12:00 02/22/24 12:13 02/22/24 11:45 FiO2 50 02/22/24 12:00 Oxygen Flow Rate (L/min) 15 Oxygen Delivery Method Non-Rebreather @ 15L/min Weight: 85.9 kg Body Mass Index (BMI) 32.5 Intake & Output: Intake and Output for Last 24 Hours 02/20/24 02/21/24 02/22/24 23:59 23:59 23:59 Intake Total 9277.46 / 9351.01 3122.48 / 3122.48 322.33 / 322.33 Output Total 110 / 110 45 / 70 2495 / 2495 Balance 9167.46 / 9241.01 3077.48 / 3052.48 -2172.67 / -2172.67 Lab / Micro Data 02/22/24 03:18 02/22/24 03:18 Labs: Laboratory Results - last 24 hr 02/19/24 09:45: Crossmatch See Detail 02/21/24 13:15: Sodium 138, Potassium 4.8, Chloride 105, Carbon Dioxide 28.0, B UN 37 H, Creatinine 3.04 H, Estim Creat Clear Calc 16.91, Est GFR (MDRD) Af Amer 19 L, Est GFR (MDRD) Non-Af 16 L, BUN/Creatinine Ratio 12.2, Glucose 89, Calcium 7.3 L, Phosphorus 5.5 H, Albumin 1.8 L 02/21/24 18:19: POC Glucose 40 L* 02/21/24 21:14: POC Glucose 70 L 02/21/24 22:41: POC Glucose 71 L 02/21/24 22:42: Sodium 138, Potassium 4.6, Chloride 106, Carbon Dioxide 26.0, B UN 31 H, Creatinine 2.62 H, Estim Creat Clear Calc 19.62, Est GFR (MDRD) Af Amer 23 L, Est GFR (MDRD) Non-Af 19 L, BUN/Creatinine Ratio 11.8, Glucose 107 H, C alcium 7.5 L, Phosphorus 4.5, Albumin 1.7 L 02/22/24 00:06: POC Glucose 71 L 02/22/24 01:16: Hgb 10.0 L, Hct 29.7 L 02/22/24 03:18: WBC 6.9, RBC 3.53 L, Hgb 10.4 L, Hct 31.0 L, MCV 87.8, MCH 29.5, MCHC 33.5, RDW Std Deviation 47.6 H, RDW Coeff of Andrews 14.8 H, Plt Count 53 L, MPV 11.2, Immature Gran % (Auto) 1.800 H, Neut % (Auto) 82.7 H, Lymph % (Auto) 5.8 L, [place] % (Auto) 8.5, Eos % (Auto) 0.0, Baso % (Auto) 1.2 H, Absolute Neuts (auto) 5.7, Absolute Lymphs (auto) 0.40 L, Nucleated RBC % 0, Differential Comment SCANNED, Platelet Estimate MOD DEC, ESR 10, D-Dimer Quant (PE/DVT) > 20.00 H*, Sodium 138 02/22/24 03:18: Sodium 138, Potassium 4.6 02/22/24 03:18: Potassium 4.6, Chloride 106 02/22/24 03:18: Chloride 105, Carbon Dioxide 26.0 02/22/24 03:18: Carbon Dioxide 25.0, Anion Gap 6, BUN 34 H 02/22/24 03:18: BUN 35 H, Creatinine 2.85 H 02/22/24 03:18: Creatinine 2.83 H, Estim Creat Clear Calc 18.03 02/22/24 03:18: Estim Creat Clear Calc 18.16, Est GFR (MDRD) Af Amer 21 L 02/22/24 03:18: Est GFR (MDRD) Af Amer 21 L, Est GFR (MDRD) Non-Af 17 L 02/22/24 03:18: Est GFR (MDRD) Non-Af 17 L, BUN/Creatinine Ratio 11.9 02/22/24 03:18: BUN/Creatinine Ratio 12.4, Glucose 78 02/22/24 03:18: Glucose 79, Calcium 7.7 L 02/22/24 03:18: Calcium 7.7 L, Phosphorus 4.6, Ferritin 298 H, Total Bilirubin 3.90 H, Direct Bilirubin 3.19 H, AST 336 H, ALT 669 H, Alkaline Phosphatase 213 H, Lactate Dehydrogenase 1047 H, C-React Prot Ext Range 206.00 H, B-Natriuretic Peptide 496.0 H, Total Protein 4.2 L, Albumin 1.7 L 02/22/24 03:18: Albumin 1.7 L, Globulin 2.5 02/22/24 04:42: POC Glucose 60 L 02/22/24 05:22: POC Glucose 97 02/22/24 08:12: PT 17.5 H, INR 1.4, APTT 36.1 Micro: Microbiology 02/19/24 17:40 Urine Catheter - Doran Urine Culture - Final Culture exhibits no growth. 02/22/24 01:16 Mucosa - Nasopharyngeal Coronavirus COVID-19 PCR - Final SARS-CoV-2 (COVID 19 PCR) 02/22/24 01:16 Mucosa - Nasopharyngeal Respiratory Panel (PCR) - Final 02/19/24 13:47 Blood Culture (Wb) - Anticubital Right Blood Culture - Preliminary No growth in 48 hours. 02/20/24 08:10 Nasal Secretion MRSA (PCR) - Final ABG Data ABG results: ABG 02/21/24 23:00 Specimen Type ART Sample Site Art Line pH 7.50 H Bicarbonate Actual 25.1 Total CO2 26 Base Excess 2 O2 Saturation 90 L O2 % 50.0 ABG pCO2 32.4 L ABG pO2 53 L O2 Delivery Device Venti Mask Vent Mode Not entered Radiography Diagnostic Testing: Radiology Impression Chest X-Ray 02/21/24 22:30 IMPRESSION: 1. Bilateral pleural effusions and associated airspace disease which may be atelectasis or pneumonia are similar to the prior examination. 2. Cardiomegaly and/or pericardial effusion is again identified. 3. Gaseous distention in the visualized upper abdominal bowel and stomach. Electronically Signed: Armaan Coelho DO at 22:47 EDT , Physical Exam Narrative Awake, resting quietly. On non-rebreather Doran, no urine in bag Assessment & Plan Assessment/Plan (1) Acute kidney injury: PLAN: Acute renal failure with normal baseline serum creatinine. Presumably ATN due to septic shock. No hydronephrosis on CT. Patient essentially anuric with worsening azotemia, hyperkalemia therefore patient initiated on CRRT 02/20. Taken off CRRT overnight. Blood pressures have improved and currently off IV pressors. Patient underwent and tolerated ultrafiltration today with no clearance and tolerated around 2.5 L fluid removal. We will evaluate for hemodialysis/or fluid removal tomorrow. Echo EF 55%, no evidence for diastolic dysfunction. Will continue to monitor for renal recovery. Lactic acidosis. Presumably of colon origin. Surgery consulted, no plans for intervention. Okay to repeat a CT abdomen with contrast if needed since she is on dialysis now. Urine cx no growth. Blood cx no growth in 48hrs. Possible liver biopsy tomorrow. Hypoxic respiratory failure, COVID-positive; IV antibiotics and steroids. Oxygen requirements non-rebreather.
[2024-02-22 13:43] LABS: Bedside Glucose 74 mg/dL (74-106)
--- NOTE | 2024-02-22 14:05 | PN_ITS ---
Subjective Subjective Patient seen and examined. She continues to remain lethargic and weak. She had increasing oxygen requirements overnight and had to be put on oxygen by nonrebreather mask. COVID test done was positive. She was also significantly fluid overloaded. She remains on oxygen via Venturi mask with FiO2 of 50% today. COVID test on was positive as stated though family is requesting for repeat COVID test today because they do not believe that she has COVID. SHe had no active complaitns this morning. She is off all 3 pressors. Her CRRT also stopped functioning overnight and so she is to have dialysis today. Objective Data Objective Data Vital Signs: Vital Signs Temp Pulse Resp BP Pulse Ox O2 Del Method O2 Flow Rate 98.2 F 119 H 25 H 104/58 L 97 Venturi Mask 15 02/22/24 12:13 02/22/24 13:00 02/22/24 13:00 02/22/24 13:00 02/22/24 13:00 02/22/24 13:00 02/22/24 11:45 FiO2 50 02/22/24 13:00 Oxygen Flow Rate (L/min) 15 Oxygen Delivery Method Venturi Mask Weight: 189 lb 6.033 oz Body Mass Index (BMI) 32.5 Intake & Output: Intake and Output for Last 24 Hours 02/20/24 02/21/24 02/22/24 23:59 23:59 23:59 Intake Total 9277.46 / 9351.01 3122.48 / 3122.48 322.33 / 322.33 Output Total 110 / 110 45 / 70 2495 / 2495 Balance 9167.46 / 9241.01 3077.48 / 3052.48 -2172.67 / -2172.67 Lab / Micro Data 02/22/24 03:18 02/22/24 03:18 Labs: Laboratory Results - last 24 hr 02/19/24 09:45: Crossmatch See Detail 02/21/24 13:15: Sodium 138, Potassium 4.8, Chloride 105, Carbon Dioxide 28.0, B UN 37 H, Creatinine 3.04 H, Estim Creat Clear Calc 16.91, Est GFR (MDRD) Af Amer 19 L, Est GFR (MDRD) Non-Af 16 L, BUN/Creatinine Ratio 12.2, Glucose 89, Calcium 7.3 L, Phosphorus 5.5 H, Albumin 1.8 L 02/21/24 18:19: POC Glucose 40 L* 02/21/24 21:14: POC Glucose 70 L 02/21/24 22:41: POC Glucose 71 L 02/21/24 22:42: Sodium 138, Potassium 4.6, Chloride 106, Carbon Dioxide 26.0, B UN 31 H, Creatinine 2.62 H, Estim Creat Clear Calc 19.62, Est GFR (MDRD) Af Amer 23 L, Est GFR (MDRD) Non-Af 19 L, BUN/Creatinine Ratio 11.8, Glucose 107 H, C alcium 7.5 L, Phosphorus 4.5, Albumin 1.7 L 02/22/24 00:06: POC Glucose 71 L 02/22/24 01:16: Hgb 10.0 L, Hct 29.7 L 02/22/24 03:18: WBC 6.9, RBC 3.53 L, Hgb 10.4 L, Hct 31.0 L, MCV 87.8, MCH 29.5, MCHC 33.5, RDW Std Deviation 47.6 H, RDW Coeff of Andrews 14.8 H, Plt Count 53 L, MPV 11.2, Immature Gran % (Auto) 1.800 H, Neut % (Auto) 82.7 H, Lymph % (Auto) 5.8 L, [place] % (Auto) 8.5, Eos % (Auto) 0.0, Baso % (Auto) 1.2 H, Absolute Neuts (auto) 5.7, Absolute Lymphs (auto) 0.40 L, Nucleated RBC % 0, Differential Comment SCANNED, Platelet Estimate MOD DEC, ESR 10, D-Dimer Quant (PE/DVT) > 20.00 H*, Sodium 138 02/22/24 03:18: Sodium 138, Potassium 4.6 02/22/24 03:18: Potassium 4.6, Chloride 106 02/22/24 03:18: Chloride 105, Carbon Dioxide 26.0 02/22/24 03:18: Carbon Dioxide 25.0, Anion Gap 6, BUN 34 H 02/22/24 03:18: BUN 35 H, Creatinine 2.85 H 02/22/24 03:18: Creatinine 2.83 H, Estim Creat Clear Calc 18.03 02/22/24 03:18: Estim Creat Clear Calc 18.16, Est GFR (MDRD) Af Amer 21 L 02/22/24 03:18: Est GFR (MDRD) Af Amer 21 L, Est GFR (MDRD) Non-Af 17 L 02/22/24 03:18: Est GFR (MDRD) Non-Af 17 L, BUN/Creatinine Ratio 11.9 02/22/24 03:18: BUN/Creatinine Ratio 12.4, Glucose 78 02/22/24 03:18: Glucose 79, Calcium 7.7 L 02/22/24 03:18: Calcium 7.7 L, Phosphorus 4.6, Ferritin 298 H, Total Bilirubin 3.90 H, Direct Bilirubin 3.19 H, AST 336 H, ALT 669 H, Alkaline Phosphatase 213 H, Lactate Dehydrogenase 1047 H, C-React Prot Ext Range 206.00 H, B-Natriuretic Peptide 496.0 H, Total Protein 4.2 L, Albumin 1.7 L 02/22/24 03:18: Albumin 1.7 L, Globulin 2.5 02/22/24 04:42: POC Glucose 60 L 02/22/24 05:22: POC Glucose 97 02/22/24 08:12: PT 17.5 H, INR 1.4, APTT 36.1 02/22/24 11:16: POC Glucose 74 Micro: Microbiology 02/22/24 13:05 Mucosa - Nose Coronavirus COVID-19 PCR - Final 02/19/24 17:40 Urine Catheter - Doran Urine Culture - Final Culture exhibits no growth. 02/22/24 01:16 Mucosa - Nasopharyngeal Coronavirus COVID-19 PCR - Final SARS-CoV-2 (COVID 19 PCR) 02/22/24 01:16 Mucosa - Nasopharyngeal Respiratory Panel (PCR) - Final 02/19/24 13:47 Blood Culture (Wb) - Anticubital Right Blood Culture - Preliminary No growth in 48 hours. 02/20/24 08:10 Nasal Secretion MRSA (PCR) - Final ABG Data ABG results: ABG 02/21/24 23:00 Specimen Type ART Sample Site Art Line pH 7.50 H Bicarbonate Actual 25.1 Total CO2 26 Base Excess 2 O2 Saturation 90 L O2 % 50.0 ABG pCO2 32.4 L ABG pO2 53 L O2 Delivery Device Venti Mask Vent Mode Not entered Radiography Diagnostic Testing: Radiology Impression Chest X-Ray 02/21/24 22:30 IMPRESSION: 1. Bilateral pleural effusions and associated airspace disease which may be atelectasis or pneumonia are similar to the prior examination. 2. Cardiomegaly and/or pericardial effusion is again identified. 3. Gaseous distention in the visualized upper abdominal bowel and stomach. Electronically Signed: Armaan Coelho, at 22:47 EDT , Physical Exam Const Constitutional Narrative: Patient remains very weak and frail and lethargic. Orientation / Consciousness: disoriented and lethargic HEENT normocephalic and head/scalp atraumatic Eyes PERRL, EOMs intact bilaterally and conjunctivae normal Neck no lymphadenopathy, supple and no JVD Lymph Lymphatic: no lymphadenopathy noted Resp Resp Narrative: moderately diminished breath sounds bilaterally, mild wheezing with bilateral crackles. On 50% oxygen by Venturi mask. Cardio regular rate, regular rhythm, S1 normal heart sound, S2 normal heart sound and no murmurs GI normal to inspection, nondistended, normoactive bowel sounds, soft to palpation, non-tender and non-distended GI Narrative: moderate generalized tenderness, no guarding and no rebound tenderness. Extremity normal to inspection, full ROM, normal capillary refill and no clubbing, cyanosis or edema Skin Skin Narrative: Patient looks very pale General Skin Exam: no breakdown and turgor normal Neuro Neuro Narrative: very weak and lethargic, frail and lethargic. Moves all extremities spontaneously. Motor Exam: general weakness Psych Psych Narrative: flat affect, lethargic Assessment & Plan Assessment/Plan (1) Acute upper gastrointestinal bleeding: (2) Acute hypotension: (3) Acute kidney injury: (4) Acute hypernatremia: PLAN: Plan #Shock likely multifactorial * Was admitted with a complaint of hematemesis and worsening shock. She had emergent EGD which showed a Phyllis-Coy tear which was clipped and treated with heater probe. Hb today is 10.6. * she required 3 pressors, but is now off all pressors. * She is on IV vancomycin and Zosyn due to concerns about septic shock also. Blood and urine cultures are negative so far. * she is also on IV hydrocortisone for shock. * She had EGD which as stated showed a Phyllis-Coy tear. * She had CT of the chest abdomen and pelvis which showed heterogeneous enlargement of the thyroid gland with right substernal extension, bilateral pleural effusions with bibasilar compressive atelectasis and/or infiltrate and moderate size hiatal hernia and findings suggestive of colitis in the left hemicolon with free fluid in the right hemipelvis. * Procalcitonin was more than 50 so she likely has an infective component also. * Now down to only Levophed; vasopressin and phenylephrine have been discontinued. * general surgery on board for possible ischemic bowel as CT scan showed possible left sided colitis. * #Possible ischemic colitis * CT findings as above. * general surgery on board and per their documentation, they are unsure of the etiology of the shock. To get an oral CT scan to evaluate the colon and or small bowel. Per general surgery, even if there are signs of ischemia, they are unsure if she would sruvive the surgery. General surgery recommends conservative management for now. * #Acute hypoxic respiratory failure * Due to COVID-19 infection as well as likely fluid overload. Patient required more oxygen overnight and is now 50% FiO2 via Venturi mask. * COVID test done overnight was positive. He is also in positive balance by about 15.2 L. * TO have dialysis today as CRRT malfunctioned overnight * started on remdesivir. Breathing treatment with bronchodilator * Titrate oxygen to maintain saturation above 90%. ID consulted. Pulmonology already on board. * Patient's family requested for repeat COVID test because they do not believe she had COVID. * Repeat COVID PCR test is negative. Will defer to ID about whether to take out of isolation or otherwise. * 2D echo from 02/20/2024 showed EF of 55% with no evidence of diastolic dysfunction. * #Acute blood loss anemia * Likely due to upper GI bleed. Hb has been stable. * Patient and family do not want transfusion. Her son was however willing to donate blood and patient states he is willing to take blood from a family member. * Of note they are not [employer]'s [employer]es but they have their own unique beliefs that preclude her from getting blood. * * #Persistent Lactic acidosis: * Lactic acid was elevated but this is to be expected in light of the shock. * Urine cultures negative; blood cultures still pending. * Trend lactic acid. It still remains elevated. #DAGOBERTO with anion gap metabolic acidosis likely due to ischemic ATN * Creatinine is down to 2.83 from 3.73 yesterday. Potassium is 4.6. She was started on CRRT yesterday but there was some malfunction so CRRT was stopped. She is for hemodialysis today now that she is off vasopressors. * Bicarb is now 25. * Nephrology on board. * #Ischemic hepatitis * Likely due to shock liver from hypotension and anemia. AST and ALT elevated as well as total bilirubin. * Total bilirubin today is 3.9. AST as well as ALT and ALP continue to trend downwards. * gastroenterology on board. * #Schizophrenia and bipolar disorder: Hold her current medications as she is NPO. DVT prophylaxis: SCDs. No anticoagulation due to GI bleed. CODE STATUS: Full code * P PRognosis: guarded. Charges/Coding Visit Charges Inpatient E&M: 62425 Subs Hosp L3
--- NOTE | 2024-02-22 18:14 | EX.PCM.PN.GI ---
Subjective Subjective Patient was diagnosed with COVID. She is currently in isolation. Objective Data Objective Data Vital Signs: Vital Signs Temp Pulse Resp BP Pulse Ox O2 Del Method O2 Flow Rate 98.2 F 124 H 21 H 111/56 L 95 Nasal Cannula 5 02/22/24 16:00 02/22/24 16:00 02/22/24 16:00 02/22/24 16:00 02/22/24 16:00 02/22/24 16:00 02/22/24 16:00 FiO2 50 02/22/24 13:00 Oxygen Flow Rate (L/min) 5 Oxygen Delivery Method Nasal Cannula Weight: 189 lb 6.033 oz Body Mass Index (BMI) 32.5 Intake & Output: Intake and Output for Last 24 Hours 02/20/24 02/21/24 02/22/24 23:59 23:59 23:59 Intake Total 9277.46 / 9351.01 3122.48 / 3122.48 410.16 / 410.16 Output Total 110 / 110 45 / 70 2495 / 2495 Balance 9167.46 / 9241.01 3077.48 / 3052.48 -2084.84 / -2084.84 Lab / Micro Data 02/22/24 03:18 02/22/24 03:18 Labs: Laboratory Results - last 24 hr 02/19/24 09:45: Crossmatch See Detail 02/21/24 18:19: POC Glucose 40 L* 02/21/24 21:14: POC Glucose 70 L 02/21/24 22:41: POC Glucose 71 L 02/21/24 22:42: Sodium 138, Potassium 4.6, Chloride 106, Carbon Dioxide 26.0, BUN 31 H, Creatinine 2.62 H, Estim Creat Clear Calc 19.62, Est GFR (MDRD) Af Amer 23 L, Est GFR (MDRD) Non-Af 19 L, BUN/Creatinine Ratio 11.8, Glucose 107 H, Calcium 7.5 L, Phosphorus 4.5, Albumin 1.7 L 02/22/24 00:06: POC Glucose 71 L 02/22/24 01:16: Hgb 10.0 L, Hct 29.7 L 02/22/24 03:18: WBC 6.9, RBC 3.53 L, Hgb 10.4 L, Hct 31.0 L, MCV 87.8, MCH 29.5, MCHC 33.5, RDW Std Deviation 47.6 H, RDW Coeff of [place] 14.8 H, Plt Count 53 L, MPV 11.2, Immature Gran % (Auto) 1.800 H, Neut % (Auto) 82.7 H, Lymph % (Auto) 5.8 L, [place] % (Auto) 8.5, Eos % (Auto) 0.0, Baso % (Auto) 1.2 H, Absolute Neuts (auto) 5.7, Absolute Lymphs (auto) 0.40 L, Nucleated RBC % 0, Differential Comment SCANNED, Platelet Estimate MOD DEC, ESR 10, D-Dimer Quant (PE/DVT) > 20.00 H*, Sodium 138 02/22/24 03:18: Sodium 138, Potassium 4.6 02/22/24 03:18: Potassium 4.6, Chloride 106 02/22/24 03:18: Chloride 105, Carbon Dioxide 26.0 02/22/24 03:18: Carbon Dioxide 25.0, Anion Gap 6, BUN 34 H 02/22/24 03:18: BUN 35 H, Creatinine 2.85 H 02/22/24 03:18: Creatinine 2.83 H, Estim Creat Clear Calc 18.03 02/22/24 03:18: Estim Creat Clear Calc 18.16, Est GFR (MDRD) Af Amer 21 L 02/22/24 03:18: Est GFR (MDRD) Af Amer 21 L, Est GFR (MDRD) Non-Af 17 L 02/22/24 03:18: Est GFR (MDRD) Non-Af 17 L, BUN/Creatinine Ratio 11.9 02/22/24 03:18: BUN/Creatinine Ratio 12.4, Glucose 78 02/22/24 03:18: Glucose 79, Calcium 7.7 L 02/22/24 03:18: Calcium 7.7 L, Phosphorus 4.6, Ferritin 298 H, Total Bilirubin 3.90 H, Direct Bilirubin 3.19 H, AST 336 H, ALT 669 H, Alkaline Phosphatase 213 H, Lactate Dehydrogenase 1047 H, C-React Prot Ext Range 206.00 H, B-Natriuretic Peptide 496.0 H, Total Protein 4.2 L, Albumin 1.7 L 02/22/24 03:18: Albumin 1.7 L, Globulin 2.5 02/22/24 04:42: POC Glucose 60 L 02/22/24 05:22: POC Glucose 97 02/22/24 08:12: PT 17.5 H, INR 1.4, APTT 36.1 02/22/24 11:16: POC Glucose 74 Micro: Microbiology 02/22/24 01:16 Mucosa - Nasopharyngeal Coronavirus COVID-19 PCR - Final SARS-CoV-2 (COVID 19 PCR) 02/22/24 01:16 Mucosa - Nasopharyngeal Respiratory Panel (PCR) - Final 02/22/24 13:05 Mucosa - Nose Coronavirus COVID-19 PCR - Final 02/19/24 17:40 Urine Catheter - Doran Urine Culture - Final Culture exhibits no growth. 02/19/24 13:47 Blood Culture (Wb) - Anticubital Right Blood Culture - Preliminary No growth in 48 hours. 02/20/24 08:10 Nasal Secretion MRSA (PCR) - Final ABG Data ABG results: ABG 02/21/24 23:00 Specimen Type ART Sample Site Art Line pH 7.50 H Bicarbonate Actual 25.1 Total CO2 26 Base Excess 2 O2 Saturation 90 L O2 % 50.0 ABG pCO2 32.4 L ABG pO2 53 L O2 Delivery Device Venti Mask Vent Mode Not entered Radiography Diagnostic Testing: Radiology Impression Chest X-Ray 02/21/24 22:30 IMPRESSION: 1. Bilateral pleural effusions and associated airspace disease which may be atelectasis or pneumonia are similar to the prior examination. 2. Cardiomegaly and/or pericardial effusion is again identified. 3. Gaseous distention in the visualized upper abdominal bowel and stomach. Electronically Signed: Armaan Coelho DO at 22:47 EDT , Physical Exam Const General Appearance: lethargic Orientation / Consciousness: confused HEENT normocephalic and head/scalp atraumatic Eyes PERRL and EOMs intact bilaterally Neck supple and No nodes Resp Auscultation: diminished lung sounds Cardio Rate: tachycardic GI soft to palpation, non-tender and non-distended Extremity General Extremity: edema Skin no rashes or lesions noted Neuro Neuro Narrative: some unintelligible speech Assessment & Plan Assessment/Plan (1) Ischemic colitis: (2) Elevated bilirubin: (3) Ischemic hepatitis: PLAN: Plan 78-year-old with schizophrenia who comes in with hypotension for unknown reason and discovered to have a severe lactic acidosis with acute kidney injury and acute liver injury. She was discovered to have inflammation throughout the colon likely consistent with ischemic colitis. She is currently being seen by nephrology for renal replacement therapy. -Ischemic colitis-I agree with surgery that I do not think that her severe lactic acidosis and imaging is consistent with severe ischemia involving the colon. There is not any sign of mesenteric ischemia at this time. Hopefully lactic acidosis will improve with renal replacement therapy -Ischemic hepatitis-secondary to severe hypotension. LFTs and bilirubin are improving. I will hold off on liver biopsy at this time as her INR has not gotten any worse than 1.7 so I think her acute liver injury from ischemic hepatitis is improving. Continue to monitor LFTs, ESR, CRP, lactic acid and INR 02/22/2024-patient has jaundice with cholestatic hepatitis with I think is multifactorial secondary to none hepatitis virus acute hepatitis plus ischemic hepatitis in the setting of poor clearance from the liver secondary to acute kidney injury. Liver biopsy was ordered today but they are going to do it tomorrow. Liver biopsy will help see if there is any necrosis, autoimmune induced injury to the liver. Patient is very adamant against any treatment for COVID. Guarded prognosis. Charges/Coding Visit Charges Inpatient E&M: 35497 Subs Hosp L3
[2024-02-22 18:25] LABS: Bedside Glucose 69 mg/dL (74-106)
--- NOTE | 2024-02-22 20:19 | CPS ---
Patient refused PAP therapy for night time use.
[2024-02-22 20:21] LABS: Ammonia < 10.0 umol/L (11-32)
--- NOTE | 2024-02-22 20:35 | NURSING ---
This RN has been into the patient room multiple times to address reinforcement of the right armboard dressing in place to protect Art Line. Patient is confused; able to follow commands for a short time, but will shortly resume behavior after a period without direction. This RN will continue to monitor and gently remind patient; but due to Covid precautions, a one sided arm soft restraint may be warranted if patient behavior will/can not cease.
[2024-02-23] VITALS (41 sets, daily range): BP systolic 71–217; BP diastolic 46–69; PULSE 98–127; RESP 14–23; TEMP 36.2–37.4; O2SAT 91–100; BMI 33.5; BMI 31.7
[2024-02-23] MEDS: Dextrose 5%/0.9% NaCl 1,000 ML 50 ML IV (00:34)
[2024-02-23] MEDS: Hydrocortisone Sod Succinate 100 MG/2 ML Vial 50 MG IV ×3 (00:34→20:13)
[2024-02-23] MEDS: Dextrose 10%-Water 250 ML IV (00:40)
[2024-02-23 01:10] LABS: Bedside Glucose 63 mg/dL (74-106)
[2024-02-23 01:16] LABS: Bedside Glucose 80 mg/dL (74-106)
--- NOTE | 2024-02-23 02:05 | PCM.HOSP.N ---
Hospitalist Note Patient with recurrent hypoglycemia. Will change from D5NS to D10NS.
[2024-02-23] MEDS: Sodium Chloride 19.25 MEQ in Dextrose 10%-Water 250 ML 40 MEQ IV ×2 (02:40→10:11)
[2024-02-23] MEDS: Pantoprazole Sodium 80 MG in 0.9% Normal Saline (100mL Bag) 80 ML 10 MG CONT INF ×2 (04:30→15:07)
[2024-02-23 05:08] LABS: Hematocrit 28.1 % (37-47); Hemoglobin 9.3 g/dL (12.0-15.0); Mean Corp Hgb Conc 33.1 g/dL (32-36); Mean Corpuscular Hgb 29.2 pg (27.0-32.0); Mean Corpuscular Volume 88.4 fL (81-99); Mean Platelet Vol. 11.4 fl (6.2-12.0); POSITIVE COUNT YES; POSITIVE DIFFERENTIAL YES; POSITIVE MORPHOLOGY YES; RBC Distribution Width CV 15.2 % (11.6-14.6); RBC Distribution Width SD 49.8 fl (35.1-43.9); Red Blood Count 3.18 M/mm3 (4.2-5.4); White Blood Count 6.3 K/mm3 (4.4-11.0)
[2024-02-23 05:15] LABS: Differential Indicated MANUAL DIFF; Platelet Count 36 K/mm3 (150-450)
[2024-02-23 05:33] LABS: Anion Gap 7 (5-15); BUN 50 mg/dL (7-18); Calcium,Total 7.6 mg/dL (8.5-10.1); Chloride 107 mmol/L (98-107); Creatinine, Serum 4.17 mg/dL (0.55-1.02); EST Glomerular Filtration Rate 11 mL/min (>60); Est Glom Filt Rate - Afr Amer 13 mL/min (>60); Estimated Creatinine Clearance 12.17 ml/min; Glucose 105 mg/dL (74-106); Potassium 4.5 mmol/L (3.5-5.1); Sodium Level 140 mmol/L (136-145)
[2024-02-23 05:50] LABS: CPK Total, Creatine Kinase 267 U/L (26-192)
[2024-02-23] MEDS: Piperacil/Tazobactam 3.375 GM in 0.9% Normal Saline (50mL MB+) 50 ML IV ×2 (06:36→18:06)
[2024-02-23 07:02] LABS: Bedside Glucose 82 mg/dL (74-106)
[2024-02-23 07:17] LABS: Basophil 1 % (0-1); Lymphocyte 13 % (19-41); Monocyte 4 % (0-10); Myelocyte 3 % (0-0); Neutrophil-Band 22 % (0-5); Neutrophil-Segmented 57 % (47-70); Total Cells Counted 100 (MANUAL DIFF)
--- NOTE | 2024-02-23 07:17 | PCM.PN.INT ---
Assessment & Plan Assessment/Plan (1) Acute hypotension: PLAN: Plan RECOMMENDATIONS: 1. Continue ongoing dialysis support per nephrology recommendations. 2. Continue empiric antibiotics. 3. Continue stress dose steroids as ordered. Will begin to wean today as tolerated. 4. Continue PPI therapy. 5. Initiate TPN for nutritional support. IMPRESSIONS: 1. Undifferentiated shock with persistent lactic acidemia The patient initially presented to the hospital with concern for an upper GI bleed with associated hypotension. She was taken urgently to endoscopy, where a Phyllis-Coy tear was identified. Endoscopic intervention was performed. However, despite the aforementioned interventions, the patient has continued to decompensate from a clinical perspective, with worsening hypotension. Other potential considerations include sepsis and PE. However, the patient's creatinine has worsened, which would preclude the ability to obtain a contrasted CT chest. Echocardiogram revealed intact systolic function without evidence of RV dysfunction or pulmonary hypertension, making large PE rather unlikely. For now, the patient will be continued on empiric antimicrobials. CT imaging the abdomen did reveal nonspecific colitis involving the colon, potentially ischemic in etiology. General surgery is currently following. Continue supportive measures. 2. Acute hypoxemic respiratory failure Most likely multifactorial in etiology with hypervolemia and COVID-19 pneumonia contributing. Continue supportive measures including supplemental oxygen to maintain saturations at or above 90%. The patient is already on steroids, which will be continued. Recommend further attempts at volume optimization via dialysis, if feasible. 3. Acute kidney injury Improving. Most likely prerenal in etiology in the setting of #1, with evolution to ischemic ATN. Continue ongoing dialysis support per nephrology recommendations. 4. Ischemic hepatitis Improving. Continue to monitor transaminase levels daily. Anticipate improvement with stabilization of hemodynamics. 5. Acute metabolic encephalopathy Most likely related to #1 with accompanying metabolic derangements and infection. The patient is significantly debilitated. 6. Thrombocytopenia Differential to include infection versus DIC in the setting of acute liver injury. Will check fibrinogen and D-dimer. Transaminases continue to improve. 7. History of bipolar disorder/schizophrenia Complicates care, management, recovery and prognosis. Continue supportive measures as noted above. TIME: 32 minutes of critical care time, independent of procedures, was spent addressing the patient's undifferentiated shock, acute kidney injury, ischemic hepatitis, metabolic encephalopathy, review of all data and collaboration with the care team. Subjective Subjective The patient was seen and examined at the bedside this morning. Events from the last 24 hours have been reviewed. The patient is currently afebrile, hemodynamically stable and maintaining appropriate oxygen saturations on 5 L/min via nasal cannula. The patient was once again noted to be hypoglycemic overnight and was subsequently transition to D10 fluids. In addition, nursing staff reported that she is having bloody bowel movements. Her white blood cell count is normal. Hemoglobin has dropped to 9.3 g/dL. Platelet count is low at 36,000. Objective Data Objective Data The patient's most recent lab work, culture data and imaging studies have all been personally reviewed. Surface echocardiogram demonstrated normal LV size and function with an ejection fraction of 55%. There was no evidence of RV dysfunction or pulmonary hypertension. Blood and urine cultures are pending. COVID PCR was positive on February 21. Vital Signs: Vital Signs Temp Pulse Resp BP Pulse Ox O2 Del Method O2 Flow Rate 97.5 F L 117 H 23 H 127/63 H 91 Nasal Cannula 5 02/23/24 06:00 02/23/24 07:00 02/23/24 07:00 02/23/24 07:00 02/23/24 07:00 02/23/24 07:00 02/23/24 07:00 FiO2 50 02/22/24 13:00 Oxygen Flow Rate (L/min) 5 Oxygen Delivery Method Nasal Cannula Weight: 195 lb 1.745 oz Body Mass Index (BMI) 33.5 Intake & Output: Intake and Output for Last 24 Hours 02/21/24 02/22/24 02/23/24 23:59 23:59 23:59 Intake Total 3122.48 / 3122.48 585.16 / 644.83 1298.33 / 1298.33 Output Total 45 / 70 2520 / 2535 15 / 15 Balance 3077.48 / 3052.48 -1934.84 / -1890.17 1283.33 / 1283.33 Lab / Micro Data Attestation: I reviewed the patient's lab results. 02/23/24 04:50 02/23/24 04:50 Labs: Laboratory Results - last 24 hr 02/19/24 09:45: Crossmatch See Detail 02/22/24 04:42: POC Glucose 60 L 02/22/24 05:22: POC Glucose 97 02/22/24 08:12: PT 17.5 H, INR 1.4, APTT 36.1 02/22/24 11:16: POC Glucose 74 02/22/24 18:07: POC Glucose 69 L 02/22/24 19:50: Ammonia < 10.0 L 02/23/24 00:32: POC Glucose 63 L 02/23/24 00:55: POC Glucose 80 02/23/24 04:50: WBC 6.3, RBC 3.18 L, Hgb 9.3 L, Hct 28.1 L, MCV 88.4, MCH 29.2, MCHC 33.1, RDW Std Deviation 49.8 H, RDW Coeff of Andrews 15.2 H, Plt Count 36 L*, MPV 11.4, Neut % (Auto) Not Reportable, Sodium 140, Potassium 4.5, Chloride 107, Carbon Dioxide 25.0, Anion Gap 7, BUN 50 H, Creatinine 4.17 H, Estim Creat Clear Calc 12.17, Est GFR (MDRD) Af Amer 13 L, Est GFR (MDRD) Non-Af 11 L, BUN/Creatinine Ratio 12.0, Glucose 105, Calcium 7.6 L, Total Creatine Kinase 267 H 02/23/24 06:34: POC Glucose 82 Micro: Microbiology 02/22/24 01:16 Mucosa - Nasopharyngeal Coronavirus COVID-19 PCR - Final SARS-CoV-2 (COVID 19 PCR) 02/22/24 01:16 Mucosa - Nasopharyngeal Respiratory Panel (PCR) - Final 02/22/24 13:05 Mucosa - Nose Coronavirus COVID-19 PCR - Final 02/19/24 17:40 Urine Catheter - Doran Urine Culture - Final Culture exhibits no growth. 02/19/24 13:47 Blood Culture (Wb) - Anticubital Right Blood Culture - Preliminary No growth in 48 hours. 02/20/24 08:10 Nasal Secretion MRSA (PCR) - Final ABG Data ABG results: ABG 02/21/24 02/21/24 08:42 23:00 Specimen Type ART ART Sample Site Art Line Art Line pH 7.47 H 7.50 H Bicarbonate Actual 23.0 25.1 Total CO2 24 26 Base Excess -1 2 O2 Saturation 97 90 L O2 % 4.0 50.0 ABG pCO2 31.9 L 32.4 L ABG pO2 83 53 L O2 Delivery Device Cannula Venti Mask Vent Mode Not entered Not entered Radiography Diagnostic Testing: Radiology Impression Venous Doppler Study 02/22/24 02:30 Interpretation Summary Deep veins of the lower extremities are bilaterally patent and compressible segmentally. There is no evidence of deep vein thrombosis on either side. Valvular competence appears intact within the proximal deep venous systems bilaterally. The great saphenous veins appear bilaterally patent and compressible segmentally. Pulsatile flow is noted in the deep venous system bilaterally, which may be indicative of elevated central venous pressure (i.e. congestive heart failure, pulmonary hypertension, etc.). Clinical correlation is advised. Ordering Physician: Usha Dowd Referring Physician: Precious Aleman Performed By: Des Hernandez, RVT Physical Exam Const General Appearance: lethargic and ill appearing HEENT normocephalic and head/scalp atraumatic Eyes PERRL, EOMs intact bilaterally and conjunctivae normal Neck supple General: trachea midline and CVC in place Chest inspection of chest normal Resp normal respiratory effort Auscultation: diminished lung sounds Cardio S1 normal heart sound and S2 normal heart sound Rate: tachycardic GI soft to palpation Auscultation: normoactive bowel sounds Extremity no clubbing, cyanosis or edema Skin no rashes or lesions noted Neuro CN's II-XII intact bilaterally, moves all extremities and no focal motor deficits Psych Mood & Affect: flat affect Charges/Coding Procedures Hospitalists Procedures: 07153 Critical Care 1st Hr
[2024-02-23 07:18] LABS: Absolute Lymphocyte Count 0.82 X10^3/uL (0.83-4.51)
[2024-02-23 07:19] LABS: Differential Comment SCANNED; Platelet Estimate MKD DEC (ADEQ)
[2024-02-23 08:17] LABS: International Normalized Ratio 1.2; Prothrombin Time (Protime)PT. 14.7 SECONDS (11.7-14.9)
[2024-02-23 08:18] LABS: Fibrinogen 522 mg/dl (203-444)
[2024-02-23 08:25] LABS: AST(SGOT) 131 U/L (15-37); Alanine Aminotransfer ALT/SGPT 397 U/L (13-56); Albumin, Serum 1.6 g/dL (3.2-5.0); Alkaline Phosphatase 316 U/L (45-117); Bilirubin, Direct 3.98 mg/dL (0.00-0.30); Globulin 2.6 g/dL (2.2-4.2); Protein, Total 4.2 g/dL (6.4-8.2)
--- NOTE | 2024-02-23 08:31 | PN.SURG_ITS ---
Subjective Subjective Patient still having some abdominal pain and she started having more bloody bowel movements overnight Objective Data Objective Data Vital Signs: Vital Signs Temp Pulse Resp BP Pulse Ox O2 Del Method O2 Flow Rate 99.4 F H 112 H 22 H 125/60 H 98 Nasal Cannula 5 02/23/24 08:17 02/23/24 08:17 02/23/24 08:17 02/23/24 08:17 02/23/24 08:17 02/23/24 08:17 02/23/24 08:17 FiO2 50 02/22/24 13:00 Oxygen Flow Rate (L/min) 5 Oxygen Delivery Method Nasal Cannula Weight: 195 lb 1.745 oz Body Mass Index (BMI) 33.5 Intake & Output: Intake and Output for Last 24 Hours 02/21/24 02/22/24 02/23/24 23:59 23:59 23:59 Intake Total 3122.48 / 3122.48 585.16 / 644.83 1298.33 / 1298.33 Output Total 45 / 70 2520 / 2535 Balance 3077.48 / 3052.48 -1934.84 / -1890.17 1283.33 / 1283.33 Lab / Micro Data 02/23/24 04:50 02/23/24 04:50 Labs: Laboratory Results - last 24 hr 02/19/24 09:45: Crossmatch See Detail 02/22/24 04:42: POC Glucose 60 L 02/22/24 05:22: POC Glucose 97 02/22/24 08:12: PT 17.5 H, INR 1.4, APTT 36.1 02/22/24 11:16: POC Glucose 74 02/22/24 18:07: POC Glucose 69 L 02/22/24 19:50: Ammonia < 10.0 L 02/23/24 00:32: POC Glucose 63 L 02/23/24 00:55: POC Glucose 80 02/23/24 04:50: WBC 6.3, RBC 3.18 L, Hgb 9.3 L, Hct 28.1 L, MCV 88.4, MCH 29.2, MCHC 33.1, RDW Std Deviation 49.8 H, RDW Coeff of Andrews 15.2 H, Plt Count 36 L*, MPV 11.4, Neut % (Auto) Not Reportable, Absolute Neuts (auto) 5.0, Absolute Lymphs (auto) 0.82 L, Total Counted 100, Neutrophils % (Manual) 57, Band Neutrophils % 22 H, Lymphocytes % (Manual) 13 L, Monocytes % (Manual) 4, Basophils % (Manual) 1, Myelocytes % 3 H, Differential Comment SCANNED, Diff Path Review May foll, Platelet Estimate MKD DEC, Sodium 140, Potassium 4.5, Chloride 107, Carbon Dioxide 25.0, Anion Gap 7, BUN 50 H, Creatinine 4.17 H, Estim Creat Clear Calc 12.17, Est GFR (MDRD) Af Amer 13 L, Est GFR (MDRD) Non-Af 11 L, BUN/Creatinine Ratio 12.0, Glucose 105, Calcium 7.6 L, Total Creatine Kinase 267 H 02/23/24 06:34: POC Glucose 82 02/23/24 07:45: PT 14.7, INR 1.2, Fibrinogen 522 H, Total Bilirubin 4.70 H, D irect Bilirubin 3.98 H, AST 131 H, ALT 397 H, Alkaline Phosphatase 316 H, Total Protein 4.2 L, Albumin 1.6 L, Globulin 2.6 Micro: Microbiology 02/22/24 01:16 Mucosa - Nasopharyngeal Coronavirus COVID-19 PCR - Final SARS-CoV-2 (COVID 19 PCR) 02/22/24 01:16 Mucosa - Nasopharyngeal Respiratory Panel (PCR) - Final 02/22/24 13:05 Mucosa - Nose Coronavirus COVID-19 PCR - Final 02/19/24 17:40 Urine Catheter - Doran Urine Culture - Final Culture exhibits no growth. 02/19/24 13:47 Blood Culture (Wb) - Anticubital Right Blood Culture - Preliminary No growth in 48 hours. 02/20/24 08:10 Nasal Secretion MRSA (PCR) - Final Radiography Diagnostic Testing: Radiology Impression Venous Doppler Study 02/22/24 02:30 Interpretation Summary Deep veins of the lower extremities are bilaterally patent and compressible segmentally. There is no evidence of deep vein thrombosis on either side. Valvular competence appears intact within the proximal deep venous systems bilaterally. The great saphenous veins appear bilaterally patent and compressible segmentally. Pulsatile flow is noted in the deep venous system bilaterally, which may be indicative of elevated central venous pressure (i.e. congestive heart failure, pulmonary hypertension, etc.). Clinical correlation is advised. Ordering Physician: Usha Dowd Referring Physician: Precious Aleman Performed By: Des Hernandez RVT Physical Exam Const no apparent distress Resp normal respiratory effort GI soft to palpation Palpation: tender LLQ, RLQ, LUQ and RUQ Extremity normal to inspection Assessment & Plan Assessment/Plan (1) Ischemic colitis: PLAN: The patient started having bloody bowel movements. Patient may need colonoscopy for evaluation but unfortunately the patient's platelets have dropped to 36. DIC panel is pending. Continue IV hydration and n.p.o. with sips and chips. Deacon Peter MD Pager: [facility] [address] [place] [address], [address] [place] [address] Office:
[2024-02-23 08:35] LABS: D-Dimer Quantitative (DVT/PE) > 20.00 FEU/ug/m (0.27-0.49)
[2024-02-23] MEDS: 0.9% Normal Saline 1,000 ML IV.SOLN. 1000 ML OPERA.SITE (09:28)
[2024-02-23] MEDS: PureFlow B 2K Dialysis Soln 1 BAG 6 BAG PF (09:28)
--- NOTE | 2024-02-23 10:12 | PCM.PN.REN ---
Subjective Subjective Seen and examined during dialysis today. Patient resting quietly. Objective Data Objective Data Vital Signs: Vital Signs Temp Pulse Resp BP Pulse Ox O2 Del Method O2 Flow Rate 97.2 F L 99 16 120/59 L 97 Nasal Cannula 5 02/23/24 09:20 02/23/24 10:01 02/23/24 10:01 02/23/24 10:01 02/23/24 10:01 02/23/24 10:01 02/23/24 10:01 FiO2 50 02/22/24 13:00 Oxygen Flow Rate (L/min) 5 Oxygen Delivery Method Nasal Cannula Weight: 88.5 kg Body Mass Index (BMI) 33.5 Intake & Output: Intake and Output for Last 24 Hours 02/21/24 02/22/24 02/23/24 23:59 23:59 23:59 Intake Total 3122.48 / 3122.48 585.16 / 644.83 1553.1425 / 1553.1425 Output Total 45 / 70 2520 / 2535 15 / Balance 3077.48 / 3052.48 -1934.84 / -1890.17 1538.1425 / 1538.1425 Lab / Micro Data 02/23/24 04:50 02/23/24 04:50 Labs: Laboratory Results - last 24 hr 02/22/24 11:16: POC Glucose 74 02/22/24 18:07: POC Glucose 69 L 02/22/24 19:50: Ammonia < 10.0 L 02/23/24 00:32: POC Glucose 63 L 02/23/24 00:55: POC Glucose 80 02/23/24 04:50: WBC 6.3, RBC 3.18 L, Hgb 9.3 L, Hct 28.1 L, MCV 88.4, MCH 29.2, MCHC 33.1, RDW Std Deviation 49.8 H, RDW Coeff of Andrews 15.2 H, Plt Count 36 L*, MPV 11.4, Neut % (Auto) Not Reportable, Absolute Neuts (auto) 5.0, Absolute Lymphs (auto) 0.82 L, Total Counted 100, Neutrophils % (Manual) 57, Band Neutrophils % 22 H, Lymphocytes % (Manual) 13 L, Monocytes % (Manual) 4, Basophils % (Manual) 1, Myelocytes % 3 H, Differential Comment SCANNED, Diff Path Review May foll, Platelet Estimate MKD DEC, Sodium 140, Potassium 4.5, Chloride 107, Carbon Dioxide 25.0, Anion Gap 7, BUN 50 H, Creatinine 4.17 H, Estim Creat Clear Calc 12.17, Est GFR (MDRD) Af Amer 13 L, Est GFR (MDRD) Non-Af 11 L, BUN/Creatinine Ratio 12.0, Glucose 105, Calcium 7.6 L, Total Creatine Kinase 267 H 02/23/24 06:34: POC Glucose 82 02/23/24 07:45: PT 14.7, INR 1.2, Fibrinogen 522 H, D-Dimer Quant (PE/DVT) > 20.00 H*, Total Bilirubin 4.70 H, Direct Bilirubin 3.98 H, AST 131 H, ALT 397 H, Alkaline Phosphatase 316 H, Total Protein 4.2 L, Albumin 1.6 L, Globulin 2.6 Micro: Microbiology 02/22/24 01:16 Mucosa - Nasopharyngeal Coronavirus COVID-19 PCR - Final SARS-CoV-2 (COVID 19 PCR) 02/22/24 01:16 Mucosa - Nasopharyngeal Respiratory Panel (PCR) - Final 02/22/24 13:05 Mucosa - Nose Coronavirus COVID-19 PCR - Final 02/19/24 17:40 Urine Catheter - Emmanuel Urine Culture - Final Culture exhibits no growth. 02/19/24 13:47 Blood Culture (Wb) - Anticubital Right Blood Culture - Preliminary No growth in 48 hours. 02/20/24 08:10 Nasal Secretion MRSA (PCR) - Final Radiography Diagnostic Testing: Radiology Impression Venous Doppler Study 02/22/24 02:30 Interpretation Summary Deep veins of the lower extremities are bilaterally patent and compressible segmentally. There is no evidence of deep vein thrombosis on either side. Valvular competence appears intact within the proximal deep venous systems bilaterally. The great saphenous veins appear bilaterally patent and compressible segmentally. Pulsatile flow is noted in the deep venous system bilaterally, which may be indicative of elevated central venous pressure (i.e. congestive heart failure, pulmonary hypertension, etc.). Clinical correlation is advised. Ordering Physician: Usha Dowd Referring Physician: Precious Aleman Performed By: Des Hernandez, JETT Physical Exam Narrative Awake, resting quietly, alert. S1 S2 RRR diminished breath sounds, on nasal canula abdomen soft, tender edema noted to b/l LE and thighs non-tunneled right IJ HD catheter accessed for dialysis emmanuel with scant yellow urine in bag Assessment & Plan Assessment/Plan (1) Acute kidney injury: PLAN: Acute renal failure with normal baseline serum creatinine. Presumably ATN due to septic shock. No hydronephrosis on CT. Patient essentially anuric with worsening azotemia, hyperkalemia therefore patient initiated on CRRT 02/20. Taken off CRRT early am 02/21. Blood pressures have improved and currently off IV pressors. Patient underwent and tolerated ultrafiltration 02/21 with no clearance and tolerated around 2.5 L fluid removal. Echo EF 55%, no evidence for diastolic dysfunction. SCr rising, 4.17 today, UOP yesterday 60ml, no noted renal recovery therefore patient undergoing hemodialysis today and attempting ~3-3.5L fluid removal as pt/bp tolerates. If bps begin to drop during dialysis can use levophed prn so to help facilitate more fluid removal with dialysis. Continue to monitor for renal recovery. Lactic acidosis. Presumably of colon origin. Surgery consulted, no plans for intervention at this time. Patient now having bloody bowel movements. Platelet counts dropping. Patient does not get heparin with dialysis. Hypoxic respiratory failure, COVID-positive; IV antibiotics and steroids. Blood culture, urine cx no growth. Oxygen requirements improved, now on nasal cannula
--- NOTE | 2024-02-23 11:43 | PN_ITS ---
Subjective Subjective Patient seen and examined. She remains very weak and lethargic. She is quite confused and just mumbles in response to questions. Unable to do comprehensive review of systems. Her was by her bedside. She was due to have a liver biopsy today but could not have it done because her platelets had dropped to 36. She is down to 5 L of oxygen today. Repeat COVID test done yesterday was negative. Objective Data Objective Data Vital Signs: Vital Signs Temp Pulse Resp BP Pulse Ox O2 Del Method O2 Flow Rate 97.2 F L 108 H 22 H 128/63 H 95 Nasal Cannula 5 02/23/24 09:20 02/23/24 11:30 02/23/24 11:30 02/23/24 11:30 02/23/24 11:30 02/23/24 11:30 02/23/24 11:30 FiO2 50 02/22/24 13:00 Oxygen Flow Rate (L/min) 5 Oxygen Delivery Method Nasal Cannula Weight: 195 lb 1.745 oz Body Mass Index (BMI) 33.5 Intake & Output: Intake and Output for Last 24 Hours 02/21/24 02/22/24 02/23/24 23:59 23:59 23:59 Intake Total 3122.48 / 3122.48 585.16 / 644.83 1553.1425 / 1553.1425 Output Total 45 / 70 2520 / 2535 15 Balance 3077.48 / 3052.48 -1934.84 / -1890.17 1538.1425 / 1538.1425 Lab / Micro Data 02/23/24 04:50 02/23/24 04:50 Labs: Laboratory Results - last 24 hr 02/22/24 11:16: POC Glucose 74 02/22/24 18:07: POC Glucose 69 L 02/22/24 19:50: Ammonia < 10.0 L 02/23/24 00:32: POC Glucose 63 L 02/23/24 00:55: POC Glucose 80 02/23/24 04:50: WBC 6.3, RBC 3.18 L, Hgb 9.3 L, Hct 28.1 L, MCV 88.4, MCH 29.2, MCHC 33.1, RDW Std Deviation 49.8 H, RDW Coeff of Andrews 15.2 H, Plt Count 36 L*, MPV 11.4, Neut % (Auto) Not Reportable, Absolute Neuts (auto) 5.0, Absolute Lymphs (auto) 0.82 L, Total Counted 100, Neutrophils % (Manual) 57, Band Neutrophils % 22 H, Lymphocytes % (Manual) 13 L, Monocytes % (Manual) 4, Basophils % (Manual) 1, Myelocytes % 3 H, Differential Comment SCANNED, Diff Path Review May foll, Platelet Estimate MKD DEC, Sodium 140, Potassium 4.5, Chloride 107, Carbon Dioxide 25.0, Anion Gap 7, BUN 50 H, Creatinine 4.17 H, Estim Creat Clear Calc 12.17, Est GFR (MDRD) Af Amer 13 L, Est GFR (MDRD) Non-Af 11 L, BUN/Creatinine Ratio 12.0, Glucose 105, Calcium 7.6 L, Total Creatine Kinase 267 H 02/23/24 06:34: POC Glucose 82 02/23/24 07:45: PT 14.7, INR 1.2, Fibrinogen 522 H, D-Dimer Quant (PE/DVT) > 20.00 H*, Total Bilirubin 4.70 H, Direct Bilirubin 3.98 H, AST 131 H, ALT 397 H, Alkaline Phosphatase 316 H, Total Protein 4.2 L, Albumin 1.6 L, Globulin 2.6 Micro: Microbiology 02/22/24 01:16 Mucosa - Nasopharyngeal Coronavirus COVID-19 PCR - Final SARS-CoV-2 (COVID 19 PCR) 02/22/24 01:16 Mucosa - Nasopharyngeal Respiratory Panel (PCR) - Final 02/22/24 13:05 Mucosa - Nose Coronavirus COVID-19 PCR - Final 02/19/24 17:40 Urine Catheter - Doran Urine Culture - Final Culture exhibits no growth. 02/19/24 13:47 Blood Culture (Wb) - Anticubital Right Blood Culture - Preliminary No growth in 48 hours. 02/20/24 08:10 Nasal Secretion MRSA (PCR) - Final Radiography Diagnostic Testing: Radiology Impression Venous Doppler Study 02/22/24 02:30 Interpretation Summary Deep veins of the lower extremities are bilaterally patent and compressible segmentally. There is no evidence of deep vein thrombosis on either side. Valvular competence appears intact within the proximal deep venous systems bilaterally. The great saphenous veins appear bilaterally patent and compressible segmentally. Pulsatile flow is noted in the deep venous system bilaterally, which may be indicative of elevated central venous pressure (i.e. congestive heart failure, pulmonary hypertension, etc.). Clinical correlation is advised. Ordering Physician: Usha Dowd Referring Physician: Precious Aleman Performed By: Des Hernandez RVT Physical Exam Const Constitutional Narrative: Patient remains very weak and frail and lethargic. confused Orientation / Consciousness: disoriented and lethargic HEENT normocephalic and head/scalp atraumatic Eyes PERRL, EOMs intact bilaterally and conjunctivae normal Neck no lymphadenopathy, supple and no JVD Lymph Lymphatic: no lymphadenopathy noted Resp Resp Narrative: moderately diminished breath sounds bilaterally, mild wheezing with bilateral crackles. On 5L of oxygen by nasal canula Cardio regular rate, regular rhythm, S1 normal heart sound, S2 normal heart sound and no murmurs GI normal to inspection, nondistended, normoactive bowel sounds, soft to palpation, non-tender and non-distended Extremity normal to inspection, full ROM, normal capillary refill and no clubbing, cyanosis or edema Skin Skin Narrative: Patient looks very pale General Skin Exam: no breakdown and turgor normal Neuro Neuro Narrative: very weak, frail and lethargic. Moves all extremities spontaneously. Motor Exam: general weakness Psych Psych Narrative: flat affect, lethargic Assessment & Plan Assessment/Plan (1) Acute upper gastrointestinal bleeding: (2) Acute hypotension: (3) Acute kidney injury: (4) Acute hypernatremia: PLAN: Plan #Shock likely multifactorial * Was admitted with a complaint of hematemesis and worsening shock. She had emergent EGD which showed a Phyllis-Coy tear which was clipped and treated with heater probe. Hb today is 10.6. * she required 3 pressors, but is now off all pressors. * She is on IV vancomycin and Zosyn due to concerns about septic shock also. Blood and urine cultures are negative so far. * she is also on IV hydrocortisone for shock. * She had CT of the chest abdomen and pelvis which showed heterogeneous enlargement of the thyroid gland with right substernal extension, bilateral pleural effusions with bibasilar compressive atelectasis and/or infiltrate and moderate size hiatal hernia and findings suggestive of colitis in the left hemicolon with free fluid in the right hemipelvis. * off all vasopressors. * general surgery on board for possible ischemic bowel as CT scan showed possible left sided colitis. * #Possible ischemic colitis * CT findings as above. * general surgery on board and per their documentation, they are unsure of the etiology of the shock. To get an oral CT scan to evaluate the colon and or small bowel. Per general surgery, even if there are signs of ischemia, they are unsure if she would sruvive the surgery. General surgery recommends conservative management for now. * #Acute hypoxic respiratory failure * Due to COVID-19 infection as well as likely fluid overload. Patient required more oxygen overnight and is now 50% FiO2 via Venturi mask. * COVID test done overnight was positive. Repeat covid PCR was negative though. * had ultrafiltration yesterday. She had initially been commenced on CRRT but this malfunctioned. * To dialysis today. Now down to 5 L of oxygen. Titrate oxygen to maintain saturation above 90%. Breathing treatments bronchodilators. * On remdesivir and Decadron * Titrate oxygen to maintain saturation above 90%. ID consulted. Pulmonology already on board. * Patient's family requested for repeat COVID test because they do not believe she had COVID. * Will defer to ID about whether to take out of isolation or otherwise. * 2D echo from 02/20/2024 showed EF of 55% with no evidence of diastolic dysfunction. * #Acute blood loss anemia * Likely due to upper GI bleed. Hb has been stable. * Patient and family do not want transfusion. Her son was however willing to donate blood and patient states he is willing to take blood from a family member. * Of note they are not Jehovah's Witnesses but they have their own unique beliefs that preclude her from getting blood. * Hemoglobin today is 9.3 #Thrombocytopenia: * Platelets are down to 36. * Platelets were 179 on admission and up trended down slowly. There were 53 yesterday and now 36. * She has not received any blood thinners during this admission on account of the acute on chronic anemia due to upper GI bleed and hemorrhagic shock * Low platelets may be due to acute illness. If they trend any lower may need to involve hematology. * Transfuse if platelets are less than 10,000 * #Persistent Lactic acidosis: * Lactic acid was elevated but this is to be expected in light of the shock. * Urine cultures negative; blood cultures still pending. * Trend lactic acid. It still remains elevated. #DAGOBERTO with anion gap metabolic acidosis likely due to ischemic ATN * Creatinine is down to 2.83 from 3.73 yesterday. Potassium is 4.6. She was started on CRRT yesterday but there was some malfunction so CRRT was stopped. She is for hemodialysis today now that she is off vasopressors. * Bicarb is now 25. * Nephrology on board. * #Ischemic hepatitis * Total bilirubin is up to 4.7 today from 3.9 yesterday. AST and ALT however continue to trend downwards and ammonia is less than 10 today. * Patient was scheduled for liver biopsy today but this was canceled because of the low platelets. * Gastroenterology on board. * #Schizophrenia and bipolar disorder: Hold her current medications as she is NPO. DVT prophylaxis: SCDs. No anticoagulation due to GI bleed and thrombocytopenia CODE STATUS: Full code * P PRognosis: guarded. Charges/Coding Visit Charges Inpatient E&M: 24487 Subs Hosp L3
[2024-02-23] MEDS: CHLORHEXIDINE GLUC 2% CLOTH 1 EACH TOWELETTE TOPICAL (11:54)
--- NOTE | 2024-02-23 12:35 | PCM.PN.ID ---
Physical Exam Narrative Some abd pain, some dyspnea, feeling better. No fever. On HD today. Const alert General Appearance: cooperative Resp Auscultation: diminished lung sounds Cardio Rate: tachycardic GI soft to palpation, non-tender and non-distended Extremity General Extremity: edema Skin no rashes or lesions noted ID ID: Route of nutrition/ use of supplements: [] Nutritional Intake: [] IV Site: [] Doran Catheter: [] Assessment & Plan Assessment/Plan (1) Ischemic hepatitis: (2) Ischemic colitis: (3) Shock: PLAN: Shock with GI bleed, DAGOBERTO, hypoxic resp failure, covid, hepatitis, and suspected colitis seen on CT. On zosyn and iv steroid. Refused remdesivir. BP and O2 better today. Will follow, d/w nursing. (4) COVID: (5) Acute kidney injury: (6) Acute hypoxic respiratory failure:
[2024-02-23] MEDS: 0.9% Saline Lock 10 ML Syringe IV (13:22)
[2024-02-23] MEDS: Heparin 10,000 UNITS/10 ML Vial IV (13:22)
[2024-02-23] MEDS: TPN - Clinimix E 8%-14% Soln 2,000 ML with Multivitamins 10 ML, Trace Elements 1 ML, Fo... 42 ML IV (15:08)
[2024-02-23] MEDS: Fat Emulsions 20% 250 ML IV (15:39)
[2024-02-23 17:19] LABS: Bedside Glucose 110 mg/dL (74-106)
[2024-02-23] MEDS: 0.9% Normal Saline (250mL Bag) 250 ML 15 ML IV (18:08)
--- NOTE | 2024-02-23 20:06 | CPS ---
Patient refused PAP therapy for night time use. Bipap not in room at this time, for rescue only.
[2024-02-24] VITALS (35 sets, daily range): BP systolic 98–138; BP diastolic 46–73; PULSE 94–113; RESP 12–20; TEMP 36.3–37.2; O2SAT 94–98; BMI 33.1
[2024-02-24 00:21] LABS: Bedside Glucose 118 mg/dL (74-106)
[2024-02-24] MEDS: Pantoprazole Sodium 80 MG in 0.9% Normal Saline (100mL Bag) 80 ML 10 MG CONT INF ×3 (01:08→22:27)
[2024-02-24] MEDS: Piperacil/Tazobactam 3.375 GM in 0.9% Normal Saline (50mL MB+) 50 ML IV (06:29)
[2024-02-24 06:34] LABS: Hematocrit 27.1 % (37-47); Mean Corp Hgb Conc 33.2 g/dL (32-36); Mean Corpuscular Hgb 29.3 pg (27.0-32.0); Mean Corpuscular Volume 88.3 fL (81-99); Mean Platelet Vol. 11.6 fl (6.2-12.0); POSITIVE COUNT YES; POSITIVE MORPHOLOGY YES; RBC Distribution Width CV 15.8 % (11.6-14.6); RBC Distribution Width SD 51.2 fl (35.1-43.9); Red Blood Count 3.07 M/mm3 (4.2-5.4); White Blood Count 8.8 K/mm3 (4.4-11.0)
[2024-02-24 06:43] LABS: Bedside Glucose 122 mg/dL (74-106)
[2024-02-24 06:48] LABS: ALB/GLOB Ratio 0.5 RATIO (0.9-2.4); AST(SGOT) 68 U/L (15-37); Alanine Aminotransfer ALT/SGPT 267 U/L (13-56); Albumin, Serum 1.5 g/dL (3.2-5.0); Alkaline Phosphatase 385 U/L (45-117); Anion Gap 5 (5-15); BUN 58 mg/dL (7-18); BUN/Creat Ratio 14.8 RATIO (10-20); Calcium,Total 7.3 mg/dL (8.5-10.1); Chloride 108 mmol/L (98-107); Creatinine, Serum 3.93 mg/dL (0.55-1.02); Differential Indicated MANUAL DIFF; EST Glomerular Filtration Rate 12 mL/min (>60); Est Glom Filt Rate - Afr Amer 14 mL/min (>60); Estimated Creatinine Clearance 13.09 ml/min; Globulin 2.8 g/dL (2.2-4.2); Glucose 134 mg/dL (74-106); Platelet Count 29 K/mm3 (150-450); Potassium 4.3 mmol/L (3.5-5.1); Protein, Total 4.3 g/dL (6.4-8.2); Sodium Level 140 mmol/L (136-145); Triglycerides 113 mg/dL
[2024-02-24 07:50] LABS: Lymphocyte 16 % (19-41); Metamyelocyte 9 % (0-1); Monocyte 8 % (0-10); Myelocyte 1 % (0-0); Neutrophil-Segmented 66 % (47-70); Total Cells Counted 100 (MANUAL DIFF)
[2024-02-24 07:51] LABS: Absolute Neutrophil Count 5.8 X10^3/uL (2.0-7.7)
[2024-02-24 07:52] LABS: Absolute Lymphocyte Count 1.41 X10^3/uL (0.83-4.51); Dohle Bodies 1+
[2024-02-24 07:53] LABS: Anisocytosis 1+; Platelet Estimate MKD DEC (ADEQ)
[2024-02-24 07:54] LABS: Acanthocytes 1+; Crenated RBC 2+; Microcytosis 1+; Ovalocyte 1+; Schistocytes RARE
--- NOTE | 2024-02-24 08:28 | PN.SURG_ITS ---
Subjective Subjective The patient is much less tender this morning and she did not have any bloody bowel movements overnight Objective Data Objective Data Vital Signs: Vital Signs Temp Pulse Resp BP Pulse Ox O2 Del Method O2 Flow Rate 98.0 F 107 H 18 113/49 L 95 Nasal Cannula 3 02/24/24 06:00 02/24/24 07:00 02/24/24 07:00 02/24/24 07:00 02/24/24 08:18 02/24/24 08:18 02/24/24 08:18 FiO2 50 02/22/24 13:00 Oxygen Flow Rate (L/min) 3 Oxygen Delivery Method Nasal Cannula Weight: 194 lb 4.518 oz Body Mass Index (BMI) 33.1 Intake & Output: Intake and Output for Last 24 Hours 02/22/24 02/23/24 02/24/24 23:59 23:59 23:59 Intake Total 585.16 / 644.83 2326.5350 / 2326.5350 209.82 / 209.82 Output Total 2520 / 2535 4525 / 4540 Balance -1934.84 / -1890.17 -2198.4650 / -2213.4650 194.82 / 194.82 Lab / Micro Data 02/24/24 06:15 02/24/24 06:15 Labs: Laboratory Results - last 24 hr 02/23/24 07:45: Fibrinogen 522 H, D-Dimer Quant (PE/DVT) > 20.00 H* 02/23/24 17:00: POC Glucose 110 H 02/23/24 23:56: POC Glucose 118 H 02/24/24 06:15: WBC 8.8, RBC 3.07 L, Hgb 9.0 L, Hct 27.1 L, MCV 88.3, MCH 29.3, MCHC 33.2, RDW Std Deviation 51.2 H, RDW Coeff of Andrews 15.8 H, Plt Count 29 L*, MPV 11.6, Neut % (Auto) Not Reportable, Absolute Neuts (auto) 5.8, Absolute Lymphs (auto) 1.41, Total Counted 100, Neutrophils % (Manual) 66, Lymphocytes % (Manual) 16 L, Monocytes % (Manual) 8, Metamyelocytes % 9 H, Myelocytes % 1 H, Diff Path Review May foll, Dohle Bodies 1+, Platelet Estimate MKD DEC, Anisocytosis 1+, Microcytosis 1+, Ovalocytes 1+, Crenated Cell 2+, Acanthocytes (Spur) 1+, Schistocytes RARE, Sodium 140, Potassium 4.3, Chloride 108 H, Carbon Dioxide 27.0, Anion Gap 5, BUN 58 H, Creatinine 3.93 H, Estim Creat Clear Calc 13.09, Est GFR (MDRD) Af Amer 14 L, Est GFR (MDRD) Non-Af 12 L, BUN/Creatinine Ratio 14.8, Glucose 134 H, Calcium 7.3 L, Total Bilirubin 4.50 H, AST 68 H, ALT 267 H, Alkaline Phosphatase 385 H, Total Protein 4.3 L, Albumin 1.5 L, Globulin 2.8, Albumin/Globulin Ratio 0.5 L, Triglycerides 113 02/24/24 06:20: POC Glucose 122 H Micro: Microbiology 02/22/24 01:16 Mucosa - Nasopharyngeal Coronavirus COVID-19 PCR - Final SARS-CoV-2 (COVID 19 PCR) 02/22/24 01:16 Mucosa - Nasopharyngeal Respiratory Panel (PCR) - Final 02/22/24 13:05 Mucosa - Nose Coronavirus COVID-19 PCR - Final 02/19/24 17:40 Urine Catheter - Doran Urine Culture - Final Culture exhibits no growth. 02/19/24 13:47 Blood Culture (Wb) - Anticubital Right Blood Culture - Preliminary No growth in 48 hours. 02/20/24 08:10 Nasal Secretion MRSA (PCR) - Final Physical Exam Const no apparent distress Resp normal respiratory effort GI normal to inspection, nondistended, normoactive bowel sounds Assessment & Plan Assessment/Plan (1) Ischemic colitis: PLAN: Patient reports her pain is much improved. She was not very tender to palpation. She did not have any bloody bowel movements overnight. I will start her on a clear liquid diet to see how she tolerates this. Continue TPN for today. Deacon Peter MD Pager: [facility] [address] [place] [address], [address] [place] [address] Office:
--- NOTE | 2024-02-24 11:04 | PN_ITS ---
Subjective Subjective Patient seen and examined. She remains weak and lethargic. Unable to do review of systems due to lethargy. Platelets continue to drop and is down to 29. Objective Data Objective Data Vital Signs: Vital Signs Temp Pulse Resp BP Pulse Ox O2 Del Method O2 Flow Rate 99.0 F 104 H 17 107/54 L 96 Nasal Cannula 3 02/24/24 09:00 02/24/24 10:00 02/24/24 10:00 02/24/24 10:01 02/24/24 10:00 02/24/24 10:00 02/24/24 10:00 FiO2 50 02/22/24 13:00 Oxygen Flow Rate (L/min) 3 Oxygen Delivery Method Nasal Cannula Weight: 194 lb 4.518 oz Body Mass Index (BMI) 33.1 Intake & Output: Intake and Output for Last 24 Hours 02/22/24 02/23/24 02/24/24 23:59 23:59 23:59 Intake Total 585.16 / 644.83 2326.5350 / 2326.5350 1114.48 / 1114.48 Output Total 2520 / 2535 4525 / 4540 Balance -1934.84 / -1890.17 -2198.4650 / -2213.4650 1099.48 / 1099.48 Lab / Micro Data 02/24/24 06:15 02/24/24 06:15 Labs: Laboratory Results - last 24 hr 02/23/24 17:00: POC Glucose 110 H 02/23/24 23:56: POC Glucose 118 H 02/24/24 06:15: WBC 8.8, RBC 3.07 L, Hgb 9.0 L, Hct 27.1 L, MCV 88.3, MCH 29.3, MCHC 33.2, RDW Std Deviation 51.2 H, RDW Coeff of Andrews 15.8 H, Plt Count 29 L*, MPV 11.6, Neut % (Auto) Not Reportable, Absolute Neuts (auto) 5.8, Absolute Lymphs (auto) 1.41, Total Counted 100, Neutrophils % (Manual) 66, Lymphocytes % (Manual) 16 L, Monocytes % (Manual) 8, Metamyelocytes % 9 H, Myelocytes % 1 H, Diff Path Review May foll, Dohle Bodies 1+, Platelet Estimate MKD DEC, Anisocytosis 1+, Microcytosis 1+, Ovalocytes 1+, Crenated Cell 2+, Acanthocytes (Spur) 1+, Schistocytes RARE, Sodium 140, Potassium 4.3, Chloride 108 H, Carbon Dioxide 27.0, Anion Gap 5, BUN 58 H, Creatinine 3.93 H, Estim Creat Clear Calc 13.09, Est GFR (MDRD) Af Amer 14 L, Est GFR (MDRD) Non-Af 12 L, BUN/Creatinine Ratio 14.8, Glucose 134 H, Calcium 7.3 L, Total Bilirubin 4.50 H, AST 68 H, ALT 267 H, Alkaline Phosphatase 385 H, Total Protein 4.3 L, Albumin 1.5 L, Globulin 2.8, Albumin/Globulin Ratio 0.5 L, Triglycerides 113 02/24/24 06:20: POC Glucose 122 H Micro: Microbiology 02/22/24 01:16 Mucosa - Nasopharyngeal Coronavirus COVID-19 PCR - Final SARS-CoV-2 (COVID 19 PCR) 02/22/24 01:16 Mucosa - Nasopharyngeal Respiratory Panel (PCR) - Final 02/22/24 13:05 Mucosa - Nose Coronavirus COVID-19 PCR - Final 02/19/24 17:40 Urine Catheter - Doran Urine Culture - Final Culture exhibits no growth. 02/19/24 13:47 Blood Culture (Wb) - Anticubital Right Blood Culture - Preliminary No growth in 48 hours. 02/20/24 08:10 Nasal Secretion MRSA (PCR) - Final Physical Exam Const alert Constitutional Narrative: Patient remains very weak and frail and lethargic. confused General Appearance: cooperative Orientation / Consciousness: disoriented and lethargic HEENT normocephalic and head/scalp atraumatic Eyes PERRL, EOMs intact bilaterally and conjunctivae normal Neck no lymphadenopathy, supple and no JVD Lymph Lymphatic: no lymphadenopathy noted Resp normal respiratory effort Resp Narrative: moderately diminished breath sounds bilaterally, mild wheezing with bilateral crackles. On 3L of oxygen by nasal canula Cardio regular rate, regular rhythm, S1 normal heart sound, S2 normal heart sound and no murmurs GI normal to inspection, nondistended, normoactive bowel sounds, soft to palpation, non-tender and non-distended Extremity normal to inspection, full ROM, normal capillary refill and no clubbing, cyanosis or edema General Extremity: no tenderness to palpation of joints or extremities Skin Skin Narrative: Patient looks very pale General Skin Exam: no breakdown and turgor normal Neuro Neuro Narrative: very weak, frail and lethargic. Moves all extremities spontaneously. Motor Exam: general weakness Psych Psych Narrative: flat affect, lethargic Assessment & Plan Assessment/Plan (1) Acute upper gastrointestinal bleeding: (2) Acute hypotension: (3) Acute kidney injury: (4) Acute hypernatremia: PLAN: Plan #Shock likely multifactorial * resolved. Was initially thought to be hemorrhagic shock but subsequently thought to be multifactorial. * Was admitted with a complaint of hematemesis and worsening shock. She had emergent EGD which showed a Phyllis-Coy tear which was clipped and treated with heater probe. * she required 3 pressors, but is now off all pressors. * She is on IV vancomycin and Zosyn due to concerns about septic shock also. Blood and urine cultures are negative so far. * she is also on IV hydrocortisone for shock. * She had CT of the chest abdomen and pelvis which showed heterogeneous enlargement of the thyroid gland with right substernal extension, bilateral pleural effusions with bibasilar compressive atelectasis and/or infiltrate and moderate size hiatal hernia and findings suggestive of colitis in the left hemicolon with free fluid in the right hemipelvis. * general surgery on board for possible ischemic bowel as CT scan showed possible left sided colitis. * #Possible ischemic colitis * CT findings as above. * general surgery on board and per their documentation, they are unsure of the etiology of the shock. To get an oral CT scan to evaluate the colon and or small bowel. Per general surgery, even if there are signs of ischemia, they are unsure if she would sruvive the surgery. General surgery recommends conservative management for now. * General surgery just tried to start on clear liquids today. * #Acute hypoxic respiratory failure * Due to COVID-19 infection as well as likely fluid overload. Patient required more oxygen overnight and is now 50% FiO2 via Venturi mask. * COVID test done overnight was positive. Repeat covid PCR was negative though. * had ultrafiltration and subsequently dialysis. She had initially been commenced on CRRT but this malfunctioned. * Had dialysis yesterday. Now down to 3 L of oxygen. Titrate oxygen to maintain saturation above 90%. Breathing treatments bronchodilators. * remdesivir dc'd as patient refused.. * Titrate oxygen to maintain saturation above 90%. ID on board. Pulmonology already on board. * Patient's family requested for repeat COVID test because they do not believe she had COVID. * Will defer to ID about whether to take out of isolation or otherwise. * 2D echo from 02/20/2024 showed EF of 55% with no evidence of diastolic dysfunction. * #Acute blood loss anemia * Likely due to upper GI bleed. Hb has been stable. * Patient and family do not want transfusion. Her son was however willing to donate blood and patient states he is willing to take blood from a family member. * Of note they are not Jehovah's Witnesses but they have their own unique beliefs that preclude her from getting blood. * Hemoglobin today is 9 #Thrombocytopenia: * Platelets are down to 29 from 36 yesterday * Platelets were 179 on admission and up trended down slowly. * She has not received any blood thinners during this admission on account of the acute on chronic anemia due to upper GI bleed and hemorrhagic shock * Low platelets may be due to acute illness. If they continue to trend any lower may need to involve hematology. * Transfuse if platelets are less than 10,000 * Platelets will likely start trending upwards once patient's medical condition starts to improve * #Persistent Lactic acidosis: * Lactic acid was elevated but this is to be expected in light of the shock. * Urine cultures negative; blood cultures still pending. * Trend lactic acid. It still remains elevated. #DAGOBERTO with anion gap metabolic acidosis likely due to ischemic ATN * C is 3.93 today. Nephrology on board * had dialysis yesterday. * biarb is also now 27. * management as per nephrology. * #Ischemic hepatitis * Total bilirubin is slightly down to 4.5, from 4.7 yesterday. AST and ALT however continue to trend downwards. * Patient was scheduled for liver biopsy yesterday but this was canceled because of the low platelets. * Gastroenterology on board. * #Nutrition: on TPN. Has been NPO. General surgery to commence on clear diet today. To be advanced as per general surgery #Schizophrenia and bipolar disorder: Hold her current medications as she is NPO. DVT prophylaxis: SCDs. No anticoagulation due to GI bleed and thrombocytopenia CODE STATUS: Full code * P PRognosis: guarded. Charges/Coding Visit Charges Inpatient E&M: 91268 Subs Hosp L3
[2024-02-24] MEDS: Hydrocortisone Sod Succinate 100 MG/2 ML Vial 50 MG IV ×2 (11:34→22:28)
[2024-02-24] MEDS: CHLORHEXIDINE GLUC 2% CLOTH 1 EACH TOWELETTE TOPICAL (11:34)
--- NOTE | 2024-02-24 12:48 | PCM.PN.TICU ---
Objective Data Objective Data Vital Signs: Vital Signs Last response Temperature 37.2 C 02/24/24 12:00 Temperature Source Temporal 02/24/24 12:00 Pulse Rate 104 H 02/24/24 12:00 Pulse Strength Normal (2+) 02/24/24 10:00 Respiratory Rate 17 02/24/24 12:00 Respiratory Effort Normal, Non-Labored 02/24/24 12:10 Respiratory Depth Normal 02/24/24 09:00 Respiratory Pattern Normal 02/24/24 09:00 Blood Pressure 111/52 L 02/24/24 12:00 Blood Pressure Mean 71 02/24/24 12:00 Blood Pressure Source Arterial Line 02/24/24 11:00 Blood Pressure Position Semi-Fowlers 02/24/24 10:01 Blood Pressure Location Left Arm 02/24/24 10:01 Baseline BP 66/47 02/19/24 13:11 Pulse Ox 97 02/24/24 12:00 Oxygen Delivery Method Nasal Cannula 02/24/24 12:10 Oxygen Flow Rate (L/min) 3 02/24/24 12:10 Fraction of Inspired Oxygen (FIO2) 50 02/22/24 13:00 EtCo2 (Normal 35-45 , high quality CPR 10-20 & ROSC>/=40mmHg 30 02/23/24 08:17 CLA-BSI maintained Yes 02/20/24 07:08 I&O: I&O Last 24 Hours 02/23/24 02/24/24 02/24/24 23:59 11:59 23:59 Intake Total 723.3925 / 2326.5350 1219.32 / 1219.32 Output Total 4510 / 4540 Balance -3786.6075 / -2213.4650 1204.32 / 1204.32 I&O: Total Stay 02/19/24 09:30 thru 02/24/24 11:09 Intake Total 71678.5950 Output Total 7415 Balance 27730.5950 Current Meds Ordered / Administered: Current meds ordered / Administered Generic Name Dose Route Start Last Admin Trade Name Freq PRN Reason Stop Dose Admin CRRT Dialysis Solution 9 bag 02/21/24 16:09 02/21/24 16:31 Pureflow B Solution 4k 5,000 Ml Bag PF 5 bag UD PRN Administration CRRT Protocol Chlorhexidine Gluconate 1 each 02/20/24 10:00 02/24/24 11:34 Chlorhexidine Gluc 2% Cloth 1 Each Towelette TOPICAL 1 each DAILY SAIRA Administration Clozapine 100 mg 02/21/24 10:00 02/24/24 11:05 Clozapine 100 Mg Tablet PO Not Given DAILY SAIRA Protocol Flumazenil 0.2 mg 02/23/24 08:00 Flumazenil 0.5 Mg/5 Ml Vial IV Q1M PRN Respirations <10 per minute Glucagon 1 mg 02/19/24 20:00 Glucagon 1 Mg/Ml Syringe IM X1 PRN Hypoglycemia Protocol Heparin Sodium (Porcine) 0 units 02/21/24 08:56 Heparin 10,000 Units/10 Ml Vial IV X1 PRN Emergency Dialysis Catheter DC Hydrocortisone Sodium Succinate 50 mg 02/23/24 22:00 02/24/24 11:34 Hydrocortisone Sod Succinate 100 Mg/2 Ml Vial IV 50 mg Q12 SAIRA Administration Sodium Chloride 250 mls @ 15 mls/hr 02/19/24 14:47 02/24/24 09:12 IV Infused .[id number] PRN Infusion Saline Flush Dextrose 250 mls @ 0 mls/hr 02/19/24 20:00 02/23/24 01:36 Dextrose 10%-Water IV Infused .Q0M PRN Infusion HYPOGLYCEMIA Protocol As Directed Pantoprazole Sodium 80 mg/ 100 mls @ 10 mls/hr 02/19/24 20:15 02/24/24 12:04 Sodium Chloride CONT INF 10 mls/hr Q10H SAIRA Administration Magnesium Sulfate 4 gm in 100 mls @ 25 mls/hr 02/21/24 08:56 IV X1 PRN Magnesium level < 1.6mg/dl Sodium Phosphate 30 mmol/ 260 mls @ 62.5 mls/hr 02/21/24 08:56 Sodium Chloride IV X1 PRN Phosphorus Level <2.5 Potassium Chloride 40 meq/ 270 mls @ 135 mls/hr 02/21/24 08:56 Sodium Chloride IV X1 PRN K+ <3.5 mEq/L Piperacillin Sod/Tazobactam 50 mls @ 12.5 mls/hr 02/22/24 18:00 02/24/24 11:05 Sod 3.375 gm/ Sodium Chloride IV Infused Q12H SAIRA Infusion Multivitamins 10 ml/ Zinc/ 2,011.2 mls @ 42 mls/hr 02/23/24 16:00 02/24/24 11:05 Copper/Manganese/Selenium 1 ml IV 02/24/24 15:47 Infused / Folic Acid 1 mg/ Total .Q24H [facility] Infusion Parenteral Nutrition Multivitamins 10 ml/ Zinc/ 2,011.2 mls @ 42 mls/hr 02/24/24 16:00 Copper/Manganese/Selenium 1 ml IV 02/25/24 15:47 / Folic Acid 1 mg/ Total .Q24H SAIRA Parenteral Nutrition Nitroglycerin 0.4 mg 02/19/24 14:55 Nitroglycerin (Inpatient Use) 0.4 Mg Tab.Subl SL Q5M PRN CARDIAC/CHEST PAIN Ondansetron HCl 4 mg 02/19/24 14:55 02/20/24 12:20 Ondansetron 4 Mg/2 Ml Vial IV 4 mg Q8H PRN PRN Administration NAUSEA/VOMITING Sodium Chloride 10 - 40 ml 02/19/24 14:47 02/23/24 13:22 0.9% Saline Lock 10 Ml Syringe IV 40 ml UD PRN Administration SALINE FLUSH Sodium Chloride 20 ml 02/21/24 08:56 0.9% Saline Lock 10 Ml Syringe IV UD PRN Emergency Dialysis Catheter DC Sodium Chloride 50 - 100 ml 02/21/24 08:56 0.9% Normal Saline 1,000 Ml Iv.Soln. IV UD PRN CRRT System Flush Lab / Micro Data 02/24/24 14:20 02/24/24 06:15 Labs: Laboratory Results - last 24 hr 02/23/24 17:00: POC Glucose 110 H 02/23/24 23:56: POC Glucose 118 H 02/24/24 06:15: WBC 8.8, RBC 3.07 L, Hgb 9.0 L, Hct 27.1 L, MCV 88.3, MCH 29.3, MCHC 33.2, RDW Std Deviation 51.2 H, RDW Coeff of Andrews 15.8 H, Plt Count 29 L*, MPV 11.6, Neut % (Auto) Not Reportable, Absolute Neuts (auto) 5.8, Absolute Lymphs (auto) 1.41, Total Counted 100, Neutrophils % (Manual) 66, Lymphocytes % (Manual) 16 L, Monocytes % (Manual) 8, Metamyelocytes % 9 H, Myelocytes % 1 H, Diff Path Review May foll, Dohle Bodies 1+, Platelet Estimate MKD DEC, Anisocytosis 1+, Microcytosis 1+, Ovalocytes 1+, Crenated Cell 2+, Acanthocytes (Spur) 1+, Schistocytes RARE, Sodium 140, Potassium 4.3, Chloride 108 H, Carbon Dioxide 27.0, Anion Gap 5, BUN 58 H, Creatinine 3.93 H, Estim Creat Clear Calc 13.09, Est GFR (MDRD) Af Amer 14 L, Est GFR (MDRD) Non-Af 12 L, BUN/Creatinine Ratio 14.8, Glucose 134 H, Calcium 7.3 L, Total Bilirubin 4.50 H, AST 68 H, ALT 267 H, Alkaline Phosphatase 385 H, Total Protein 4.3 L, Albumin 1.5 L, Globulin 2.8, Albumin/Globulin Ratio 0.5 L, Triglycerides 113 02/24/24 06:20: POC Glucose 122 H Assessment and Plan . Assessment and plan: Patient seen and examined Chart and data reviewed [place] woman admitted w/ MOF in the setting of Co-V infection UGI bleeding d/t M-W tear on presentation - subsequent shock and DAGOBERTO She has required [employer]ER - HD w/ UF yesterday Breathing 3 LPM O2 comfortably at rest Ongoing hypoactive delirium She has had significant hematochezia - GI and surgery opinions noted EXAM: GEN NAD, hypoactive, appears ill VS as above HEENT O2 N/C NECK supple COR tachy, reg CHEST coarse ABD soft, quiet EXT pitting edema SKIN w/d TONIA grossly NF, globally weak ASSESSMENT: 1. Hypotension / shock 2. GI bleeding - M-W tear + colitis 3. 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 Delirium / encephalopathy 5. Co-V infection 6. Anemia / thrombocytopenia 7. 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
[2024-02-24 13:51] LABS: Bedside Glucose 125 mg/dL (74-106)
[2024-02-24 14:42] LABS: Hemoglobin 9.1 g/dL (12.0-15.0); Mean Corp Hgb Conc 33.7 g/dL (32-36); Mean Corpuscular Hgb 29.6 pg (27.0-32.0); Mean Corpuscular Volume 87.9 fL (81-99); Mean Platelet Vol. 12.1 fl (6.2-12.0); POSITIVE COUNT YES; POSITIVE DIFFERENTIAL YES; POSITIVE MORPHOLOGY YES; RBC Distribution Width CV 15.8 % (11.6-14.6); Red Blood Count 3.07 M/mm3 (4.2-5.4); White Blood Count 10.1 K/mm3 (4.4-11.0)
[2024-02-24 15:00] LABS: Differential Indicated MANUAL DIFF; Platelet Count 31 K/mm3 (150-450)
--- NOTE | 2024-02-24 15:17 | PN.RENAL_ITS ---
Subjective Subjective Follow-up on acute kidney injury. She was supposed to have dialysis today, but had massive GI bleed in the setting of ongoing thrombocytopenia. Dialysis has been placed on hold. She is currently on nasal cannula oxygen, saturation 94%. She is hemodynamically stable, blood pressure is soft but stable. She is not on any pressors. Has Doran catheter in, urine output is minimal Objective Data Objective Data Vital Signs: Vital Signs Temp Pulse Resp BP Pulse Ox O2 Del Method O2 Flow Rate 99 F 103 H 14 127/56 H 97 Nasal Cannula 3 02/24/24 12:00 02/24/24 14:00 02/24/24 14:00 02/24/24 14:00 02/24/24 14:00 02/24/24 14:00 02/24/24 14:00 FiO2 50 02/22/24 13:00 Oxygen Flow Rate (L/min) 3 Oxygen Delivery Method Nasal Cannula Weight: 88.125 kg Body Mass Index (BMI) 33.1 Intake & Output: Intake and Output for Last 24 Hours 02/22/24 02/23/24 02/24/24 23:59 23:59 23:59 Intake Total 585.16 / 644.83 2326.5350 / 2326.5350 1219.32 / 1219.32 Output Total 2520 / 2535 4525 / 4540 15 Balance -1934.84 / -1890.17 -2198.4650 / -2213.4650 1204.32 / 1204.32 Lab / Micro Data Attestation: I reviewed the patient's lab results. 02/24/24 14:20 02/24/24 06:15 Labs: Laboratory Results - last 24 hr 02/23/24 17:00: POC Glucose 110 H 02/23/24 23:56: POC Glucose 118 H 02/24/24 06:15: WBC 8.8, RBC 3.07 L, Hgb 9.0 L, Hct 27.1 L, MCV 88.3, MCH 29.3, MCHC 33.2, RDW Std Deviation 51.2 H, RDW Coeff of Andrews 15.8 H, Plt Count 29 L*, MPV 11.6, Neut % (Auto) Not Reportable, Absolute Neuts (auto) 5.8, Absolute Lymphs (auto) 1.41, Total Counted 100, Neutrophils % (Manual) 66, Lymphocytes % (Manual) 16 L, Monocytes % (Manual) 8, Metamyelocytes % 9 H, Myelocytes % 1 H, Diff Path Review May foll, Dohle Bodies 1+, Platelet Estimate MKD DEC, Anisocytosis 1+, Microcytosis 1+, Ovalocytes 1+, Crenated Cell 2+, Acanthocytes (Spur) 1+, Schistocytes RARE, Sodium 140, Potassium 4.3, Chloride 108 H, Carbon Dioxide 27.0, Anion Gap 5, BUN 58 H, Creatinine 3.93 H, Estim Creat Clear Calc 13.09, Est GFR (MDRD) Af Amer 14 L, Est GFR (MDRD) Non-Af 12 L, BUN/Creatinine Ratio 14.8, Glucose 134 H, Calcium 7.3 L, Total Bilirubin 4.50 H, AST 68 H, ALT 267 H, Alkaline Phosphatase 385 H, Total Protein 4.3 L, Albumin 1.5 L, Globulin 2.8, Albumin/Globulin Ratio 0.5 L, Triglycerides 113 02/24/24 06:20: POC Glucose 122 H 02/24/24 11:42: POC Glucose 125 H 02/24/24 14:20: WBC 10.1, RBC 3.07 L, Hgb 9.1 L, Hct 27.0 L, MCV 87.9, MCH 29.6, MCHC 33.7, RDW Std Deviation 51.0 H, RDW Coeff of Andrews 15.8 H, Plt Count 31 L*, M PV 12.1 H, Neut % (Auto) Not Reportable Micro: Microbiology 02/19/24 13:47 Blood Culture (Wb) - Anticubital Right Blood Culture - Final No growth in 5 days. 02/22/24 01:16 Mucosa - Nasopharyngeal Coronavirus COVID-19 PCR - Final SARS-CoV-2 (COVID 19 PCR) 02/22/24 01:16 Mucosa - Nasopharyngeal Respiratory Panel (PCR) - Final 02/22/24 13:05 Mucosa - Nose Coronavirus COVID-19 PCR - Final 02/19/24 17:40 Urine Catheter - Doran Urine Culture - Final Culture exhibits no growth. 02/20/24 08:10 Nasal Secretion MRSA (PCR) - Final Physical Exam Const no apparent distress Orientation / Consciousness: lethargic HEENT normocephalic Head and Scalp: atraumatic Neck no lymphadenopathy Resp Resp Narrative: Lungs are relatively clear Cardio Cardio Narrative: Heart is irregular GI non-tender and non-distended Auscultation: normoactive bowel sounds Skin no rashes or lesions noted Psych Memory / Cognition: cognition impaired Assessment & Plan Assessment/Plan (1) Acute kidney injury: PLAN: Patient has been scheduled to have dialysis today, he she did have 1 session yesterday. She is definitely fluid overloaded, but not acidotic and electrolytes are fine. I think it is okay to hold dialysis while dealing with ongoing profound GI bleed.
[2024-02-24 15:34] LABS: International Normalized Ratio 1.2; Prothrombin Time (Protime)PT. 14.8 SECONDS (11.7-14.9)
[2024-02-24 15:35] LABS: Partial Thromboplast Time 28.8 Seconds (24.1-36.2)
[2024-02-24 16:33] LABS: Lymphocyte 14 % (19-41); Metamyelocyte 4 % (0-1); Monocyte 4 % (0-10); Myelocyte 1 % (0-0); Neutrophil-Band 2 % (0-5); Neutrophil-Segmented 75 % (47-70); Total Cells Counted 100 (MANUAL DIFF)
[2024-02-24 17:03] LABS: Absolute Lymphocyte Count 1.41 X10^3/uL (0.83-4.51); Absolute Neutrophil Count 7.8 X10^3/uL (2.0-7.7)
[2024-02-24 17:04] LABS: Platelet Estimate MKD DEC (ADEQ); Red Cell Morphology NORM C+C NORMAL (NORM C&C)
[2024-02-24] MEDS: TPN - Clinimix E 8%-14% Soln 2,000 ML with Multivitamins 10 ML, Trace Elements 1 ML, Fo... 42 ML IV (17:04)
[2024-02-24 18:24] LABS: Bedside Glucose 110 mg/dL (74-106)
[2024-02-24] MEDS: 0.9% Saline Lock 10 ML Syringe IV (22:31)
[2024-02-25] VITALS (11 sets, daily range): BP systolic 97–126; BP diastolic 53–99; PULSE 85–104; RESP 10–22; TEMP 36.3–36.7; O2SAT 95–98; BMI 32.7
[2024-02-25 00:54] LABS: Bedside Glucose 132 mg/dL (74-106)
[2024-02-25 05:19] LABS: Hematocrit 26.2 % (37-47); Hemoglobin 8.5 g/dL (12.0-15.0); Mean Corp Hgb Conc 32.4 g/dL (32-36); Mean Corpuscular Hgb 28.9 pg (27.0-32.0); Mean Corpuscular Volume 89.1 fL (81-99); Mean Platelet Vol. 11.6 fl (6.2-12.0); POSITIVE COUNT YES; POSITIVE MORPHOLOGY YES; Platelet Count 66 K/mm3 (150-450); RBC Distribution Width CV 16.1 % (11.6-14.6); RBC Distribution Width SD 52.8 fl (35.1-43.9); Red Blood Count 2.94 M/mm3 (4.2-5.4)
[2024-02-25 05:34] LABS: Differential Indicated MANUAL DIFF
[2024-02-25 05:42] LABS: ALB/GLOB Ratio 0.5 RATIO (0.9-2.4); AST(SGOT) 53 U/L (15-37); Alanine Aminotransfer ALT/SGPT 185 U/L (13-56); Albumin, Serum 1.5 g/dL (3.2-5.0); Alkaline Phosphatase 482 U/L (45-117); Anion Gap 9 (5-15); BUN 91 mg/dL (7-18); BUN/Creat Ratio 17.9 RATIO (10-20); Calcium,Total 7.6 mg/dL (8.5-10.1); Chloride 107 mmol/L (98-107); Creatinine, Serum 5.09 mg/dL (0.55-1.02); EST Glomerular Filtration Rate 9 mL/min (>60); Est Glom Filt Rate - Afr Amer 11 mL/min (>60); Globulin 2.8 g/dL (2.2-4.2); Glucose 146 mg/dL (74-106); Potassium 4.8 mmol/L (3.5-5.1); Protein, Total 4.3 g/dL (6.4-8.2); Sodium Level 138 mmol/L (136-145)
[2024-02-25 06:09] LABS: Lymphocyte 11 % (19-41); Metamyelocyte 6 % (0-1); Monocyte 3 % (0-10); Myelocyte 4 % (0-0); Neutrophil-Band 3 % (0-5); Neutrophil-Segmented 70 % (47-70); Other WBC Type 3 %; Total Cells Counted 100 (MANUAL DIFF)
[2024-02-25 06:14] LABS: Anisocytosis 1+; Ovalocyte 1+; Platelet Estimate MKD DEC (ADEQ); Polychromasia 1+; Schistocytes RARE
[2024-02-25 06:16] LABS: Absolute Lymphocyte Count 1.32 X10^3/uL (0.83-4.51); Absolute Neutrophil Count 8.8 X10^3/uL (2.0-7.7)
--- NOTE | 2024-02-25 06:52 | PN.SURG_ITS ---
Subjective Subjective Overnight nurse reports that the stools are brighter red but more formed. Objective Data Objective Data Vital Signs: Vital Signs Temp Pulse Resp BP Pulse Ox O2 Del Method O2 Flow Rate 97.6 F L 99 14 109/71 97 Mechanical Ventilator 3 02/25/24 06:00 02/25/24 06:00 02/25/24 06:00 02/25/24 06:00 02/25/24 06:00 02/25/24 06:00 02/25/24 06:00 FiO2 50 02/22/24 13:00 Oxygen Flow Rate (L/min) 3 Oxygen Delivery Method Mechanical Ventilator Weight: 191 lb 9.6 oz Body Mass Index (BMI) 32.7 Intake & Output: Intake and Output for Last 24 Hours 02/23/24 02/24/24 02/25/24 23:59 23:59 23:59 Intake Total 2326.5350 / 2326.5350 / Output Total 4525 / 4540 Balance -2198.4650 / -2213.4650 -10 Lab / Micro Data 02/25/24 05:00 02/25/24 04:20 Labs: Laboratory Results - last 24 hr 02/24/24 06:15: Absolute Neuts (auto) 5.8, Absolute Lymphs (auto) 1.41, Total Counted 100, Neutrophils % (Manual) 66, Lymphocytes % (Manual) 16 L, Monocytes % (Manual) 8, Metamyelocytes % 9 H, Myelocytes % 1 H, Diff Path Review May foll, Dohle Bodies 1+, Platelet Estimate MKD DEC, Anisocytosis 1+, Microcytosis 1+, Ovalocytes 1+, Crenated Cell 2+, Acanthocytes (Spur) 1+, Schistocytes RARE 02/24/24 11:42: POC Glucose 125 H 02/24/24 14:20: WBC 10.1, RBC 3.07 L, Hgb 9.1 L, Hct 27.0 L, MCV 87.9, MCH 29.6, MCHC 33.7, RDW Std Deviation 51.0 H, RDW Coeff of Andrews 15.8 H, Plt Count 31 L*, M PV 12.1 H, Neut % (Auto) Not Reportable, Absolute Neuts (auto) 7.8 H, Absolute Lymphs (auto) 1.41, Total Counted 100, Neutrophils % (Manual) 75 H, Band Neutrophils % 2, Lymphocytes % (Manual) 14 L, Monocytes % (Manual) 4, M etamyelocytes % 4 H, Myelocytes % 1 H, Differential Comment SEE COMMENT, Diff Path Review May foll, Platelet Estimate MKD DEC, RBC Morphology NORM C+C, PT 14.8, INR 1.2, APTT 28.8, Blood Type B POSITIVE, Antibody Screen NEGATIVE 02/24/24 18:04: POC Glucose 110 H 02/25/24 00:24: POC Glucose 132 H 02/25/24 04:20: WBC Cancelled, Corrected WBC Cancelled, RBC Cancelled, Hgb Cancelled, Hct Cancelled, MCV Cancelled, MCH Cancelled, MCHC Cancelled, RDW Std Deviation Cancelled, RDW Coeff of Andrews Cancelled, Plt Count Cancelled, MPV Cancelled, Immature Gran % (Auto) Cancelled, Neut % (Auto) Cancelled, Lymph % (Auto) Cancelled, Branch % (Auto) Cancelled, Eos % (Auto) Cancelled, Baso % (Auto) Cancelled, Absolute Neuts (auto) Cancelled, Absolute Lymphs (auto) Cancelled, Total Counted Cancelled, Neutrophils % (Manual) Cancelled, Band Neutrophils % Cancelled, Lymphocytes % (Manual) Cancelled, Monocytes % (Manual) Cancelled, Eosinophils % (Manual) Cancelled, Basophils % (Manual) Cancelled, Metamyelocytes % Cancelled, Myelocytes % Cancelled, Promyelocytes % Cancelled, Blast Cells % Cancelled, Plasma Cell % (Manual) Cancelled, Other Cells % Cancelled, Nucleated RBC % Cancelled, Nucleated RBCs/100 WBC Cancelled, Differential Comment Cancelled, Diff Path Review Cancelled, Hypersegmented Neuts Cancelled, Atypical Lymphocytes Cancelled, Reactive Lymphocytes Cancelled, Smudge Cells Cancelled, Toxic Granulation Cancelled, Toxic Vacuolation Cancelled, Dohle Bodies Cancelled, Paula Rods Cancelled, Platelet Estimate Cancelled, Plt Morphology Comment Cancelled, RBC Morphology Cancelled 02/25/24 04:20: RBC Morphology Cancelled, Polychromasia Cancelled, Hypochromasia Cancelled, Basophilic Stippling Cancelled, Anisocytosis Cancelled, Microcytosis Cancelled, Macrocytosis Cancelled, Spherocytes Cancelled, Sickle Cells Cancelled, Target Cells Cancelled, Tear Drop Cells Cancelled, Ovalocytes Cancelled, Stomatocytes Cancelled, Novak-Naschitti Bodies Cancelled, Raf Cells Cancelled, Bite Cells Cancelled, Crenated Cell Cancelled, Acanthocytes (Spur) Cancelled, Rouleaux Cancelled, Schistocytes Cancelled, Sodium 138, Potassium 4.8, Chloride 107, Carbon Dioxide 23.0, Anion Gap 9, BUN 91 H, Creatinine 5.09 H , Estim Creat Clear Calc 10.10, Est GFR (MDRD) Af Amer 11 L, Est GFR (MDRD) Non- Af 9 L, BUN/Creatinine Ratio 17.9, Glucose 146 H, Calcium 7.6 L, Total Bilirubin 5.00 H, AST 53 H, ALT 185 H, Alkaline Phosphatase 482 H, Total Protein 4.3 L, A lbumin 1.5 L, Globulin 2.8, Albumin/Globulin Ratio 0.5 L 02/25/24 05:00: WBC 12.0 H, RBC 2.94 L, Hgb 8.5 L, Hct 26.2 L, MCV 89.1, MCH 28.9, MCHC 32.4, RDW Std Deviation 52.8 H, RDW Coeff of Andrews 16.1 H, Plt Count 66 L, MPV 11.6, Neut % (Auto) Not Reportable, Absolute Neuts (auto) 8.8 H, Absolute Lymphs (auto) 1.32, Total Counted 100, Neutrophils % (Manual) 70, Band Neutrophils % 3, Lymphocytes % (Manual) 11 L, Monocytes % (Manual) 3, M etamyelocytes % 6 H, Myelocytes % 4 H, Other Cells % 3, Diff Path Review May foll, Platelet Estimate MKD DEC, Polychromasia 1+, Anisocytosis 1+, Ovalocytes 1+, Schistocytes RARE Micro: Microbiology 02/19/24 13:47 Blood Culture (Wb) - Anticubital Right Blood Culture - Final No growth in 5 days. 02/22/24 01:16 Mucosa - Nasopharyngeal Coronavirus COVID-19 PCR - Final SARS-CoV-2 (COVID 19 PCR) 02/22/24 01:16 Mucosa - Nasopharyngeal Respiratory Panel (PCR) - Final 02/22/24 13:05 Mucosa - Nose Coronavirus COVID-19 PCR - Final 02/19/24 17:40 Urine Catheter - Doran Urine Culture - Final Culture exhibits no growth. 02/20/24 08:10 Nasal Secretion MRSA (PCR) - Final Physical Exam Const General Appearance: ill appearing Resp normal respiratory effort GI soft to palpation Assessment & Plan Assessment/Plan (1) Ischemic colitis: PLAN: The patient received platelets overnight. Platelet count is up but hemoglobin has decreased. The patient is still having ongoing bleeding but the patient's family refuses blood transfusions. When I went into see her she was very tired appearing and not oriented. I palpated deeply in her abdomen and there is no guarding or rebound and she does not complain of pain when I push very hard on her abdomen. I believe the GI bleeding is still a sloughing of the mucosa from the ischemic colitis but I do not believe she has bowel. Continue supportive care. Possible colonoscopy to evaluate the mucosa. Deacon Peter MD Pager: [facility] [address] [place] [address], [address] [place] [address] Office:
[2024-02-25] MEDS: Pantoprazole Sodium 80 MG in 0.9% Normal Saline (100mL Bag) 80 ML 10 MG CONT INF (08:30)
[2024-02-25 10:03] LABS: Bedside Glucose 140 mg/dL (74-106)
--- NOTE | 2024-02-25 13:02 | PN_ITS ---
Subjective Subjective Patient seen and examined. She remains very frail and lethargic. Unable to do review of systems. Her was by her bedside. She is down to 3L of oxygen. Hemoglobin today is 8.5. She did have several more episodes of bloody bowel movements overnight. Hemoglobin has continued to trend downwards. She did receive 2 units of platelets yesterday platelets at 66. is by her bedside and I spoke to him extensively about the fact that she may need to have a scope again. Has been pulled down and said he did not want to see her suffer anymore. He asked to stop all aggressive treatments. I had an extensive discussion about CODE STATUS with the . He requested that patient should be DNR. I clarified with him the difference between DNR CCA and DNR CCA. This was in the presence of the patient's nurse Madonna. Has not expressed understanding and requested that patient be switched to DNR CC. He did not wanted to have any EGD or colonoscopy, any more dialysis or any more antibiotics and just wanted her to be kept comfortable. CODE STATUS therefore to be switched to DNR CC. Objective Data Objective Data Vital Signs: Vital Signs Temp Pulse Resp BP Pulse Ox O2 Del Method O2 Flow Rate 97.6 F L 91 10 L 97/54 L 98 Nasal Cannula 3 02/25/24 06:00 02/25/24 08:00 02/25/24 08:00 02/25/24 08:00 02/25/24 08:15 02/25/24 08:30 02/25/24 08:30 FiO2 50 02/22/24 13:00 Oxygen Flow Rate (L/min) 3 Oxygen Delivery Method Nasal Cannula Weight: 191 lb 9.6 oz Body Mass Index (BMI) 32.7 Intake & Output: Intake and Output for Last 24 Hours 02/23/24 02/24/24 02/25/24 23:59 23:59 23:59 Intake Total 2326.5350 / 2326.5350 Output Total 4525 / 4540 Balance -2198.4650 / -2213.4650 32 -10 -10 Lab / Micro Data 02/25/24 05:00 02/25/24 04:20 Labs: Laboratory Results - last 24 hr 02/24/24 11:42: POC Glucose 125 H 02/24/24 14:20: WBC 10.1, RBC 3.07 L, Hgb 9.1 L, Hct 27.0 L, MCV 87.9, MCH 29.6, MCHC 33.7, RDW Std Deviation 51.0 H, RDW Coeff of Andrews 15.8 H, Plt Count 31 L*, M PV 12.1 H, Neut % (Auto) Not Reportable, Absolute Neuts (auto) 7.8 H, Absolute Lymphs (auto) 1.41, Total Counted 100, Neutrophils % (Manual) 75 H, Band Neutrophils % 2, Lymphocytes % (Manual) 14 L, Monocytes % (Manual) 4, M etamyelocytes % 4 H, Myelocytes % 1 H, Differential Comment SEE COMMENT, Diff Path Review September sarwat, Platelet Estimate MKD DEC, RBC Morphology NORM C+C, PT 14.8, INR 1.2, APTT 28.8, Blood Type B POSITIVE, Antibody Screen NEGATIVE 02/24/24 18:04: POC Glucose 110 H 02/25/24 00:24: POC Glucose 132 H 02/25/24 04:20: WBC Cancelled, Corrected WBC Cancelled, RBC Cancelled, Hgb Cancelled, Hct Cancelled, MCV Cancelled, MCH Cancelled, MCHC Cancelled, RDW Std Deviation Cancelled, RDW Coeff of Andrews Cancelled, Plt Count Cancelled, MPV Cancelled, Immature Gran % (Auto) Cancelled, Neut % (Auto) Cancelled, Lymph % (Auto) Cancelled, [place] % (Auto) Cancelled, Eos % (Auto) Cancelled, Baso % (Auto) Cancelled, Absolute Neuts (auto) Cancelled, Absolute Lymphs (auto) Cancelled, Total Counted Cancelled, Neutrophils % (Manual) Cancelled, Band Neutrophils % Cancelled, Lymphocytes % (Manual) Cancelled, Monocytes % (Manual) Cancelled, Eosinophils % (Manual) Cancelled, Basophils % (Manual) Cancelled, Metamyelocytes % Cancelled, Myelocytes % Cancelled, Promyelocytes % Cancelled, Blast Cells % Cancelled, Plasma Cell % (Manual) Cancelled, Other Cells % Cancelled, Nucleated RBC % Cancelled, Nucleated RBCs/100 WBC Cancelled, Differential Comment Cancelled, Diff Path Review Cancelled, Hypersegmented Neuts Cancelled, Atypical Lymphocytes Cancelled, Reactive Lymphocytes Cancelled, Smudge Cells Cancelled, Toxic Granulation Cancelled, Toxic Vacuolation Cancelled, Dohle Bodies Cancelled, Paula Rods Cancelled, Platelet Estimate Cancelled, Plt Morphology Comment Cancelled, RBC Morphology Cancelled 02/25/24 04:20: RBC Morphology Cancelled, Polychromasia Cancelled, Hypochromasia Cancelled, Basophilic Stippling Cancelled, Anisocytosis Cancelled, Microcytosis Cancelled, Macrocytosis Cancelled, Spherocytes Cancelled, Sickle Cells Cancelled, Target Cells Cancelled, Tear Drop Cells Cancelled, Ovalocytes Cancelled, Stomatocytes Cancelled, [place] Bodies Cancelled, [place] Cells Cancelled, Bite Cells Cancelled, Crenated Cell Cancelled, Acanthocytes (Spur) Cancelled, Rouleaux Cancelled, Schistocytes Cancelled, Sodium 138, Potassium 4.8, Chloride 107, Carbon Dioxide 23.0, Anion Gap 9, BUN 91 H, Creatinine 5.09 H , Estim Creat Clear Calc 10.10, Est GFR (MDRD) Af Amer 11 L, Est GFR (MDRD) Non- Af 9 L, BUN/Creatinine Ratio 17.9, Glucose 146 H, Calcium 7.6 L, Total Bilirubin 5.00 H, AST 53 H, ALT 185 H, Alkaline Phosphatase 482 H, Total Protein 4.3 L, A lbumin 1.5 L, Globulin 2.8, Albumin/Globulin Ratio 0.5 L 02/25/24 05:00: WBC 12.0 H, RBC 2.94 L, Hgb 8.5 L, Hct 26.2 L, MCV 89.1, MCH 28.9, MCHC 32.4, RDW Std Deviation 52.8 H, RDW Coeff of Andrews 16.1 H, Plt Count 66 L, MPV 11.6, Neut % (Auto) Not Reportable, Absolute Neuts (auto) 8.8 H, Absolute Lymphs (auto) 1.32, Total Counted 100, Neutrophils % (Manual) 70, Band Neutrophils % 3, Lymphocytes % (Manual) 11 L, Monocytes % (Manual) 3, M etamyelocytes % 6 H, Myelocytes % 4 H, Other Cells % 3, Diff Path Review May foll, Platelet Estimate MKD DEC, Polychromasia 1+, Anisocytosis 1+, Ovalocytes 1+, Schistocytes RARE 02/25/24 06:16: POC Glucose 140 H Micro: Microbiology 02/19/24 13:47 Blood Culture (Wb) - Anticubital Right Blood Culture - Final No growth in 5 days. 02/22/24 01:16 Mucosa - Nasopharyngeal Coronavirus COVID-19 PCR - Final SARS-CoV-2 (COVID 19 PCR) 02/22/24 01:16 Mucosa - Nasopharyngeal Respiratory Panel (PCR) - Final 02/22/24 13:05 Mucosa - Nose Coronavirus COVID-19 PCR - Final 02/19/24 17:40 Urine Catheter - Doran Urine Culture - Final Culture exhibits no growth. 02/20/24 08:10 Nasal Secretion MRSA (PCR) - Final Physical Exam Const alert Constitutional Narrative: Patient remains very weak and frail and lethargic. confused Orientation / Consciousness: disoriented and lethargic HEENT normocephalic and head/scalp atraumatic Eyes PERRL, EOMs intact bilaterally and conjunctivae normal Neck no lymphadenopathy, supple and no JVD Lymph Lymphatic: no lymphadenopathy noted Resp Resp Narrative: moderately diminished breath sounds bilaterally, mild wheezing with bilateral crackles. On 3L of oxygen by nasal canula Cardio regular rate, regular rhythm, S1 normal heart sound, S2 normal heart sound and no murmurs GI normal to inspection, nondistended, normoactive bowel sounds, soft to palpation, non-tender and non-distended GI Narrative: Extremity normal to inspection, full ROM, normal capillary refill and no clubbing, cyanosis or edema General Extremity: no tenderness to palpation of joints or extremities Skin Skin Narrative: Patient looks very pale General Skin Exam: no breakdown and turgor normal Neuro Neuro Narrative: very weak, frail and lethargic. Moves all extremities spontaneously. Motor Exam: general weakness Psych Psych Narrative: flat affect, lethargic Assessment & Plan Assessment/Plan (1) Acute upper gastrointestinal bleeding: (2) Acute hypotension: (3) Acute kidney injury: (4) Acute hypernatremia: PLAN: Plan #Shock likely multifactorial * resolved. Was initially thought to be hemorrhagic shock but subsequently thought to be multifactorial. * Was admitted with a complaint of hematemesis and worsening shock. She had emergent EGD which showed a Phyllis-Coy tear which was clipped and treated with heater probe. * she required 3 pressors, but is now off all pressors. * She is on IV vancomycin and Zosyn due to concerns about septic shock also. Blood and urine cultures are negative so far. * she is also on IV hydrocortisone for shock. * She had CT of the chest abdomen and pelvis which showed heterogeneous enlargement of the thyroid gland with right substernal extension, bilateral pleural effusions with bibasilar compressive atelectasis and/or infiltrate and moderate size hiatal hernia and findings suggestive of colitis in the left hemicolon with free fluid in the right hemipelvis. * general surgery on board for possible ischemic bowel as CT scan showed possible left sided colitis. * #Possible ischemic colitis * CT findings as above. * general surgery on board and per their documentation, they are unsure of the etiology of the shock. To get an oral CT scan to evaluate the colon and or small bowel. Per general surgery, even if there are signs of ischemia, they are unsure if she would sruvive the surgery. General surgery recommends conservative management for now. * Plan was to start on clear liquids yesterday but this was held in light of her bloody bowel movements. * Patient had 3 more episodes of bloody bowel movements overnight. She received 2 units of platelets in anticipation of an EGD or colonoscopy. now wants to switch her to DNR CC so no more aggressive workup * #Acute hypoxic respiratory failure * Due to COVID-19 infection as well as likely fluid overload. Patient required more oxygen overnight and is now 50% FiO2 via Venturi mask. * COVID test done overnight was positive. Repeat covid PCR was negative though. * had ultrafiltration and subsequently dialysis. She had initially been commenced on CRRT but this malfunctioned. * Had dialysis yesterday. Now down to 3 L of oxygen. Titrate oxygen to maintain saturation above 90%. Breathing treatments bronchodilators. * remdesivir dc'd as patient refused.. * Titrate oxygen to maintain saturation above 90%. ID on board. Pulmonology already on board. * Patient's family requested for repeat COVID test because they do not believe she had COVID. * Will defer to ID about whether to take out of isolation or otherwise. * 2D echo from 02/20/2024 showed EF of 55% with no evidence of diastolic dysfunction. * #Acute blood loss anemia * Likely due to upper GI bleed. Hb has been stable. * Patient and family do not want transfusion. Her son was however willing to donate blood and patient states he is willing to take blood from a family member. * Of note they are not Jehov[employer]'s [employer]es but they have their own unique beliefs that preclude her from getting blood. * Hemoglobin today is down to 8.5. Has been a switch her CODE STATUS to DNR CC today. #Thrombocytopenia: * She received 2 units of platelets yesterday after was agreeable to receiving platelets. Platelets are up to 66 from 29 yesterday. * I did discuss with hematology Dr. Bunch yesterday. States her platelets were normal at time of admission and he felt that it was likely due to acute illness. Patient has not received any heparin or Lovenox during this admission. This therefore unlikely that it is HIT. * She received 2 units of platelets yesterday and platelets up to 66 today. * today requested that she did not receive any blood products and he went to switch her CODE STATUS to DNR CC. * #Persistent Lactic acidosis: * Lactic acid was elevated but this is to be expected in light of the shock. * Urine cultures negative; blood cultures still pending. * Trend lactic acid. It still remains elevated. #DAGOBERTO with anion gap metabolic acidosis likely due to ischemic ATN * Creatinine is up to 5.09 today with bicarb of 23. * Nephrology on board. Has been on dialysis. * now does not want her to have anymore dialysis as CODE STATUS due to DNR CC. * * #Ischemic hepatitis * Total bilirubin today is 5. It has trended upwards from 4.5 yesterday. Could not have liver biopsy in light of the thrombocytopenia. Gastroenterology on board. AST and ALT as well as ALP have also been elevated. * However no further workup indicated in light of CODE STATUS been switched to DNR CC. * #Nutrition: on TPN. Has been NPO. Was not commenced on clear liquids yesterday because started having bloody bowel movements. Remains on T PN. #Schizophrenia and bipolar disorder: Hold her current medications as she is NPO. DVT prophylaxis: SCDs. No anticoagulation due to GI bleed and thrombocytopenia CODE STATUS: DNRCC * Patient's counseled extensively about different types of CODE STATUS including full code, DNR CCA and DNR CCA. He had requested the patient be switched to DNR CC as she did not want any further aggressive workup and did not want her to have any more antibiotics, dialysis or EGD or colonoscopy. He just wanted her to be made comfortable. He is willing to meet with hospice would prefer home hospice if that is available. * CODE STATUS switched to DNR CC * Total time spent: 20 mins * Prognosis: poor Charges/Coding Visit Charges Inpatient E&M: 24967 Subs Hosp L3 Procedures Hospitalists Procedures: 11965 Advncd Care Plan 30 Min
--- NOTE | 2024-02-25 14:33 | PN.CC_ITS ---
Objective Data Objective Data Vital Signs: Vital Signs Last response 3 Temperature 36.4 C L 02/25/24 06:00 Temperature Source Temporal 02/25/24 06:00 Pulse Rate 91 02/25/24 08:00 Pulse Strength Normal (2+) 02/24/24 10:00 Respiratory Rate 10 L 02/25/24 08:00 Respiratory Effort Normal 02/25/24 08:30 Respiratory Depth Normal 02/25/24 08:30 Respiratory Pattern Normal 02/25/24 08:30 Blood Pressure 97/54 L 02/25/24 08:00 Blood Pressure Mean 68 02/25/24 08:00 Blood Pressure Source Monitor 02/25/24 08:00 Blood Pressure Position Semi-Fowlers 02/25/24 08:00 Blood Pressure Location Left Arm 02/25/24 08:00 Baseline BP 66/47 02/19/24 13:11 Pulse Ox 98 02/25/24 08:15 Oxygen Delivery Method Nasal Cannula 02/25/24 08:30 Oxygen Flow Rate (L/min) 3 02/25/24 08:30 Fraction of Inspired Oxygen (FIO2) 50 02/22/24 13:00 EtCo2 (Normal 35-45 , high quality CPR 10-20 & ROSC>/=40mmHg 30 02/23/24 08:17 CLA-BSI maintained Yes 02/20/24 07:08 I&O: I&O Last 24 Hours 3 02/24/24 02/25/24 02/25/24 23:59 11:59 23:59 Intake Total 802020.32 Output Total 0 10 Balance 791995.32 -10 0 -10 I&O: Total Stay 3 02/19/24 09:30 thru 02/25/24 12:00 Intake Total 68597.5950 Output Total 7435 Balance 41358.5950 Current Meds Ordered / Administered: Current meds ordered / Administered 3 Generic Name Dose Route Start Last Admin Trade Name Freq PRN Reason Stop Dose Admin CRRT Dialysis Solution 9 bag 02/21/24 16:09 02/21/24 16:31 Pureflow B Solution 4k 5,000 Ml Bag PF 5 bag UD PRN Administration CRRT Protocol Chlorhexidine Gluconate 1 each 02/20/24 10:00 02/25/24 13:05 Chlorhexidine Gluc 2% Cloth 1 Each [place] TOPICAL Not Given DAILY SAIRA Clozapine 100 mg 02/21/24 10:00 02/25/24 13:06 Clozapine 100 Mg Tablet PO Not Given DAILY SAIRA Protocol Flumazenil 0.2 mg 02/23/24 08:00 Flumazenil 0.5 Mg/5 Ml Vial IV Q1M PRN Respirations <10 per minute Glucagon 1 mg 02/19/24 20:00 Glucagon 1 Mg/Ml Syringe IM X1 PRN Hypoglycemia Protocol Heparin Sodium (Porcine) 0 units 02/21/24 08:56 Heparin 10,000 Units/10 Ml Vial IV X1 PRN Emergency Dialysis Catheter DC Hydrocortisone Sodium Succinate 50 mg 02/23/24 22:00 02/25/24 13:06 Hydrocortisone Sod Succinate 100 Mg/2 Ml Vial IV Not Given Q12 SAIRA Sodium Chloride 250 mls @ 15 mls/hr 02/19/24 14:47 02/24/24 09:12 IV Infused .[id number] PRN Infusion Saline Flush Dextrose 250 mls @ 0 mls/hr 02/19/24 20:00 02/23/24 01:36 Dextrose 10%-Water IV Infused .Q0M PRN Infusion HYPOGLYCEMIA Protocol As Directed Pantoprazole Sodium 80 mg/ 100 mls @ 10 mls/hr 02/19/24 20:15 02/24/24 22:27 Sodium Chloride CONT INF 10 mls/hr Q10H SAIRA Administration Magnesium Sulfate 4 gm in 100 mls @ 25 mls/hr 02/21/24 08:56 IV X1 PRN Magnesium level < 1.6mg/dl Sodium Phosphate 30 mmol/ 260 mls @ 62.5 mls/hr 02/21/24 08:56 Sodium Chloride IV X1 PRN Phosphorus Level <2.5 Potassium Chloride 40 meq/ 270 mls @ 135 mls/hr 02/21/24 08:56 Sodium Chloride IV X1 PRN K+ <3.5 mEq/L Multivitamins 10 ml/ Zinc/ 2,011.2 mls @ 42 mls/hr 02/24/24 16:00 02/24/24 17:04 Copper/Manganese/Selenium 1 ml IV 02/25/24 15:47 42 mls/hr / Folic Acid 1 mg/ Total .Q24H SAIRA Administration Parenteral Nutrition Multivitamins 10 ml/ Zinc/ 2,011.2 mls @ 42 mls/hr 02/25/24 16:00 Copper/Manganese/Selenium 1 ml IV 02/26/24 15:47 / Folic Acid 1 mg/ Total .Q24H SAIRA Parenteral Nutrition Nitroglycerin 0.4 mg 02/19/24 14:55 Nitroglycerin (Inpatient Use) 0.4 Mg Tab.Subl SL Q5M PRN CARDIAC/CHEST PAIN Ondansetron HCl 4 mg 02/19/24 14:55 02/20/24 12:20 Ondansetron 4 Mg/2 Ml Vial IV 4 mg Q8H PRN PRN Administration NAUSEA/VOMITING Sodium Chloride 10 - 40 ml 02/19/24 14:47 02/24/24 22:31 0.9% Saline Lock 10 Ml Syringe IV 10 ml UD PRN Administration SALINE FLUSH Sodium Chloride 20 ml 02/21/24 08:56 0.9% Saline Lock 10 Ml Syringe IV UD PRN Emergency Dialysis Catheter DC Sodium Chloride 50 - 100 ml 02/21/24 08:56 0.9% Normal Saline 1,000 Ml Iv.Soln. IV UD PRN CRRT System Flush Lab / Micro Data 02/25/24 05:00 02/25/24 04:20 Labs: Laboratory Results - last 24 hr 02/24/24 14:20: WBC 10.1, RBC 3.07 L, Hgb 9.1 L, Hct 27.0 L, MCV 87.9, MCH 29.6, MCHC 33.7, RDW Std Deviation 51.0 H, RDW Coeff of Andrews 15.8 H, Plt Count 31 L*, M PV 12.1 H, Neut % (Auto) Not Reportable, Absolute Neuts (auto) 7.8 H, Absolute Lymphs (auto) 1.41, Total Counted 100, Neutrophils % (Manual) 75 H, Band Neutrophils % 2, Lymphocytes % (Manual) 14 L, Monocytes % (Manual) 4, M etamyelocytes % 4 H, Myelocytes % 1 H, Differential Comment SEE COMMENT, Diff Path Review Estela fam, Platelet Estimate MKD DEC, RBC Morphology NORM C+C, PT 14.8, INR 1.2, APTT 28.8, Blood Type B POSITIVE, Antibody Screen NEGATIVE 02/24/24 18:04: POC Glucose 110 H 02/25/24 00:24: POC Glucose 132 H 02/25/24 04:20: WBC Cancelled, Corrected WBC Cancelled, RBC Cancelled, Hgb Cancelled, Hct Cancelled, MCV Cancelled, MCH Cancelled, MCHC Cancelled, RDW Std Deviation Cancelled, RDW Coeff of Andrews Cancelled, Plt Count Cancelled, MPV Cancelled, Immature Gran % (Auto) Cancelled, Neut % (Auto) Cancelled, Lymph % (Auto) Cancelled, [place] % (Auto) Cancelled, Eos % (Auto) Cancelled, Baso % (Auto) Cancelled, Absolute Neuts (auto) Cancelled, Absolute Lymphs (auto) Cancelled, Total Counted Cancelled, Neutrophils % (Manual) Cancelled, Band Neutrophils % Cancelled, Lymphocytes % (Manual) Cancelled, Monocytes % (Manual) Cancelled, Eosinophils % (Manual) Cancelled, Basophils % (Manual) Cancelled, Metamyelocytes % Cancelled, Myelocytes % Cancelled, Promyelocytes % Cancelled, Blast Cells % Cancelled, Plasma Cell % (Manual) Cancelled, Other Cells % Cancelled, Nucleated RBC % Cancelled, Nucleated RBCs/100 WBC Cancelled, Differential Comment Cancelled, Diff Path Review Cancelled, Hypersegmented Neuts Cancelled, Atypical Lymphocytes Cancelled, Reactive Lymphocytes Cancelled, Smudge Cells Cancelled, Toxic Granulation Cancelled, Toxic Vacuolation Cancelled, Dohle Bodies Cancelled, Paula Rods Cancelled, Platelet Estimate Cancelled, Plt Morphology Comment Cancelled, RBC Morphology Cancelled 02/25/24 04:20: RBC Morphology Cancelled, Polychromasia Cancelled, Hypochromasia Cancelled, Basophilic Stippling Cancelled, Anisocytosis Cancelled, Microcytosis Cancelled, Macrocytosis Cancelled, Spherocytes Cancelled, Sickle Cells Cancelled, Target Cells Cancelled, Tear Drop Cells Cancelled, Ovalocytes Cancelled, Stomatocytes Cancelled, [place] Bodies Cancelled, Raf Cells Cancelled, Bite Cells Cancelled, Crenated Cell Cancelled, Acanthocytes (Spur) Cancelled, Rouleaux Cancelled, Schistocytes Cancelled, Sodium 138, Potassium 4.8, Chloride 107, Carbon Dioxide 23.0, Anion Gap 9, BUN 91 H, Creatinine 5.09 H , Estim Creat Clear Calc 10.10, Est GFR (MDRD) Af Amer 11 L, Est GFR (MDRD) Non- Af 9 L, BUN/Creatinine Ratio 17.9, Glucose 146 H, Calcium 7.6 L, Total Bilirubin 5.00 H, AST 53 H, ALT 185 H, Alkaline Phosphatase 482 H, Total Protein 4.3 L, A lbumin 1.5 L, Globulin 2.8, Albumin/Globulin Ratio 0.5 L 02/25/24 05:00: WBC 12.0 H, RBC 2.94 L, Hgb 8.5 L, Hct 26.2 L, MCV 89.1, MCH 28.9, MCHC 32.4, RDW Std Deviation 52.8 H, RDW Coeff of Andrews 16.1 H, Plt Count 66 L, MPV 11.6, Neut % (Auto) Not Reportable, Absolute Neuts (auto) 8.8 H, Absolute Lymphs (auto) 1.32, Total Counted 100, Neutrophils % (Manual) 70, Band Neutrophils % 3, Lymphocytes % (Manual) 11 L, Monocytes % (Manual) 3, M etamyelocytes % 6 H, Myelocytes % 4 H, Other Cells % 3, Diff Path Review May foll, Platelet Estimate MKD DEC, Polychromasia 1+, Anisocytosis 1+, Ovalocytes 1+, Schistocytes RARE 02/25/24 06:16: POC Glucose 140 H Micro: Microbiology 02/19/24 13:47 Blood Culture (Wb) - Anticubital Right Blood Culture - Final No growth in 5 days. Assessment and Plan . Assessment and plan: Chart and data reviewed Condition and plan d/w staff Noted plan for transition to comfort-only treatment Available as needed
--- NOTE | 2024-02-25 17:22 | DS.PCM_ITS ---
Providers Date of Admission: 02/25/24 Date of Discharge: 02/25/24 Primary Care Physician: Dr. Precious Aleman MD Consultations 02/19/24 18:06 Consult: [facility]able [facility] / Pulmonary Medicine Routine Consulting Provider: Nirav Hall Reason for Consult: Hypotension EMERGENT Consult: No Notified: Yes Date Notified: 02/19/24 Time Notified: 14:00 Method of Notification: Verbal 02/20/24 07:07 Consult: Nephrology Routine Consulting Provider: Callie Tracy Reason for Consult: DAGOBERTO EMERGENT Consult: No Notified: Yes Date Notified: 02/20/24 Time Notified: 07:44 Method of Notification: Answering Service 02/20/24 10:41 Consult: General Surgery Routine Consulting Provider: Deacon Peter Reason for Consult: Colitis on CT imaging, refractory shock EMERGENT Consult: No Notified: Yes Date Notified: 02/20/24 Time Notified: 10:41 Method of Notification: Verbal 02/22/24 06:59 Consult: Infectious Disease Routine Consulting Provider: Enrique Vargas Reason for Consult: COVID EMERGENT Consult: No Notified: Yes Date Notified: 02/22/24 Time Notified: 06:59 Method of Notification: Text 02/24/24 14:56 Consult: Oncology/Hematology Routine Consulting Provider: [facility] Reason for Consult: thrombocytopenia EMERGENT Consult: No Notified: Yes Date Notified: 02/24/24 Time Notified: 14:56 Method of Notification: Verbal Reason For Visit: syncope Diagnosis Discharge Diagnosis (1) Acute upper gastrointestinal bleeding: Status: Acute Code(s): K92.2 - Gastrointestinal hemorrhage, unspecified (2) Acute hypotension: Status: Acute Code(s): I95.9 - Hypotension, unspecified (3) Acute kidney injury: Status: Acute Code(s): N17.9 - Acute kidney failure, unspecified (4) Acute hypernatremia: Status: Acute Code(s): E87.0 - Hyperosmolality and hypernatremia Plan #Shock likely multifactorial * resolved. Was initially thought to be hemorrhagic shock but subsequently thought to be multifactorial. * Was admitted with a complaint of hematemesis and worsening shock. She had emergent EGD which showed a Phyllis-Cyo tear which was clipped and treated with heater probe. * she required 3 pressors, but is now off all pressors. * She is on IV vancomycin and Zosyn due to concerns about septic shock also. Blood and urine cultures are negative so far. * she is also on IV hydrocortisone for shock. * She had CT of the chest abdomen and pelvis which showed heterogeneous enlargement of the thyroid gland with right substernal extension, bilateral pleural effusions with bibasilar compressive atelectasis and/or infiltrate and moderate size hiatal hernia and findings suggestive of colitis in the left hemicolon with free fluid in the right hemipelvis. * general surgery on board for possible ischemic bowel as CT scan showed possible left sided colitis. * #Possible ischemic colitis * CT findings as above. * general surgery on board and per their documentation, they are unsure of the etiology of the shock. To get an oral CT scan to evaluate the colon and or small bowel. Per general surgery, even if there are signs of ischemia, they are unsure if she would sruvive the surgery. General surgery recommends conservative management for now. * Plan was to start on clear liquids yesterday but this was held in light of her bloody bowel movements. * Patient had 3 more episodes of bloody bowel movements overnight. She received 2 units of platelets in anticipation of an EGD or colonoscopy. now wants to switch her to DNR CC so no more aggressive workup * #Acute hypoxic respiratory failure * Due to COVID-19 infection as well as likely fluid overload. Patient required more oxygen overnight and is now 50% FiO2 via Venturi mask. * COVID test done overnight was positive. Repeat covid PCR was negative though. * had ultrafiltration and subsequently dialysis. She had initially been commenced on CRRT but this malfunctioned. * Had dialysis yesterday. Now down to 3 L of oxygen. Titrate oxygen to maintain saturation above 90%. Breathing treatments bronchodilators. * remdesivir dc'd as patient refused.. * Titrate oxygen to maintain saturation above 90%. ID on board. Pulmonology already on board. * Patient's family requested for repeat COVID test because they do not believe she had COVID. * Will defer to ID about whether to take out of isolation or otherwise. * 2D echo from 02/20/2024 showed EF of 55% with no evidence of diastolic dysfunction. * #Acute blood loss anemia * Likely due to upper GI bleed. Hb has been stable. * Patient and family do not want transfusion. Her son was however willing to donate blood and patient states he is willing to take blood from a family member. * Of note they are not [employer]hov[employer]'s [employer]es but they have their own unique beliefs that preclude her from getting blood. * Hemoglobin today is down to 8.5. Has been a switch her CODE STATUS to DNR CC today. #Thrombocytopenia: * She received 2 units of platelets yesterday after was agreeable to receiving platelets. Platelets are up to 66 from 29 yesterday. * I did discuss with hematology Dr. Bunch yesterday. States her platelets were normal at time of admission and he felt that it was likely due to acute illness. Patient has not received any heparin or Lovenox during this admission. This therefore unlikely that it is HIT. * She received 2 units of platelets yesterday and platelets up to 66 today. * today requested that she did not receive any blood products and he went to switch her CODE STATUS to DNR CC. * #Persistent Lactic acidosis: * Lactic acid was elevated but this is to be expected in light of the shock. * Urine cultures negative; blood cultures still pending. * Trend lactic acid. It still remains elevated. #DAGOBERTO with anion gap metabolic acidosis likely due to ischemic ATN * Creatinine is up to 5.09 today with bicarb of 23. * Nephrology on board. Has been on dialysis. * now does not want her to have anymore dialysis as CODE STATUS due to DNR CC. * * #Ischemic hepatitis * Total bilirubin today is 5. It has trended upwards from 4.5 yesterday. Could not have liver biopsy in light of the thrombocytopenia. Gastroenterology on board. AST and ALT as well as ALP have also been elevated. * However no further workup indicated in light of CODE STATUS been switched to DNR CC. * #Nutrition: on TPN. Has been NPO. Was not commenced on clear liquids yesterday because started having bloody bowel movements. Remains on T PN. #Schizophrenia and bipolar disorder: Hold her current medications as she is NPO. DVT prophylaxis: SCDs. No anticoagulation due to GI bleed and thrombocytopenia CODE STATUS: DNRCC * Patient's counseled extensively about different types of CODE STATUS including full code, DNR CCA and DNR CCA. He had requested the patient be switched to DNR CC as she did not want any further aggressive workup and did not want her to have any more antibiotics, dialysis or EGD or colonoscopy. He just wanted her to be made comfortable. He is willing to meet with hospice would prefer home hospice if that is available. * CODE STATUS switched to DNR CC * Total time spent: 20 mins * Prognosis: poor Medications at Discharge Home Medications lorazepam 0.5 mg tablet 0.5 mg PO DAILY 05/20/18 clozapine 100 mg tablet 100 mg PO BID 02/19/24 Hospital Course Operations None Procedures 2-D Echocardiogram and EGD Summary of Care Provided Minutes Spent on Discharge: 55 Hospital Course: DINO DELGADO, is a 78 F with a past medical history as outlined was admitted through the ED on 02/19/2024 with a complaint of hematemesis. History was mainly gotten from . According to patient's she woke up in the early hours of this morning with complaints of heartburn. She tried throwing up a few times and her states she had some dark coffee-ground substance coming out. She also subsequently developed diarrhea later in the day. Diarrhea was nonbloody. He said patient felt weak and tired and started having multiple episodes of hematemesis. She admitted to feeling lightheaded and dizzy. She did not take any [id number] pain meds or any blood thinners and was also not on aspirin. She had no history of liver disease. She did have bipolar and schizophrenia and was on clonazepam and lorazepam which she had been taking. Review of systems was otherwise negative. She had never had any history of GI bleed previously. On arrival in the ED, patient was markedly hypotensive with blood pressure down at 66/47. She was on 4 L of oxygen temperature was 95.8 Fahrenheit with pulse rate of 88 respirate rate of 16. Her blood pressure still remained low in the 90s systolic and so she was taken emergently to the endoscopy suite by gastroenterology and she had an urgent EGD which showed a Phyllis-Coy tear which was injected and treated with heater probe and clips were placed. She had a small hiatal hernia and stomach was normal as well as normal second portion of the duodenum. Patient however remained hypotensive and was not responding to fluids so she was emergently admitted to the ICU and critical care was consulted. Patient was seen in the ICU after she had a EGD. She had been started on Levophed and was up to 10 mcg/min. Her 3 sons and [id number] as well as her were by her bedside. She was very weak and lethargic though she could answer questions. SHe was admitted and managed for shock, likely multifactorial. she was started on broad spectrum antibiotics with IV vancomycin and zosy. Critical care was consulted. She eventually required vasopressin, phenylephrine in addition to levophed to help maintain hemodynamic support. She had a protracted and complicated course. She developed DAGOBERTO and became anuric, eventually requiring CRRT, the had ultrafiltration and then dialysis. Blood and urine cultures were negative. She started having abdominal pain, and general surgery was consulted due to concerns about ischemic colitis. She had CT of the abdomen and pelvis which showed no acute abdominal pathology. She developed severe thrombocytopenia with platelets going down to the 20s. Patient was unwilling to receive any blood transfusion unless the blood was donated by a family member. who was her POA was however willing to have her receive patelet transfusions. She received 2 units of platelets, and her platelets went up to 66. GI planned on doing a colonoscopy. Patient also had worsening liver enzymes which was thought to be due to ischemic hepatitis. Liver enzymes stilll did not improve despite the resolution of the multifactorial shock. She was scheduled for a liver biopsy but this could not be done due to the thrombocytopenia. Patient continued to deteriorate and was placed on TPN for nutrition. She also developed acute hypoxic respiratory failure, requiring BIPAP. COVID test done was positive. Family requested repeat covid test and the covid PCR test was negative. Her hypoxic respiratory failure improved with dialysis. She refused remdesivir. Patient's on 02/25/2024 decided to opt for DNRCC code status as he did not want patient to continue suffering. He did not want her to have any more antibiotics, dialysis or liver biopsy, neither didhe want her to have a colonoscopy nad. or repeat EGD. He opted for hospice consult. Hospice reviewed patient and patient was accepted in home hospice on 02/25/2024. She was discharged to home hospice on 02/25/2024. Physical Exam Const alert Constitutional Narrative: Patient remains very weak and frail and lethargic. confused Orientation / Consciousness: disoriented and lethargic HEENT normocephalic and head/scalp atraumatic Eyes PERRL, EOMs intact bilaterally and conjunctivae normal Neck no lymphadenopathy, supple and no JVD Lymph Lymphatic: no lymphadenopathy noted Resp normal respiratory effort, no retractions, no use of accessory muscles and clear to auscultation bilaterally Resp Narrative: moderately diminished breath sounds bilaterally, mild wheezing with bilateral crackles. On 3L of oxygen by nasal canula Cardio regular rate, regular rhythm, S1 normal heart sound, S2 normal heart sound and no murmurs GI normal to inspection, nondistended, normoactive bowel sounds, soft to palpation, non-tender and non-distended GI Narrative: Extremity normal to inspection, full ROM, normal capillary refill and no clubbing, cyanosis or edema General Extremity: no tenderness to palpation of joints or extremities Skin Skin Narrative: Patient looks very pale General Skin Exam: no breakdown and turgor normal Neuro CN's II-XII intact bilaterally, no focal motor deficits and no sensory deficits noted Neuro Narrative: very weak, frail and lethargic. Moves all extremities spontaneously. Motor Exam: general weakness Psych Psych Narrative: flat affect, lethargic Weight / BMI Weight Weight: 191 lb 9.6 oz Body Mass Index (BMI) 32.7 ABG / Lab / Microbiology Data 02/25/24 05:00 02/25/24 04:20 Laboratory: Laboratory Results - last 24 hr 02/24/24 14:20: Blood Type B POSITIVE, Antibody Screen NEGATIVE 02/24/24 18:04: POC Glucose 110 H 02/25/24 00:24: POC Glucose 132 H 02/25/24 04:20: WBC Cancelled, Corrected WBC Cancelled, RBC Cancelled, Hgb Cancelled, Hct Cancelled, MCV Cancelled, MCH Cancelled, MCHC Cancelled, RDW Std Deviation Cancelled, RDW Coeff of Andrews Cancelled, Plt Count Cancelled, MPV Cancelled, Immature Gran % (Auto) Cancelled, Neut % (Auto) Cancelled, Lymph % (Auto) Cancelled, [place] % (Auto) Cancelled, Eos % (Auto) Cancelled, Baso % (Auto) Cancelled, Absolute Neuts (auto) Cancelled, Absolute Lymphs (auto) Cancelled, Total Counted Cancelled, Neutrophils % (Manual) Cancelled, Band Neutrophils % Cancelled, Lymphocytes % (Manual) Cancelled, Monocytes % (Manual) Cancelled, Eosinophils % (Manual) Cancelled, Basophils % (Manual) Cancelled, Metamyelocytes % Cancelled, Myelocytes % Cancelled, Promyelocytes % Cancelled, Blast Cells % Cancelled, Plasma Cell % (Manual) Cancelled, Other Cells % Cancelled, Nucleated RBC % Cancelled, Nucleated RBCs/100 WBC Cancelled, Differential Comment Cancelled, Diff Path Review Cancelled, Hypersegmented Neuts Cancelled, Atypical Lymphocytes Cancelled, Reactive Lymphocytes Cancelled, Smudge Cells Cancelled, Toxic Granulation Cancelled, Toxic Vacuolation Cancelled, Dohle Bodies Cancelled, Paula Rods Cancelled, Platelet Estimate Cancelled, Plt Morphology Comment Cancelled, RBC Morphology Cancelled 02/25/24 04:20: RBC Morphology Cancelled, Polychromasia Cancelled, Hypochromasia Cancelled, Basophilic Stippling Cancelled, Anisocytosis Cancelled, Microcytosis Cancelled, Macrocytosis Cancelled, Spherocytes Cancelled, Sickle Cells Cancelled, Target Cells Cancelled, Tear Drop Cells Cancelled, Ovalocytes Cancelled, Stomatocytes Cancelled, [place] Bodies Cancelled, [place] Cells Cancelled, Bite Cells Cancelled, Crenated Cell Cancelled, Acanthocytes (Spur) Cancelled, Rouleaux Cancelled, Schistocytes Cancelled, Sodium 138, Potassium 4.8, Chloride 107, Carbon Dioxide 23.0, Anion Gap 9, BUN 91 H, Creatinine 5.09 H , Estim Creat Clear Calc 10.10, Est GFR (MDRD) Af Amer 11 L, Est GFR (MDRD) Non- Af 9 L, BUN/Creatinine Ratio 17.9, Glucose 146 H, Calcium 7.6 L, Total Bilirubin 5.00 H, AST 53 H, ALT 185 H, Alkaline Phosphatase 482 H, Total Protein 4.3 L, A lbumin 1.5 L, Globulin 2.8, Albumin/Globulin Ratio 0.5 L 02/25/24 05:00: WBC 12.0 H, RBC 2.94 L, Hgb 8.5 L, Hct 26.2 L, MCV 89.1, MCH 28.9, MCHC 32.4, RDW Std Deviation 52.8 H, RDW Coeff of Andrews 16.1 H, Plt Count 66 L, MPV 11.6, Neut % (Auto) Not Reportable, Absolute Neuts (auto) 8.8 H, Absolute Lymphs (auto) 1.32, Total Counted 100, Neutrophils % (Manual) 70, Band Neutrophils % 3, Lymphocytes % (Manual) 11 L, Monocytes % (Manual) 3, M etamyelocytes % 6 H, Myelocytes % 4 H, Other Cells % 3, Diff Path Review May foll, Platelet Estimate MKD DEC, Polychromasia 1+, Anisocytosis 1+, Ovalocytes 1+, Schistocytes RARE 02/25/24 06:16: POC Glucose 140 H Microbiology: Microbiology 02/19/24 13:47 Blood Culture (Wb) - Anticubital Right Blood Culture - Final No growth in 5 days. 02/22/24 01:16 Mucosa - Nasopharyngeal Coronavirus COVID-19 PCR - Final SARS-CoV-2 (COVID 19 PCR) 02/22/24 01:16 Mucosa - Nasopharyngeal Respiratory Panel (PCR) - Final 02/22/24 13:05 Mucosa - Nose Coronavirus COVID-19 PCR - Final 02/19/24 17:40 Urine Catheter - Doran Urine Culture - Final Culture exhibits no growth. 02/20/24 08:10 Nasal Secretion MRSA (PCR) - Final Meaningful Use Info Meaningful Use Meaningful Use Diagnoses (Choose all that apply): None applicable Ischemic Stroke Statin Dosing Therapy Reference: STATIN DOSE THERAPY REFERENCE: * Patients > 75 years receive moderate or high dose statin therapy. * Patients 75 years or YOUNGER should receive HIGH intensity statin dose unless contraindicated. You will be required to document reason for non-treatment if statin daily dose does not meet guidelines. HIGH DOSE STATIN THERAPY DAILY Atorvastatin > than or = to 40 mg Rosuvastatin > than or = to 20 mg Amlodipine + Atorvastatin > than or = to 2.5/40 mg Ezetimibe + Simvastatin 10/80 mg Simvastatin 80mg Discharge Plan Admission Admit Date/Time: 02/25/24 15:35 Primary Reason for Your Visit: GI bleed, anemia, shock Attending Provider: Berry Bettencourt Primary Care Provider: Precious Aleman Consulting Providers: Callie Tracy; Nirav Hall; Deacon Peter; Enrique Vargas; Dennis Belcher; Kerwin Holm; Anay Bunch; Enrique Sanz; Dave Healy; [place]; [place]; Nury Donovan INFORMATION ANALYST Instructions Patient Instructions: GO RN Biopsy Liver yT, GO RN Procedural Sedation Discharge Orders/Prescriptions Prescriptions: No Action lorazepam 0.5 MG tablet 0.5 mg PO DAILY clozapine 100 mg tablet 100 mg PO BID Referrals / Follow Up: Care Physician,No Primary [Non-Staff] - Disposition Disposition (needs filled in before D/C Order can be placed): Hospice in Home Charges/Coding Visit Charges Inpatient E&M: 81649 Disch Hosp >30min
[2024-02-26 13:53] LABS: Pathologist Review Reviewed
[2024-02-26 13:55] LABS: Pathologist Review Reviewed
[2024-02-26 14:03] LABS: Pathologist Review Reviewed
[2024-02-26 14:04] LABS: Pathologist Review Reviewed
== END 2024-02-25 21:15 | disposition hospice, home (50) | DRG 368 ==
LOC: ED 11:04 → EN 11:23 → ACINP 11:23 → EN 12:30 → ICU 21:14
PROVIDERS: Family Medicine; Internal Medicine Critical Care Medicine; Internal Medicine Nephrology; Surgery; Admitting Provider Student in an Organized Health Care Education/Training Program; Emergency Provider Emergency Medicine; PCP Internal Medicine; Referring Provider Internal Medicine; Visit Provider Internal Medicine Gastroenterology
PROC: 0DJ08ZZ Inspection of Upper Intestinal Tract, Via Natural or Artificial Opening Endoscopic (ICD-10-PCS; CPT 43235; principal; 2024-02-19 12:40)
DX: K22.6 Gastro-esophageal laceration-hemorrhage syndrome (principal); R57.8 Other shock; J96.01 Acute respiratory failure with hypoxia; K72.00 Acute and subacute hepatic failure without coma; N17.0 Acute kidney failure with tubular necrosis; G93.41 Metabolic encephalopathy; A41.9 Sepsis, unspecified organism; R65.21 Severe sepsis with septic shock; U07.1 COVID-19; D62 Acute posthemorrhagic anemia; F20.9 Schizophrenia, unspecified; K44.9 Diaphragmatic hernia without obstruction or gangrene; F31.9 Bipolar disorder, unspecified; E87.5 Hyperkalemia; E16.2 Hypoglycemia, unspecified; D69.6 Thrombocytopenia, unspecified; Z53.1 Procedure and treatment not carried out because of patient's decision for reasons of belief and group pressure; Z66 Do not resuscitate; Z79.899 Other long term (current) drug therapy
CPT/HCPCS: 36569; 36600; 51702; 71045; 71250; 74018; 74176; 76770; 80048; 80053; 80069; 80076; 81001; 82140; 82248; 82550; 82728; 82803; 82962; 83605; 83615; 83690; 83735; 83880; 84100; 84145; 84478; 84484; 85014; 85018; 85025; 85027; 85379; 85384; 85610; 85652; 85730; 86140; 86850; 86900; 86901; 86920; 86922; 86965; 87040; 87086; 87633; 87635; 87641; 90937; 90947; 93005; 93306; 93970; 94762; 97802; 97803; 99285; J7030; J7040; J7050; J7120; P9035; A4216; C1752; G0257; J2354; J2405; J3490; J7799